=== PATIENT | female | born 1950 | race Caucasian/White ===

== ENCOUNTER → 2017-07-20 08:08 | Outpatient (CLI) | payer MEDICARE, SELFPAY ==
--- NOTE | 2017-07-20 13:51 | NEURO ---
NCS and/or EMG Patient Report Ordering Doctor: Go Davis DATE OF SERVICE: 07/20/17 Keyla Atwood is a 66-year-old female presents to chief complaint of numbness and tingling in both hands. Symptoms are worse on the left side. Electrodiagnostic findings: Median motor nerve demonstrates prolonged distal latency with normal amplitude and borderline reduced conduction velocity bilaterally. Normal left and right ulnar motor response bilaterally. Normal median ulnar F waves. Prolonged median sensory distal latency is noted bilaterally. On needle EMG, all muscles tested in the upper limbs show no evidence of denervation with normal motor unit action potentials Electrodiagnostic Impression: This is an abnormal study 1) Findings demonstrate bilateral median mononeuropathy. This is consistent with a moderate bilateral carpal tunnel syndrome If there are any further questions in regards to this exam, please do not hesitate to contact me
== END ==
PROVIDERS: Family Provider Family Medicine; PCP Family Medicine; Visit Provider Family Medicine
DX: R20.2 Paresthesia of skin (principal)
CPT/HCPCS: 95886; 95912

== ENCOUNTER 2017-09-13 05:54 | Day surgery (SDC) | payer MEDICARE, SELFPAY ==
--- NOTE | 2017-09-09 16:23 | PCM.HP.BLA ---
History and Physical DATE OF SURGERY: 09/13/2017 SCHEDULED PROCEDURE: Left carpal tunnel release, corticosteriod injection right carpal tunnel HISTORY OF PRESENT ILLNESS: This is a 66-year-old female who is been having ongoing bilateral hand pain for several years. Patient states the left is worse than the right. Patient complains of constant pain. It can reach as high as a 10 out of 10. Patient states she has numbness and tingling in all fingers of both hands. The pain does awaken her at night. She has increased pain with activities of daily living including driving gripping grasping objects. She has undergone an EMG nerve conduction study exam which does show bilateral carpal tunnel syndrome. After discussion with Dr. Pascual Albrecht, the patient would like to proceed with a left carpal tunnel release and corticosteroid injection into the right carpal tunnel. Patient currently denies any chest pain, shortness breath, fevers chills, or recent infections. Patient does have a medical history pertinent for hypercholesterolemia, irritable bowel syndrome and previous breast cancer. REVIEW OF SYSTEMS: ROS: Const: Denies anorexia, anxiety, change in appetite, fever and weight change,hard of hearing, and vision problems. Eyes: Wears contact lenses. ENMT: Reports hearing loss. CV: Denies chest pain, heart murmur, irregular heartbeat and peripheral vascular disease. Resp: Reports asthma (ALLERY INDUCED) but denies cough, pneumonia, sleep apnea, SOB, tuberculosis and wheezing GI: Reports constipation, diarrhea, dysphagia, heartburn, nausea and vomiting, but denies bloody stools, and difficulty swallowing. : Genital:. (F Genital Sx) Urinary: denies incontinence. Musculo: Denies leg swelling, trouble walking and weakness and limp. Skin: Denies Raynaud's, history of shingles and tattoo. Neuro: Reports difficulty with balance, numbness/tingling and vertigo but denies ambulatory dysfunction, dizziness and tremor. Psych: Reports insomnia at times, and stress, but denies anxiety, depression and mental illness Festus/Lymph: Reports bleeding/bruising tendency and past transfusion, but denies anemia. Reviewed, no changes. PAST MEDICAL HISTORY: Advance Care Plan: Other Directive, LIVING WILL Effective Date: 07/28/2016 Other Directive, POA Effective Date: 07/28/2016 PMH: Medical Problems: Cancer - breast - lumpectomy Hypercholesterolemia, IBS Accidents: Fracture - rt foot Other - concussion, stitches over l eye, nerve damage rt foot Surgical Hx: Foot - (1998) RT Hysterectomy - (1989) Tonsillectomy - (1962) Tubal Ligation - (1979) Rhinoplasty - 1975,1985 Lumpectomy - (2002) RT TKR - (07/28/2015) Spinal Fusions - X2 RT Knee Arthroscopy - (02/06/2015) Section - X3 RT TKR Revision - (08/25/2016) [email or web address] Anesthesia Complications: Nausea, Vomiting Assistive Devices: Glasses, Contacts - RT EYE Reviewed and updated. SOCIAL HISTORY: SH: Marital: .Occupation: Retired.Work Status: Retired.Hand Dominance: Right-handed. Personal Habits: Cigarette Use: Never.Alcohol: Occasionally.Drug Use: Denies Use.Enjoy Exercising: Exercises 1-3 X/Week. Reviewed and updated. VITALS: Ht: 64.5 Wt: 165lb Wt k.844 BMI: 27.9 BP: 142/86 Pulse: 68 Resp: 16 T: 97.7 T: 36.5C ALLERGIES: Cholesterol Unknown Statins Latex - Topical Reaction Pain Killers Unknown Iodine - Rash MEDICATIONS: Tramadol HCL 50 mg 1-2 by mouth every 6 hours as needed pain, Omeprazole 20 mg 1 cap PO bid, Montelukast Sodium 10 mg 1 by mouth every day, Azelastine HCL (Nasal) 0.1 % two sprays qhs, Fluticasone Propionate 50 mcg/Act uad, Vitamin D3 2000 Unit 1 by mouth every day, Calcium 500 mg 1 tab by mouth three times a day, Vitamin B6 1 tab PO tid, Zinc 1 tab PO tid, Alavert 10 mg 1 daily PRE-OP EXAM: General appearance:NORMAL Other: Eyes: Conjunctivae and lids: NORMAL Pupils: ERR Ears, Nose, Mouth, and Throat: NORMAL Other: Inspection of lips, teeth and gums: NORMAL Other: Neck: Examination of neck: no masses noted. Respiratory: Assessment of respiratory effort: NORMAL Other: Ausculation of lungs: clear to ausculation no wheeses, ronchi or rales. Cardiovascular: Ausculation of heart: regular rate and rhythem, no mummurs, gallops or rubs. Exam of carotid arteries: NORMAL Other: Gastrointestinal: Exam of abdomen: soft, nontender, nondistended bowel sounds present. PHYSICAL EXAMINATION: No appreciable atrophy bilaterally. Patient has full composite fist bilaterally full extension of fingers. She has good range of motion of bilateral wrists. She has decreased thumb strength on the left when compared to the right. Two-point discrimination is 5 mm throughout the right hand and 7 mm in the left thumb, 5 mm and the remainder of the digits on the left. IMAGING STUDIES: EMG nerve conduction study exam was obtained on August 01, 2017 which does show moderate carpal tunnel syndrome bilaterally. IMPRESSION: 1. Bilateral carpal tunnel syndrome 2. Hypercholesterolemia 3. Irritable bowel syndrome 4. Previous history of breast cancer with lumpectomy PLAN: Dr. Albrecht did discuss and review with the patient all treatment options including surgical versus nonsurgical. Patient wishes to proceed with above-stated procedure. Potential risks, benefits, and complications of this procedure were discussed in detail including but not limited to , infection, nerve and blood vessel damage, persistent pain, numbness, tingling, paresthesias, blood clot, pulmonary embolism, and requirement for further surgery. The patient expressed full understanding has no further questions for the doctor. Patient does agree to proceed with the above-stated procedure and has signed the surgery consent form. ___ I have re-examined the patient. There are no clinical changes since date of exam. ___ See progress notes for changes. ___ Dictated on admission Date: Time: Signature:
--- NOTE | 2017-09-09 16:29 | HP.PCM_ITS ---
History and Physical DATE OF SURGERY: 09/13/2017 SCHEDULED PROCEDURE: Left carpal tunnel release, corticosteriod injection right carpal tunnel HISTORY OF PRESENT ILLNESS: This is a 66-year-old female who is been having ongoing bilateral hand pain for several years. Patient states the left is worse than the right. Patient complains of constant pain. It can reach as high as a 10 out of 10. Patient states she has numbness and tingling in all fingers of both hands. The pain does awaken her at night. She has increased pain with activities of daily living including driving gripping grasping objects. She has undergone an EMG nerve conduction study exam which does show bilateral carpal tunnel syndrome. After discussion with Dr. Pascual Albrecht, the patient would like to proceed with a left carpal tunnel release and corticosteroid injection into the right carpal tunnel. Patient currently denies any chest pain, shortness breath, fevers chills, or recent infections. Patient does have a medical history pertinent for hypercholesterolemia, irritable bowel syndrome and previous breast cancer. REVIEW OF SYSTEMS: ROS: Const: Denies anorexia, anxiety, change in appetite, fever and weight change, hard of hearing, and vision problems. Eyes: Wears contact lenses. ENMT: Reports hearing loss. CV: Denies chest pain, heart murmur, irregular heartbeat and peripheral vascular disease. Resp: Reports asthma (ALLERY INDUCED) but denies cough, pneumonia, sleep apnea, SOB, tuberculosis and wheezing GI: Reports constipation, diarrhea, dysphagia, heartburn, nausea and vomiting, but denies bloody stools, and difficulty swallowing. : Genital:. (F Genital Sx) Urinary: denies incontinence. Musculo: Denies leg swelling, trouble walking and weakness and limp. Skin: Denies Raynaud's, history of shingles and tattoo. Neuro: Reports difficulty with balance, numbness/tingling and vertigo but denies ambulatory dysfunction, dizziness and tremor. Psych: Reports insomnia at times, and stress, but denies anxiety, depression and mental illness Festus/Lymph: Reports bleeding/bruising tendency and past transfusion, but denies anemia. Reviewed, no changes. PAST MEDICAL HISTORY: Advance Care Plan: Other Directive, LIVING WILL Effective Date: 07/28/2016 Other Directive, POA Effective Date: 07/28/2016 PMH: Medical Problems: Cancer - breast - lumpectomy Hypercholesterolemia, IBS Accidents: Fracture - rt foot Other - concussion, stitches over l eye, nerve damage rt foot Surgical Hx: Foot - (1998) RT Hysterectomy - (1989) Tonsillectomy - (1962) Tubal Ligation - (1979) Rhinoplasty - 1975,1985 Lumpectomy - (2002) RT TKR - (07/28/2015) Spinal Fusions - X2 RT Knee Arthroscopy - (02/06/2015) Section - X3 RT TKR Revision - (08/25/2016) [email or web address] Anesthesia Complications: Nausea, Vomiting Assistive Devices: Glasses, Contacts - RT EYE Reviewed and updated. SOCIAL HISTORY: SH: Marital: .Occupation: Retired.Work Status: Retired.Hand Dominance: Right- handed. Personal Habits: Cigarette Use: Never.Alcohol: Occasionally.Drug Use: Denies Use.Enjoy Exercising: Exercises 1-3 X/Week. Reviewed and updated. VITALS: Ht: 64.5 Wt: 165lb Wt k.844 BMI: 27.9 BP: 142/86 Pulse: 68 Resp: 16 T: 97.7 T: 36.5C ALLERGIES: Cholesterol Unknown Statins Latex - Topical Reaction Pain Killers Unknown Iodine - Rash MEDICATIONS: Tramadol HCL 50 mg 1-2 by mouth every 6 hours as needed pain, Omeprazole 20 mg 1 cap PO bid, Montelukast Sodium 10 mg 1 by mouth every day, Azelastine HCL ( Nasal) 0.1 % two sprays qhs, Fluticasone Propionate 50 mcg/Act uad, Vitamin D3 2000 Unit 1 by mouth every day, Calcium 500 mg 1 tab by mouth three times a day , Vitamin B6 1 tab PO tid, Zinc 1 tab PO tid, Alavert 10 mg 1 daily PRE-OP EXAM: General appearance:NORMAL Other: Eyes: Conjunctivae and lids: NORMAL Pupils: ERR Ears, Nose, Mouth, and Throat: NORMAL Other: Inspection of lips, teeth and gums: NORMAL Other: Neck: Examination of neck: no masses noted. Respiratory: Assessment of respiratory effort: NORMAL Other: Ausculation of lungs: clear to ausculation no wheeses, ronchi or rales. Cardiovascular: Ausculation of heart: regular rate and rhythem, no mummurs, gallops or rubs. Exam of carotid arteries: NORMAL Other: Gastrointestinal: Exam of abdomen: soft, nontender, nondistended bowel sounds present. PHYSICAL EXAMINATION: No appreciable atrophy bilaterally. Patient has full composite fist bilaterally full extension of fingers. She has good range of motion of bilateral wrists. She has decreased thumb strength on the left when compared to the right. Two-point discrimination is 5 mm throughout the right hand and 7 mm in the left thumb, 5 mm and the remainder of the digits on the left. IMAGING STUDIES: EMG nerve conduction study exam was obtained on August 01, 2017 which does show moderate carpal tunnel syndrome bilaterally. IMPRESSION: 1. Bilateral carpal tunnel syndrome 2. Hypercholesterolemia 3. Irritable bowel syndrome 4. Previous history of breast cancer with lumpectomy PLAN: Dr. Albrecht did discuss and review with the patient all treatment options including surgical versus nonsurgical. Patient wishes to proceed with above- stated procedure. Potential risks, benefits, and complications of this procedure were discussed in detail including but not limited to , infection , nerve and blood vessel damage, persistent pain, numbness, tingling, paresthesias, blood clot, pulmonary embolism, and requirement for further surgery. The patient expressed full understanding has no further questions for the doctor. Patient does agree to proceed with the above-stated procedure and has signed the surgery consent form. ___ I have re-examined the patient. There are no clinical changes since date of exam. ___ See progress notes for changes. ___ Dictated on admission Date: Time: Signature:
[2017-09-13] VITALS (7 sets, daily range): BP systolic 109–135; BP diastolic 55–75; PULSE 70–83; RESP 16–18; TEMP 35.9–36.4; O2SAT 94–100; BMI 26.9
--- NOTE | 2017-09-13 06:49 | PCM.OPRPT ---
Report of Operation Date of Procedure: 09/13/17 Pre-Operative Diagnosis: 1. Left carpal tunnel syndrome. 2. Right carpal tunnel syndrome Post-Operative Diagnosis: 1. Left carpal tunnel syndrome. 2. Right carpal tunnel syndrome Surgery/Procedure Performed:: 1. Left carpal tunnel release. 2. 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 After discussing risks and benefits including but not limited to blood loss, DVTs, PEs, neurovascular damage, infection, hematoma and general risk of anesthesia, the patient demonstrated understanding wish to proceed with left open carpal tunnel release Procedure: On the date of the procedure, the patient's left and right upper extremities were marked in the preoperative area. Patient was taken back to the operating room, where the tourniquet was placed on the right upper extremity. Patient was given light sedation. All bony prominences are identified well-padded. Anesthesia assumed control C-spine and airway and remained in control throughout the remainder the procedure. After patient was appropriately sedated the Right wrist was prepped in a sterile fashion. On the volar aspect of the wrist at the proximal wrist crease a 22-gauge needle was used to base 2 mL of 1% lidocaine and 1 mL of betamethasone performing the corticosteroid injection in the right wrist. At this time our attention was then directed back towards the left wrist where a Everest block was administered by anesthesia. The left upper extremity was prepped in sterile fashion. Surgeon then scrub. Upon reentering the room, the left upper extremity was prepped in a standard orthopedic fashion. A timeout was called and everyone agreed upon the side, the site, the procedure to be performed, patient identity and antibiotics given. The incision was marked out. Incision was taken at the skin subtenons tissue fat down to fascia. Fascia was then lightly tethered until the median nerve was visible. A Carson was placed proximally and distally, and then scissors were placed proximally and distally to release the transverse carpal ligament. During the release the others were never completely closed. The Carson was then placed proximally and distally once more to verify the transverse carpal ligament had been adequately released. The wound was then copiously irrigated out with normal saline. Wound was then closed using 3-0 nylon suture. [] cc of 50-50 mixture of 1% lidocaine and 0.5% Sensorcaine without epinephrine injection was given. Xeroform dressing was placed, sterile dressing was placed, compressive dressing was placed. Tourniquet was let down. Volar splint was placed. Patient was awakened by anesthesia and transferred to the PACU for recovery. Postoperative plan: The patient will follow up in 2 weeks for removal splint removal sutures. At that time if they are doing well they will follow-up as needed. - Complications None - Admit VTE Documentation VTE Present on Admission: No VTE Mechan Device Prophylaxis: SCD's, Thigh High TEE Hose VTE Pharm Prophylaxis ordered?: No Reason prophylaxis not ordered:: Treatment Not Indicated
[2017-09-13] MEDS: Cefazolin 1 GM/50 ML BAG IV (07:07)
[2017-09-13] MEDS: Triamcinolone Acetonide 40 MG/ML Vial (07:16)
[2017-09-13] MEDS: Bupivacaine 0.25% 30 ML Vial (07:23)
== END 2017-09-13 08:34 | disposition home or self-care (01) ==
LOC: SDC 05:55 → AC 05:57
PROVIDERS: Specialist; Family Provider Family Medicine; PCP Family Medicine; Visit Provider Orthopaedic Surgery
PROC: (CPT 64721; principal; 2017-09-13 07:00)
DX: G56.03 Carpal tunnel syndrome, bilateral upper limbs (principal); E78.00 Pure hypercholesterolemia, unspecified; K58.9 Irritable bowel syndrome, unspecified; K21.9 Gastro-esophageal reflux disease without esophagitis; Z85.3 Personal history of malignant neoplasm of breast; Z79.891 Long term (current) use of opiate analgesic; Z79.899 Other long term (current) drug therapy
CPT/HCPCS: 20605; 64721; J7120

== ENCOUNTER → 2017-09-19 11:16 | Outpatient (CLI) | payer MEDICARE, SELFPAY ==
[2017-09-19 13:02] LABS: Cholesterol 265 mg/dL (200); High Density Lipoprotein 75 mg/dL; Thyroid Stim Hormone (TSH) 1.85 uIU/mL (0.358-3.74); Triglycerides 147 mg/dL; Very Low Density Lipoprotein 29 mg/dL (5-40)
== END ==
PROVIDERS: Family Provider Family Medicine; PCP Family Medicine; Visit Provider Family Medicine
DX: E78.5 Hyperlipidemia, unspecified (principal); R63.5 Abnormal weight gain
CPT/HCPCS: 36415; 80061; 84443

== ENCOUNTER → 2018-01-06 09:53 | Outpatient (CLI) | payer MEDICARE, SELFPAY ==
--- NOTE | 2018-01-06 09:54 | BI_ITS ---
MAMMOGRAPHY - BILATERAL SCREENING REASON FOR EXAM: Female, 67 years old. Routine annual screening examination. PERTINENT HISTORY: Personal history of breast cancer. Prior left lumpectomy. Mother with breast cancer. TECHNIQUE: Digital bilateral breast bal (3D mammographic acquisition) in the CC and MLO projections. 2-D mediolateral oblique (MLO) and craniocaudad (CC) views of both breasts were obtained. CAD: Full Field Digital Mammography with Computer Added Detection was performed. COMPARISON: Comparison is made with prior study dated January 05, 2017 and November 04, 2015. FINDINGS: Breast Composition: There are scattered areas of fibroglandular density. There are no dominant masses or suspicious calcifications. Stable appearance of a 4.5 mm x 4.5 mm nodular density in the upper lateral aspect of the left breast. No other significant abnormalities are identified. There has been no significant change since the prior study. BI/SCREENING MAMM (CAD), BILAT IMPRESSION: Stable bilateral screening mammogram. Yearly follow-up mammogram recommended. (A) ASSESSMENT CATEGORY: BIRADS Category 2: Benign. A letter regarding these results will be sent to the patient by the facility within 30 days. Approximately 10% of breast cancers are not detected by mammography. A normal mammogram should not delay biopsy of a clinically suspicious abnormality. [id number] Electronically Signed: Charlie Walker MD at 12:37 EDT Tel [phone], Service support ,
== END ==
PROVIDERS: Family Provider Family Medicine; PCP Family Medicine; Visit Provider Family Medicine
DX: Z12.31 Encounter for screening mammogram for malignant neoplasm of breast (principal)
CPT/HCPCS: 77063; 77067

== ENCOUNTER 2018-03-13 05:48 | Day surgery (SDC) | payer MEDICARE, SELFPAY ==
[2018-03-13] VITALS (7 sets, daily range): BP systolic 113–134; BP diastolic 59–72; PULSE 67–85; RESP 16–18; TEMP 36–36.3; O2SAT 98–100; BMI 26.5
--- NOTE | 2018-03-13 07:01 | HP.PCM_ITS ---
Problem List (1) Personal history of colonic polyps Status: Acute History of Present Illness Date of Admission: 03/13/18 The patient is a 67 year old F presents to the office today for evaluation for colonoscopy. Patient had her last colonoscopy in [facility]. She was noted to have a tubular adenoma in the transverse colon which was subsequently removed. She has been moving her bowels appropriately has had no change in her bowel habits. Past Medical History Medical History: Medical History (Last Reviewed 03/13/18 @ 07:02 by Aldo Wheeler MD) Arthritis M19.90 Asthma J45.909 Breast cancer C50.919 Constipation K59.00 Diarrhea R19.7 GERD (gastroesophageal reflux disease) K21.9 Allergies latex Allergy (Verified 03/08/18 11:48) Rash oxycodone Allergy (Verified 03/08/18 11:48) UTACARIA acetaminophen [From [place]] Adverse Reaction (Verified 03/08/18 11:48) Nausea atorvastatin [From Lipitor] Adverse Reaction (Verified 03/08/18 11:48) MUSCLE CRAMPS hydrocodone [From [place]] Adverse Reaction (Verified 03/08/18 11:48) Nausea pravastatin Adverse Reaction (Verified 03/08/18 11:48) MUSCLE CRAMPS shellfish Allergy (Intermediate, Uncoded 01/12/18 14:22) rash/hives Home Medications: Ambulatory Orders Medication Instructions Recorded Azelastine HCl [Astelin] 2 spray NASAL DAILY 08/16/16 Calcium Carbonate [Calcium] 500 mg PO DAILY 08/16/16 Cholecalciferol (Vitamin D3) 2,000 unit PO DAILY 08/16/16 [Vitamin D3] Loratadine [Claritin] 10 mg PO DAILY 08/16/16 Montelukast Sodium [Singulair] 10 mg PO QHS 08/16/16 Omeprazole [Prilosec] 20 mg PO PRN PRN 08/16/16 Pyridoxine HCl [Vitamin B-6] 50 mg PO TID 09/12/17 Zinc 50 mg PO DAILY 09/12/17 fluticasone 50 mcg/actuation nasal 2 spray INTRANASAL QDAY 01/12/18 spray,suspension Surgical History: Surgical History (Last Reviewed 03/13/18 @ 07:02 by Aldo Wheeler MD) History of Z98.891 History of hysterectomy Z90.710 History of lumpectomy of left breast Z98.890 History of revision of total knee arthroplasty Z96.659 History of rhinoplasty Z98.890 History of spinal fusion Z98.1 History of tonsillectomy Z90.89 History of total knee replacement Z96.659 hhistory left carpal tunnel release history knee scope and meniscal repair Smoking Status: Never smoker - *Family History Maternal Family History: Family History (Last Reviewed 01/17/18 @ 14:36 by Aldo Wheeler MD) Mother Arthritis Bleeding disorder Breast cancer Cancer Brother Arthritis Grandmother Bleeding disorder History Items: No pertinent history Review of Systems Cardiovascular: Denies: Chest Pain, Chest Pressure, Chest Tightness, Palpitations Respiratory: Denies: Cough, Hemoptysis, Shortness of breath at rest, Shortness of breath upon exertion, Wheezing Gastrointestinal: Denies: Abdominal Pain, Constipation, Diarrhea, Hematemesis, Nausea, Melena, Vomiting VTE Information - Inpt Only VTE Present on Admission: No VTE Mechan Device Prophylaxis: None VTE Pharm Prophylaxis ordered?: No Reason prophylaxis not ordered:: Treatment Not Indicated Patient Problems: Active and Suspected Problems (Last Reviewed 01/17/18 @ 14:36 by Aldo Wheeler MD) Personal history of colonic polyps (Acute) - Physical Exam Lungs: Clear to auscultation Cardiovascular: Regular rate, Regular Rhythm, No murmurs Abdomen: Bowel Sounds Present, Soft, Non Tender, Non-Distended Vital Signs Temp Pulse Resp BP Pulse Ox 96.8 F L 67 16 134/72 H 100 03/13/18 06:27 03/13/18 06:27 03/13/18 06:27 03/13/18 06:27 03/13/18 06:27 Oxygen Delivery Method Room Air Weight: 161 lb 13.109 oz Body Mass Index (BMI) 26.5 Assessment/Plan All Active Problems (Last Reviewed 01/17/18 @ 14:36 by Aldo Wheeler MD) Personal history of colonic polyps (Acute) Plan is to perform a colonoscopy on her.
--- NOTE | 2018-03-13 07:28 | OP.ENDO_ITS ---
Patient Name: Keyla Atwood Procedure Date: 03/13/2018 6:49 AM Date of : 1950 Age: 67 Procedure: Colonoscopy Indications: High risk colon cancer surveillance: Personal history of colonic polyps Providers: Aldo Wheeler MD Medicines: See the Anesthesia note for documentation of the administered medications Patient Profile: Last Colonoscopy: 5 years ago. Complications: No immediate complications. Procedure: Pre-Anesthesia Assessment: - Prior to the procedure, a History and Physical was performed, and patient medications and allergies were reviewed. The patient's tolerance of previous anesthesia was also reviewed. The risks and benefits of the procedure and the sedation options and risks were discussed with the patient. All questions were answered, and informed consent was obtained. Prior Anticoagulants: The patient has taken no previous anticoagulant or antiplatelet agents. ASA Grade Assessment: II - A patient with mild systemic disease. After reviewing the risks and benefits, the patient was deemed in satisfactory condition to undergo the procedure. After I obtained informed consent, the scope was passed under direct vision. Throughout the procedure, the patient's blood pressure, pulse, and oxygen saturations were monitored continuously. The adult colonoscope was introduced through the anus and advanced to the cecum, identified by appendiceal orifice and ileocecal valve. The colonoscopy was performed without difficulty. The patient tolerated the procedure well. The quality of the bowel preparation was good. Scope In: 7:07:01 AM Scope Withdrawal Time 0 hours 6 minutes 7 seconds Scope Out: 7:20:50 AM Total Procedure Duration Time 0 hours 13 minutes 49 seconds Findings: The perianal and digital rectal examinations were normal. Multiple small-mouthed diverticula were found in the sigmoid colon. The exam was otherwise without abnormality on direct and retroflexion views. Impression: - Diverticulosis in the sigmoid colon. - The examination was otherwise normal on direct and retroflexion views. - No specimens collected. Recommendation: - Discharge patient to home. - Resume previous diet. - Continue present medications. - Return to primary care physician PRN. - Repeat colonoscopy in 10 years for screening purposes. Procedure Code(s): --- Professional --- G0105, Colorectal cancer screening; colonoscopy on individual at high risk Diagnosis Code(s): --- Professional --- Z86.010, Personal history of colonic polyps K57.30, Diverticulosis of large intestine without perforation or abscess without bleeding CPT copyright 2017 [employer]. All rights reserved. The codes documented in this report are preliminary and upon psychological operations officer review may be revised to meet current compliance requirements. MD Aldo Herr MD 03/13/2018 7:27:51 AM This report has been signed electronically. Number of Addenda: 0 Note Initiated On: 03/13/2018 6:49 AM
== END 2018-03-13 08:18 | disposition home or self-care (01) ==
LOC: EN 05:50 → AC 05:51
PROVIDERS: Family Provider Family Medicine; PCP Family Medicine; Visit Provider Surgery
PROC: 0DJD8ZZ Inspection of Lower Intestinal Tract, Via Natural or Artificial Opening Endoscopic (ICD-10-PCS; CPT 45378; principal; 2018-03-13 06:55)
DX: Z12.11 Encounter for screening for malignant neoplasm of colon (principal); K57.30 Diverticulosis of large intestine without perforation or abscess without bleeding; Z86.010 Personal history of colon polyps; K21.9 Gastro-esophageal reflux disease without esophagitis; J45.909 Unspecified asthma, uncomplicated; Z85.3 Personal history of malignant neoplasm of breast; Z79.899 Other long term (current) drug therapy
CPT/HCPCS: G0121; J7120

== ENCOUNTER → 2018-04-05 10:07 | Outpatient (CLI) | payer MEDICARE, SELFPAY | PROVIDERS: Family Provider Family Medicine; PCP Family Medicine; Visit Provider Family Medicine | DX: R10.13 Epigastric pain (principal); K21.9 Gastro-esophageal reflux disease without esophagitis ==

== ENCOUNTER → 2018-07-03 11:36 | Outpatient (CLI) | payer MEDICARE, SELFPAY ==
[2018-07-03 15:28] LABS: Absolute Neutrophil Count 4.4 X10^3/uL (2.0-7.7); Basophil# 0.03 X10^3/uL; Basophil% 0.4 % (0-1); Eosinophil# 0.15 X10^3/uL; Eosinophils% 2.2 % (0-5); Hematocrit 40.5 % (37-47); Hemoglobin 13.6 g/dl (12.0-15.0); Lymphocyte % 25.9 % (19-41); Mean Corp Hgb Conc 33.6 g/gl (32-36); Mean Corpuscular Hgb 32.5 pg (27.0-32.0); Mean Corpuscular Volume 96.9 fL (81-99); Mean Platelet Vol. 10.9 fl (6.2-12.0); Monocyte# 0.57 X10^3/uL; Monocyte% 8.2 % (0-10); Neutrophil # 4.39 X10^3/uL (2.7-7.7); Platelet Count 266 K/mm3 (150-450); RBC Distribution Width CV 12.1 % (11.6-14.6); RBC Distribution Width SD 41.5 fl (35.1-43.9); Red Blood Count 4.18 M/mm3 (4.2-5.4)
[2018-07-03 15:34] LABS: POSITIVE COUNT NO; POSITIVE DIFFERENTIAL NO; POSITIVE MORPHOLOGY NO
[2018-07-03 15:58] LABS: ALB/GLOB Ratio 1.1 RATIO (0.9-2.4); AST(SGOT) 23 U/L (15-37); Alanine Aminotransfer ALT/SGPT 44 U/L (13-56); Albumin, Serum 3.9 g/dL (3.2-5.0); Alkaline Phosphatase 99 U/L (45-117); Amylase 45 U/L (25-115); Anion Gap 10 (5-15); BUN 13 mg/dL (7-18); Calcium,Total 9.2 mg/dL (8.5-10.1); Chloride 108 mmol/L (98-107); Cholesterol 252 mg/dL (200); Creatinine, Serum 0.72 mg/dL (0.55-1.02); EST Glomerular Filtration Rate 85 mL/min (>60); Est Glom Filt Rate - Afr Amer 103 mL/min (>60); Globulin 3.5 g/dL (2.2-4.2); Glucose 86 mg/dL (74-106); High Density Lipoprotein 57 mg/dL; Lipase 99 U/L (73-393); Potassium 3.9 mmol/L (3.5-5.1); Protein, Total 7.4 g/dL (6.4-8.2); Sodium Level 142 mmol/L (136-145); Triglycerides 166 mg/dL; Very Low Density Lipoprotein 33 mg/dL (5-40)
== END ==
PROVIDERS: Family Provider Family Medicine; PCP Family Medicine; Visit Provider Family Medicine
DX: Z00.01 Encounter for general adult medical examination with abnormal findings (principal); E78.5 Hyperlipidemia, unspecified; R10.9 Unspecified abdominal pain; Q45.3 Other congenital malformations of pancreas and pancreatic duct
CPT/HCPCS: 36415; 80053; 80061; 82150; 83690; 85025

== ENCOUNTER → 2018-07-08 08:23 | Outpatient (CLI) | payer MEDICARE, SELFPAY ==
--- NOTE | 2018-07-08 08:33 | US_ITS ---
HISTORY: PAIN, NAUSEA, VOMITING, DIARRHEA FOR SEVERAL MONTHS TECHNIQUE: Transabdominal ultrasound was performed with real-time and static styles-scale imaging. COMPARISON: None FINDINGS: # of images incl. paperwork: 165 Liver: There is normal echogenicity of the liver. The bile ducts are within normal limits. There is no demonstrated mass lesion. Gallbladder: Normal distended gallbladder. The gallbladder wall measures 2 mm. There is a negative sonographic Barrios's sign. There is no pericholecystic fluid. There are no gallstones. Common Bile Duct: The common bile duct measures 4 mm. Spleen: Normal size of the spleen. The spleen measures 10.3 cm. Pancreas: There is normal echogenicity of the pancreas. There is no demonstrated pancreatic mass or cyst. Right Kidney: Normal size of the right kidney. The right kidney measures 9.8 x 4.9 x 4.3 cm. Normal renal cortex. There is no demonstrated renal mass or cyst. There is no right hydronephrosis. Left Kidney: Normal size of the left kidney. The left kidney measures 9.7 x 5.1 x 5.4 cm. Normal renal cortex. 8 mm rounded hyperechoic nonshadowing lesion in the medial, mid pole aspect of the left kidney, probably within the cortex. There is no left hydronephrosis. Aorta: Normal caliber.. IVC: The IVC is patent. There is no ascites. US/Abdomen Complete IMPRESSION: No acute findings. 8 mm rounded hyperechoic nonshadowing structure in the medial mid pole left kidney. Differential includes angiomyolipoma or a focus of mineralization. Other neoplasm not excluded. If not previously interrogated, consider follow-up renal protocol CT. at 0963 Reported and signed by: Agustin East MD Electronically Signed: Agustin East, at 23:17 EST Tel , Service support ,
--- OUTSIDE RECORDS SUMMARY | 2018-09-11 09:16 | XMS RPT_ITS ---
:1950 Author Organization [place] Support Name Relationship Address Phone ANDRE ATWOOD Unavailable [address] + [place] [address] R Unavailable Unavailable Unavailable MAXX, SAPPHIRE Unavailable Unavailable + [place] [address] ANDRE ATWOOD Unavailable [address] + [place] [address] R Unavailable Unavailable Unavailable MAXX, SAPPHIRE Unavailable Unavailable + KEELY, ANDRE Unavailable [address] + [place] [address] R Unavailable Unavailable Unavailable MAXX, SAPPHIRE Unavailable Unavailable + KEELY ANDRE Unavailable [address] + [place] [address] R Unavailable Unavailable Unavailable MAXX, SAPPHIRE Unavailable Unavailable + KEELY, ANDRE Unavailable [address] + [place] [address] R Unavailable Unavailable Unavailable MAXX, SAPPHIRE Unavailable Unavailable + KEELY ANDRE Unavailable [address] + [place] [address] R Unavailable Unavailable Unavailable KEELY, ANDRE Unavailable [address] + [place] [address] R Unavailable Unavailable Unavailable KEELY, ANDRE Unavailable [address] + [place] [address] R Unavailable Unavailable Unavailable KEELY, ANDRE Unavailable [address] + [place] [address] R Unavailable Unavailable Unavailable KEELY, ANDRE Unavailable / + [place] [address] R Unavailable Unavailable Unavailable Care Team Providers Name Role Phone Go Davis Attending Unavailable Susan, Go Primary Care Unavailable Susan, Go Attending Unavailable Susan, Go Referring Unavailable Susan, Go Primary Care Unavailable Susan, Go Attending Unavailable Susan, Go Referring Unavailable Susan, Go Primary Care Unavailable Kalyan, Christopher Attending Unavailable Kalyan, Christopher Referring Unavailable Susan, Go Primary Care Unavailable Jelani Albrecht Consulting Unavailable Susan, Go Attending Unavailable Susan, Go Primary Care Unavailable Susan, Go Attending Unavailable Susan, Go Referring Unavailable Susan, Go Primary Care Unavailable Liam, Aldo Attending Unavailable Susan, Go Referring Unavailable Susan, Go Primary Care Unavailable Sidell, Aldo Attending Unavailable Liam, Aldo Referring Unavailable Susan, Go Primary Care Unavailable Liam, Aldo Attending Unavailable Susan, Go Attending Unavailable Susan, Go Primary Care Unavailable PROBLEMS PROBLEMS DATE TYPE CONDITION / CODE ATTENDING STATUS SOURCE 07/04/2018 Unknown Z00.01 - Encounter Go Davis Shazia [facility] for [facility] Hospital with abnormal Repository findings / Z00.01(ICD-10) 07/04/2018 Unknown E78.5 - Go Davis Active [facility] Hyperlipidemia, Community unspecified / Hospital E78.5(ICD-10) Repository 07/04/2018 Unknown R10.9 - Unspecified Go Davis Active [facility] abdominal pain / Community R10.9(ICD-10) Hospital Repository 07/04/2018 Unknown 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 / Q45.3(ICD-10) 05/01/2018 Unknown R10.13 - Epigastric Go Davis Active [facility] pain / Community R10.13(ICD-10) Hospital Repository 03/30/2018 Unknown Z86.010 - Personal Aldo Wheeler Active [facility] history of colonic Community polyps / Hospital Z86.010(ICD-10) Repository 03/30/2018 Unknown K57.30 - Aldo Wheeler Active [facility] Diverticulosis of [facility] large intestine Hospital without perforation Repository or abscess without bleeding / K57.30(ICD-10) 09/19/2017 Unknown R63.5 - Abnormal Go Davis Active [facility] weight gain / Community R63.5(ICD-10) Hospital Repository 08/03/2017 Unknown R20.2 - Paresthesia Go Davis Active [facility] of skin / Community R20.2(ICD-10) Hospital Repository PROCEDURES PROCEDURES No Procedure Records FoundRESULTS RESULTS ABDOMEN COMPLETE Observed: 07/08/2018 Status: F Source: [facility] 8:33 AM [facility] REPOSITORY [facility] Imaging Services [address] [place] [address] Abdomen Complete MR#: [id number] Acct: [id number] Name: BEENA ATWOOD Rep #: [id number] : 1950 F 67 From: Agustin East MD PCP: Go Davis DO Status: REG CLI Study: Abdomen Complete Date of Exam: 07/08/18 Exam# [id number] Ordering Dr: Go Davis DO HISTORY: PAIN, NAUSEA, VOMITING, DIARRHEA FOR SEVERAL MONTHS TECHNIQUE: Transabdominal ultrasound was performed with real- time and static styles-scale imaging. COMPARISON: None FINDINGS: # of images incl. paperwork: 165 Liver: There is normal echogenicity of the liver. The bile ducts are within normal limits. There is no demonstrated mass lesion. Gallbladder: Normal distended gallbladder. The gallbladder wall measures 2 mm. There is a negative sonographic Abrrios's sign. There is no pericholecystic fluid. There are no gallstones. Common Bile Duct: The common bile duct measures 4 mm. Spleen: Normal size of the spleen. The spleen measures 10.3 cm. Pancreas: There is normal echogenicity of the pancreas. There is no demonstrated pancreatic mass or cyst. Right Kidney: Normal size of the right kidney. The right kidney measures 9.8 x 4.9 x 4.3 cm. Normal renal cortex. There is no demonstrated renal mass or cyst. There is no right hydronephrosis. Left Kidney: Normal size of the left kidney. The left kidney measures 9.7 x 5.1 x 5.4 cm. Normal renal cortex. 8 mm rounded hyperechoic nonshadowing lesion in the medial, mid pole aspect of the left kidney, probably within the cortex. There is no left hydronephrosis. Aorta: Normal caliber.. IVC: The IVC is patent. There is no ascites. US/Abdomen Complete IMPRESSION: No acute findings. 8 mm rounded hyperechoic nonshadowing structure in the medial mid pole left kidney. Differential includes angiomyolipoma or a focus of mineralization. Other neoplasm not excluded. If not previously interrogated, consider follow-up renal protocol CT. at 2318 Reported and signed by: Agustin East MD Electronically Signed: Agustin East, at 23:17 EST Tel , Service support , CC: Go Davis DO Reversing Mill Roller: Signed CBC W/DIFF, AUTOMATED Collected: 07/03/2018 Status: F Source: [place] 11:38 AM [facility] REPOSITORY TYPE CODE TESTS RESULT OUT OF RANGE REFERENCE UNITS LAB L100.1000 4.4-11.0 K/mm3 Normal WBC 7.0 LAB L100.1200 4.2-5.4 M/mm3 Low RBC 4.18 LAB L100.1300 12.0-15.0 g/dl Normal HGB 13.6 LAB L100.1400 37-47 % Normal HCT 40.5 LAB L100.1500 81-99 fL Normal MCV 96.9 LAB L100.1600 27.0-32.0 pg High MCH 32.5 LAB L100.1700 32-36 g/gl Normal MCHC 33.6 LAB L100.1810 11.6-14.6 % Normal RDW CV 12.1 LAB L100.1820 35.1-43.9 fl Normal RDW SD 41.5 LAB L100.1900 150-450 K/mm3 Normal PLT 266 LAB L100.2000 6.2-12.0 fl Normal MPV 10.9 LAB L100.2100 47-70 % Normal NEUT% 63.0 LAB L100.2200 19-41 % Normal LY% 25.9 LAB L100.2300 0-10 % Normal MONO% 8.2 LAB L100.2400 0-5 % Normal EO% 2.2 LAB L100.2500 0-1 % Normal BASO% 0.4 LAB L100.2550 0.0-0.9 % Normal IM GRAN % 0.300 Result Comment: IG% - Immature Granulocytes (promyelocytes, myelocytes and metamyelocytes) > 1% indicates that a LEFT SHIFT is Present. LAB L100.2620 2.0-7.7 X10 3/uL Normal Absolute Neut 4.4 LAB L100.2720 0.83-4.51 X10 3/ul Normal Absolute Lymph 1.80 Performed By: #### L100.0100 #### [facility] [address] [place], [address] COMPREHENSIVE METABOLIC Collected: 07/03/2018 Status: F Source: [facility] 11:38 AM [facility] REPOSITORY TYPE CODE TESTS RESULT OUT OF RANGE REFERENCE UNITS LAB L501.0100 74-106 mg/dL Normal GLU 86 Result Comment: Please note revised GLUCOSE reference range effective 2017. LAB L501.1000 7-18 mg/dL Normal BUN 13 LAB L501.1100 0.55-1.02 mg/dL Normal CREAT,SERUM 0.72 Result Comment: The validity of the calculated GFR AND GFRAA in patients over 70 years has not been determined. Clinical correlation is essential. LAB L501.1110 >60 mL/min Normal EST GFR 85 Result Comment: Non- GFR Calc LAB L501.1115 >60 mL/min Normal EST GFR - AA 103 Result Comment: GFR Calc LAB L501.1300 10-20 RATIO Normal BUN/CRE 18.0 LAB L501.1500 6.4-8.2 g/dL T Normal PROT 7.4 LAB L501.1800 3.2-5.0 g/dL Normal ALB 3.9 LAB L501.1950 2.2-4.2 g/dL Normal GLOB 3.5 LAB L501.2000 0.9-2.4 RATIO Normal A/G 1.1 LAB L501.2200 8.5-10.1 mg/dL CA Normal 9.2 LAB L501.4100 15-37 U/L Normal AST 23 LAB L501.4305 45-117 U/L Normal ALK P 99 LAB L501.4405 13-56 U/L Normal ALT 44 LAB L501.4600 0.20-1.00 mg/dL T Normal BILI 0.60 LAB L501.5300 136-145 mmol/L NA Normal 142 LAB L501.5600 3.5-5.1 mmol/L K Normal 3.9 LAB L501.5900 98-107 mmol/L High CL 108 LAB L501.6100 21.0-32.0 mmol/L Normal CO2 24.0 LAB L501.6200 5-15 Normal GAP 10 Performed By: #### L500.4050, L500.4100, L501.2400, L501.2450 #### [facility] [address] [place], [address] LIPID PROFILE Collected: 07/03/2018 Status: F Source: [place] 11:38 AM [facility] REPOSITORY TYPE CODE TESTS RESULT OUT OF RANGE REFERENCE UNITS LAB L501.4900 200 mg/dL High CHOL 252 Result Comment: <200 mg/dL Desirable 200-240 mg/dL Borderline >240 mg/dL High Risk LAB L501.5000 mg/dL Normal TRIG 166 Result Comment: The drugs N-Acetylcysteine and Metamizole may falsely depress this assay. Serum Triglycerides Reference Interval Normal <150 mg/dL Borderline high 150 - 199 mg/dL High 200 - 499 mg/dL Very High > or = 500 mg/dL LAB L501.6400 mg/dL Normal HDL 57 Result Comment: The drugs N-Acetylcysteine and Metamizole may falsely depress this assay. Reference Range HDL <40 mg/dL Low HDL Cholesterol HDL >or= 60 mg/dL High HDL Cholesterol LAB L501.6500 0-130 mg/dL High LDL 162 LAB L501.6600 5-40 mg/dL Normal VLDL 33 Performed By: #### L500.4050, L500.4100, L501.2400, L501.2450 #### [facility] [address] [place], [address] AMYLASE Collected: 07/03/2018 Status: F Source: [place] 11:38 AM [facility] REPOSITORY TYPE CODE TESTS RESULT OUT OF RANGE REFERENCE UNITS LAB L501.2400 25-115 U/L Normal ANSATASIA 45 Performed By: #### L500.4050, L500.4100, L501.2400, L501.2450 #### [facility] [address] [place], [address] LIPASE Collected: 07/03/2018 Status: F Source: [place] 11:38 AM [facility] REPOSITORY TYPE CODE TESTS RESULT OUT OF RANGE REFERENCE UNITS LAB L501.2450 73-393 U/L Normal LIPASE 99 Performed By: #### L500.4050, L500.4100, L501.2400, L501.2450 #### [facility] [address] [facility] [place], [address] MISCELLANEOUS LAB Collected: 04/05/2018 Status: F Source: [place] PROCEDURE 10:09 AM [facility] REPOSITORY Order Comment: Comments: H.PYLORI BREATH TEST Test(s) Ordered: [id number] TYPE CODE TESTS RESULT OUT OF RANGE REFERENCE UNITS LAB L801.1541 Normal [facility] LAB TEST Result Comment: TEST RESULT LIMITS H pylori Breath Test Negative Negative TESTING PERFORMED AT [facility]. ORIGINAL REPORT ON FILE IN LAB CONTAINS ADDITIONAL TEST SITE INFORMATION. Performed By: #### L801.1541 #### [facility] [address] [place], [address] HISTORY AND PHYSICAL Observed: 03/13/2018 Status: F Source: [place] EXAM 7:28 AM [facility] REPOSITORY [facility] Medical Records Department [address] [place], [place] [address] [address] History and Physical 03/13/18 0701 MR#: [id number] Acct: [id number] Name: KEELYBEENA DOUGHERTY Rep #: [id number] : 1950 67 From: Aldo Wheeler MD PCP: Susan DO,Go Status: REG [facility] Y Location: [facility] Problem List (1) Personal history of colonic polyps Status: Acute History of Present Illness Date of Admission: 03/13/18 The patient is a 67 year old F presents to the office today for evaluation for colonoscopy. Patient had her last colonoscopy in [facility]. She was noted to have a tubular adenoma in the transverse colon which was subsequently removed. She has been moving her bowels appropriately has had no change in her bowel habits. Past Medical History Medical History: Medical History (Last Reviewed 03/13/18 @ 07:02 by Aldo Wheeler MD) Arthritis M19.90 Asthma J45.909 Breast cancer C50.919 Constipation K59.00 Diarrhea R19.7 GERD (gastroesophageal reflux disease) K21.9 Allergies latex Allergy (Verified 03/08/18 11:48) Rash oxycodone Allergy (Verified 03/08/18 11:48) UTACARIA acetaminophen [From [place]] Adverse Reaction (Verified 03/08/18 11:48) Nausea atorvastatin [From Lipitor] Adverse Reaction (Verified 03/08/18 11:48) MUSCLE CRAMPS hydrocodone [From [place]] Adverse Reaction (Verified 03/08/18 11:48) Nausea pravastatin Adverse Reaction (Verified 03/08/18 11:48) MUSCLE CRAMPS shellfish Allergy (Intermediate, Uncoded 01/12/18 14:22) rash/hives Home Medications: Ambulatory Orders Medication Instructions Recorded Azelastine HCl [Astelin] 2 spray NASAL DAILY 08/16/16 Calcium Carbonate [Calcium] 500 mg PO DAILY 08/16/16 Cholecalciferol (Vitamin D3) 2,000 unit PO DAILY 08/16/16 Surgical History: Surgical History (Last Reviewed 03/13/18 @ 07:02 by Aldo Wheeler MD) History of Z98.891 History of hysterectomy Z90.710 History of lumpectomy of left breast Z98.890 History of revision of total knee arthroplasty Z96.659 History of rhinoplasty Z98.890 History of spinal fusion Z98.1 History of tonsillectomy Z90.89 History of total knee replacement Z96.659 hhistory left carpal tunnel release history knee scope and meniscal repair Smoking Status: Never smoker - *Family History Maternal Family History: Family History (Last Reviewed 01/17/18 @ 14:36 by Aldo Wheeler MD) Mother Arthritis Bleeding disorder Breast cancer Cancer Brother Arthritis Grandmother Bleeding disorder History Items: No pertinent history Review of Systems Cardiovascular: Denies: Chest Pain, Chest Pressure, Chest Tightness, Palpitations Respiratory: Denies: Cough, Hemoptysis, Shortness of breath at rest, Shortness of breath upon exertion, Wheezing Gastrointestinal: Denies: Abdominal Pain, Constipation, Diarrhea, Hematemesis, Nausea, Melena, Vomiting VTE Information - Inpt Only VTE Present on Admission: No VTE Mechan Device Prophylaxis: None VTE Pharm Prophylaxis ordered?: No Reason prophylaxis not ordered:: Treatment Not Indicated Patient Problems: Active and Suspected Problems (Last Reviewed 01/17/18 @ 14:36 by Aldo Wheeler MD) Personal history of colonic polyps (Acute) - Physical Exam Lungs: Clear to auscultation Cardiovascular: Regular rate, Regular Rhythm, No murmurs Abdomen: Bowel Sounds Present, Soft, Non Tender, Non-Distended Vital Signs Temp Pulse Resp BP Pulse Ox 96.8 F L 67 16 134/72 H 100 03/13/18 06:27 03/13/18 06:27 03/13/18 06:27 03/13/18 06:27 03/13/18 06:27 Oxygen Delivery Method Room Air Weight: 161 lb 13.109 oz Body Mass Index (BMI) 26.5 Assessment/Plan All Active Problems (Last Reviewed 01/17/18 @ 14:36 by Aldo Wheeler MD) Personal history of colonic polyps (Acute) Plan is to perform a colonoscopy on her. 03/13/18 0728 <Electronically signed by Aldo Wheeler MD> Date Aldo Wheeler MD Cosigner Signature: Date (if applicable) CC: Aldo Wheeler MD; Go Davis DO Signed OPERATIVE REPORT - Observed: 03/13/2018 Status: F Source: [place] ENDOSCOPY 7:28 AM [facility] REPOSITORY [facility] Medical Records Department [address] [place] [address] Operative Report - Endoscopy MR#: [id number] Acct: [id number] Name: BEENA ATWOOD Rep #: [id number] : 1950 67 From: Aldo Wheeler MD PCP: Go Davis DO Status: REG [facility] Patient Name: Beena Atwood Procedure Date: 03/13/2018 6:49 AM Date of : 1950 Age: 67 Procedure: Colonoscopy Indications: High risk colon cancer surveillance: Personal history of colonic polyps Providers: Aldo Wheeler MD Medicines: See the Anesthesia note for documentation of the administered medications Patient Profile: Last Colonoscopy: 5 years ago. Complications: No immediate complications. Procedure: Pre-Anesthesia Assessment: - Prior to the procedure, a History and Physical was performed, and patient medications and allergies were reviewed. The patient's tolerance of previous anesthesia was also reviewed. The risks and benefits of the procedure and the sedation options and risks were discussed with the patient. All questions were answered, and informed consent was obtained. Prior Anticoagulants: The patient has taken no previous anticoagulant or antiplatelet agents. ASA Grade Assessment: II - A patient with mild systemic disease. After reviewing the risks and benefits, the patient was deemed in satisfactory condition to undergo the procedure. After I obtained informed consent, the scope was passed under direct vision. Throughout the procedure, the patient's blood pressure, pulse, and oxygen saturations were monitored continuously. The adult colonoscope was introduced through the anus and advanced to the cecum, identified by appendiceal orifice and ileocecal valve. The colonoscopy was performed without difficulty. The patient tolerated the procedure well. The quality of the bowel preparation was good. Scope In: 7:07:01 AM Scope Withdrawal Time 0 hours 6 minutes 7 seconds Scope Out: 7:20:50 AM Total Procedure Duration Time 0 hours 13 minutes 49 seconds Findings: The perianal and digital rectal examinations were normal. Multiple small-mouthed diverticula were found in the sigmoid colon. The exam was otherwise without abnormality on direct and retroflexion views. Impression: - Diverticulosis in the sigmoid colon. - The examination was otherwise normal on direct and retroflexion views. - No specimens collected. Recommendation: - Discharge patient to home. - Resume previous diet. - Continue present medications. - Return to primary care physician PRN. - Repeat colonoscopy in 10 years for screening purposes. Procedure Code(s): --- Professional --- G0105, Colorectal cancer screening; colonoscopy on individual at high risk Diagnosis Code(s): --- Professional --- Z86.010, Personal history of colonic polyps K57.30, Diverticulosis of large intestine without perforation or abscess without bleeding CPT copyright 2017 [employer]. All rights reserved. The codes documented in this report are preliminary and upon death surveys coder review may be revised to meet current compliance requirements. MD Aldo Herr MD 03/13/2018 7:27:51 AM This report has been signed electronically. Number of Addenda: 0 Note Initiated On: 03/13/2018 6:49 AM 03/13/18 0728 Date Aldo Wheeler MD Cosigner Signature: Date (if indicated) CC: Aldo Wheeler MD; Go Davis DO Date Dictated: 03/13/18 0649 Date Transcribed: Reversing Mill Roller: JESE Signed SURGERY VISIT REPORT Observed: 01/17/2018 Status: F Source: [place] 2:41 PM [facility] REPOSITORY [facility] [address] [place] [address] [address] [place] [address] OFFICE VISIT Date of Service: 01/12/18 MR#: [id number] Acct: [id number] Name: BEENA ATWOOD Rep #: [id number] : 1950 Provider: Aldo Wheeler MD Age/Sex: 67/F Location: [facility] Status: Signed Intake Vital Signs01/12/18 Height 5 ft 6 in 01/12/18 Weight: 165 lb Intake Visit Reasons: Schedule Cscope Md Allergy Immunology Required: No Is patient in pain?: No Allergies latex Allergy (Verified 08/16/16 15:13) Rash oxycodone Allergy (Verified 08/16/16 15:13) UTACARIA acetaminophen [From [place]] Adverse Reaction (Verified 08/16/16 15:13) Nausea atorvastatin [From Lipitor] Adverse Reaction (Verified 08/16/16 15:13) MUSCLE CRAMPS hydrocodone [From [place]] Adverse Reaction (Verified 08/16/16 15:13) Nausea pravastatin Adverse Reaction (Verified 08/16/16 15:13) MUSCLE CRAMPS shellfish Allergy (Intermediate, Uncoded 01/12/18 14:22) rash/hives Medications Azelastine HCl [Astelin] 2 spray NASAL BID 08/16/16 [History Confirmed 01/12/18] Calcium Carbonate [Calcium] 500 mg PO DAILY 08/16/16 [History Confirmed 01/12/18] Cholecalciferol (Vitamin D3) [Vitamin D3] 2,000 unit PO DAILY 08/16/16 [History Confirmed 01/12/18] Loratadine [Claritin] 10 mg PO DAILY 08/16/16 [History Confirmed 01/12/18] Montelukast Sodium [Singulair] 10 mg PO QHS 08/16/16 [History Confirmed 01/12/18] Omeprazole [Prilosec] 20 mg PO PRN PRN 08/16/16 [History Confirmed 01/12/18] Pyridoxine HCl [Vitamin B-6] 50 mg PO TID 09/12/17 [History Confirmed 01/12/18] Zinc 50 mg PO DAILY 09/12/17 [History Confirmed 01/12/18] fluticasone 50 mcg/actuation nasal spray,suspension 2 spray INTRANASAL QDAY 01/12/18 [History Confirmed 01/12/18] [facility] Medical History Arthritis (Acute) Asthma (Acute) Breast cancer (Acute) Constipation (Acute) Diarrhea (Acute) GERD (gastroesophageal reflux disease) (Acute) Surgical History History of (Acute) History of hysterectomy (Acute) History of lumpectomy of left breast (Acute) History of revision of total knee arthroplasty (Acute) History of rhinoplasty (Acute) History of spinal fusion (Acute) History of tonsillectomy (Acute) History of total knee replacement (Acute) hhistory left carpal tunnel release (Acute) history knee scope and meniscal repair (Acute) Family History Mother Arthritis Bleeding disorder Breast cancer Cancer oral cancer Brother Arthritis Grandmother Bleeding disorder Social History Smoking Status: Never smoker alcohol intake: current alcohol intake frequency: a few times a month substance use type: does not use HPI HPI HPI: BEENA ATWOOD, is a 67 F who presents to the office today for evaluation for colonoscopy. Patient had her last colonoscopy in [facility]. She was noted to have a tubular adenoma in the transverse colon which was subsequently removed. She has been moving her bowels appropriately has had no change in her bowel habits. ROS General General: Yes breast cancer; no weight change, appetite, fatigue, colon cancer or weakness HEENT HEENT: No difficulty swallowing, eye injury, eye surgery, swollen glands or hoarseness Endo Endocrine: No thyroid disease, diabetes mellitus, thyroid cancer, Hair loss, heat intolerance or cold intolerance Skin Skin: Yes rash and changing moles Breast Breast: No left breast lump, right breast lump, nipple discharge, breast pain, abnormal mammogram, abnormal US or breast enlargement Musc Musculoskeletal: Yes back problems, arthritis and rheumatoid arthritis; no gout or joint pain Cardio Cardiovascular: No murmur, pacemaker, heart disease, atrial fibrillation, high blood pressure, heart attack, heart stent, palpitations, shortness of breat with exertion or chest pain Psych Psychiatric: No depression, anxiety or hearing voices Resp Respiratory: No shortness of breath, No sleep apnea, No cough, No COPD, Yes asthma, No emphysema, No wheezing Gastro Gastrointestinal: No abdominal pain, Yes nausea or vomiting, Yes diarrhea, Yes constipation, No blood in stool, Yes acid reflux, Yes hemorrhoids, Yes ulcers, Yes gallbladder problem, No black,tarry stools Festus Hematologic: No blood thinners, No blood disorders, No bleeding, No anemia, No blood clots Neuro Neurologic: No system reviewed and no additional complaints, except as docu, No as per HPI, No abnormal walking, No abnormal hearing, No abnormal movements, No abnormal speech, No behavioral changes, No burning sensations, No confusion, No seizure-like activity, No unsteadiness, No dizziness, No localized weakness, No frequent falls, No headache(s), No lack of coordination, No loss of vision, No memory loss, Yes numbness, No other visual disturbances, No radiating pain, No restless legs, No sensory deficit, No fainting, Yes tingling, No tremor(s), No weakness, No other Exam Const General: well developed, no acute distress, well hydrated Orientation: oriented to person, oriented to place, oriented to time [facility] Head: normocephalic, atraumatic Ears: external ears normal Mouth: moist mucous membranes Eyes Sclera: sclerae normal Pupils: normal by confrontation Neck Neck: no lymphadenopathy noted Neck mass: No Thyroid: symmetrical, thyroid normal Chest Chest palpation AND inspection: normal inspection of the chest Breast Palpation: No nipple discharge Resp Effort AND Inspection: normal respiratory effort Auscultation: clear to auscultation bilaterally Percussion: percussion normal Cardio Rate: regular rate Rhythm: regular rhythm Heart Sounds: no murmurs GI Palpation: soft, no masses, no hepatosplenomegaly, nontender Rectal Exam: other Other: Rectal exam deferred. Extrem General: no clubbing, cyanosis or edema, normal to inspection Assessment AND Plan Problems 1. Personal history of colonic polyps Z86.010 Plan I have discussed the above with the patient. I have offered the patient colonoscopy for evaluation. I have explained the risks/benefits of the procedure and described the procedure. I have discussed the risks with the patient, including but not limited to: infection, bleeding, perforation of the GI tract requiring emergency surgery, inability to complete the procedure, injury to any internal organs, complications of anesthesia, etc. - the patient understands and agrees to proceed. I have answered all the patient's questions to the patient's satisfaction and the patient has no further questions. The patient has been given instructions for the colon cleansing preparation. Coding Level of Care Code Off vis,new,level 3 Diagnoses Personal history of colonic polyps Z86.010 01/17/18 1441 <Electronically signed by Aldo Wheeler MD> Date Aldo Wheeler MD Cosigner Signature: Date (if applicable) CC: Go Davis DO SCREENING MAMM (CAD), Observed: 01/06/2018 Status: F Source: [place] BILAT 9:54 AM [facility] REPOSITORY [facility] Imaging Services [address] [place] [address] SCREENING MAMM (CAD), BILAT MR#: [id number] Acct: [id number] Name: BEENA ATWOOD Rep #: [id number] : 1950 F 67 From: Charlie Walker MD PCP: Go Davis DO Status: REG CLI Study: SCREENING MAMM (CAD), BILAT Date of Exam: 01/06/18 Exam# [id number] Ordering Dr: Go Davis DO MAMMOGRAPHY - BILATERAL SCREENING REASON FOR EXAM: Female, 67 years old. Routine annual screening examination. PERTINENT HISTORY: Personal history of breast cancer. Prior left lumpectomy. Mother with breast cancer. TECHNIQUE: Digital bilateral breast bal (3D mammographic acquisition) in the CC and MLO projections. 2-D mediolateral oblique (MLO) and craniocaudad (CC) views of both breasts were obtained. CAD: Full Field Digital Mammography with Computer Added Detection was performed. COMPARISON: Comparison is made with prior study dated January 05, 2017 and November 04, 2015. FINDINGS: Breast Composition: There are scattered areas of fibroglandular density. There are no dominant masses or suspicious calcifications. Stable appearance of a 4.5 mm x 4.5 mm nodular density in the upper lateral aspect of the left breast. No other significant abnormalities are identified. There has been no significant change since the prior study. BI/SCREENING MAMM (CAD), BILAT IMPRESSION: Stable bilateral screening mammogram. Yearly follow-up mammogram recommended. (A) ASSESSMENT CATEGORY: BIRADS Category 2: Benign. A letter regarding these results will be sent to the patient by the facility within 30 days. Approximately 10% of breast cancers are not detected by mammography. A normal mammogram should not delay biopsy of a clinically suspicious abnormality. [id number] Electronically Signed: Cahrlie Walker MD at 12:37 EDT Tel [phone], Service support , CC: Go Davis DO Reversing Mill Roller: Signed LIPID PROFILE Collected: 09/19/2017 Status: F Source: [place] 11:21 AM [facility] REPOSITORY TYPE CODE TESTS RESULT OUT OF RANGE REFERENCE UNITS LAB L501.4900 200 mg/dL High CHOL 265 Result Comment: <200 mg/dL Desirable 200-240 mg/dL Borderline >240 mg/dL High Risk LAB L501.5000 mg/dL Normal TRIG 147 Result Comment: The drugs N-Acetylcysteine and Metamizole may falsely depress this assay. Serum Triglycerides Reference Interval Normal <150 mg/dL Borderline high 150 - 199 mg/dL High 200 - 499 mg/dL Very High > or = 500 mg/dL LAB L501.6400 mg/dL Normal HDL 75 Result Comment: The drugs N-Acetylcysteine and Metamizole may falsely depress this assay. Reference Range HDL <40 mg/dL Low HDL Cholesterol HDL >or= 60 mg/dL High HDL Cholesterol LAB L501.6500 0-130 mg/dL High LDL 161 LAB L501.6600 5-40 mg/dL Normal VLDL 29 Performed By: #### L500.4100, L501.9520 #### [facility] [address] [place], [place], [address] THYROID STIM HORMONE Collected: 09/19/2017 Status: F Source: [place]LEXIS (TSH) 11:21 AM [facility] REPOSITORY TYPE CODE TESTS RESULT OUT OF RANGE REFERENCE UNITS LAB L501.9520 0.358-3.74 uIU/mL Normal TSH 1.85 Performed By: #### L500.4100, L501.9520 #### [facility] [address] [place], [address] OPERATIVE REPORT Observed: 09/13/2017 Status: F Source: [place] 9:42 AM [facility] REPOSITORY [facility] Medical Records Department [address] [place] [address] Operative Report 09/13/17 0649 MR#: [id number] Acct: [id number] Name: BEENA ATWOOD Rep #: [id number] : 1950 66 From: Jelani Albrecht MD PCP: Go Davis DO Status: [facility] Y Location: [facility] Report of Operation Date of Procedure: 09/13/17 Pre-Operative Diagnosis: 1. Left carpal tunnel syndrome. 2. Right carpal tunnel syndrome Post-Operative Diagnosis: 1. Left carpal tunnel syndrome. 2. Right carpal tunnel syndrome Surgery/Procedure Performed:: 1. Left carpal tunnel release. 2. Right carpal tunnel injection Description of Surgical Findings:: complete release TCL on left harpoon engagement planning operator: None Type of Anesthesia:: BlockLidia Anesthesiologist: Michael Orellana Special Medications: Ancef Specimen's removed: None Estimated Blood Loss (mL): 1 Fluids Replaced: 300 ml crystalloid Description of Procedure: Brief history operative indications: 66-year-old female with bilateral carpal tunnel syndrome left worse than right patient wished to proceed with left open carpal tunnel release and right carpal tunnel injection. After discussing risks and benefits including but not limited to blood loss, DVTs, PEs, neurovascular damage, infection, hematoma and general risk of anesthesia, the patient demonstrated understanding wish to proceed with left open carpal tunnel release Procedure: On the date of the procedure, the patient's left and right upper extremities were marked in the preoperative area. Patient was taken back to the operating room, where the tourniquet was placed on the right upper extremity. Patient was given light sedation. All bony prominences are identified well-padded. Anesthesia assumed control C- spine and airway and remained in control throughout the remainder the procedure. After patient was appropriately sedated the Right wrist was prepped in a sterile fashion. On the volar aspect of the wrist at the proximal wrist crease a 22-gauge needle was used to base 2 mL of 1% lidocaine and 1 mL of betamethasone performing the corticosteroid injection in the right wrist. At this time our attention was then directed back towards the left wrist where a Lidia block was administered by anesthesia. The left upper extremity was prepped in sterile fashion. Surgeon then scrub. Upon reentering the room, the left upper extremity was prepped in a standard orthopedic fashion. A timeout was called and everyone agreed upon the side, the site, the procedure to be performed, patient identity and antibiotics given. The incision was marked out. Incision was taken at the skin subtenons tissue fat down to fascia. Fascia was then lightly tethered until the median nerve was visible. A Quincy was placed proximally and distally, and then scissors were placed proximally and distally to release the transverse carpal ligament. During the release the others were never completely closed. The Quincy was then placed proximally and distally once more to verify the transverse carpal ligament had been adequately released. The wound was then copiously irrigated out with normal saline. Wound was then closed using 3-0 nylon suture. [] cc of 50-50 mixture of 1% lidocaine and 0.5% Sensorcaine without epinephrine injection was given. Xeroform dressing was placed, sterile dressing was placed, compressive dressing was placed. Tourniquet was let down. Volar splint was placed. Patient was awakened by anesthesia and transferred to the PACU for recovery. Postoperative plan: The patient will follow up in 2 weeks for removal splint removal sutures. At that time if they are doing well they will follow-up as needed. - Complications None - Admit VTE Documentation VTE Present on Admission: No VTE Mechan Device Prophylaxis: SCD's, Thigh High TEE Hose VTE Pharm Prophylaxis ordered?: No Reason prophylaxis not ordered:: Treatment Not Indicated 09/13/17 0942 <Electronically signed by Jelani Albrecht MD> Date Jelani Albrecht MD CC: Christopher Biggs DO; Go Davis DO; Jelani Albrecht MD Signed HISTORY AND PHYSICAL Observed: 09/09/2017 Status: F Source: [place] EXAM 4:29 PM [facility] REPOSITORY [facility] Medical Records Department [address] [place] [address] History and Physical 09/09/17 1623 MR#: [id number] Acct: [id number] Name: BEENA ATWOOD Rep #: [id number] : 1950 66 From: Travis Lai PA-C PCP: Go Davis DO Status: PRE SDC Y Location: [facility] History and Physical DATE OF SURGERY: 09/13/2017 SCHEDULED PROCEDURE: Left carpal tunnel release, corticosteriod injection right carpal tunnel HISTORY OF PRESENT ILLNESS: This is a 66-year-old female who is been having ongoing bilateral hand pain for several years. Patient states the left is worse than the right. Patient complains of constant pain. It can reach as high as a 10 out of 10. Patient states she has numbness and tingling in all fingers of both hands. The pain does awaken her at night. She has increased pain with activities of daily living including driving gripping grasping objects. She has undergone an EMG nerve conduction study exam which does show bilateral carpal tunnel syndrome. After discussion with Dr. Pascual Albrecht, the patient would like to proceed with a left carpal tunnel release and corticosteroid injection into the right carpal tunnel. Patient currently denies any chest pain, shortness breath, fevers chills, or recent infections. Patient does have a medical history pertinent for hypercholesterolemia, irritable bowel syndrome and previous breast cancer. REVIEW OF SYSTEMS: ROS: Const: Denies anorexia, anxiety, change in appetite, fever and weight change,hard of hearing, and vision problems. Eyes: Wears contact lenses. ENMT: Reports hearing loss. CV: Denies chest pain, heart murmur, irregular heartbeat and peripheral vascular disease. Resp: Reports asthma (ALLERY INDUCED) but denies cough, pneumonia, sleep apnea, SOB, tuberculosis and wheezing GI: Reports constipation, diarrhea, dysphagia, heartburn, nausea and vomiting, but denies bloody stools, and difficulty swallowing. : Genital:. (F Genital Sx) Urinary: denies incontinence. Musculo: Denies leg swelling, trouble walking and weakness and limp. Skin: Denies Raynaud's, history of shingles and tattoo. Neuro: Reports difficulty with balance, numbness/tingling and vertigo but denies ambulatory dysfunction, dizziness and tremor. Psych: Reports insomnia at times, and stress, but denies anxiety, depression and mental illness Festus/Lymph: Reports bleeding/bruising tendency and past transfusion, but denies anemia. Reviewed, no changes. PAST MEDICAL HISTORY: Advance Care Plan: Other Directive, LIVING WILL Effective Date: 07/28/2016 Other Directive, POA Effective Date: 07/28/2016 PMH: Medical Problems: Cancer - breast - lumpectomy Hypercholesterolemia, IBS Accidents: Fracture - rt foot Other - concussion, stitches over l eye, nerve damage rt foot Surgical Hx: Foot - (1998) RT Hysterectomy - (1989) Tonsillectomy - (1962) Tubal Ligation - (1979) Rhinoplasty - 1975,1985 Lumpectomy - (2002) RT TKR - (07/28/2015) Spinal Fusions - X2 RT Knee Arthroscopy - (02/06/2015) Section - X3 RT TKR Revision - (08/25/2016) SAW@[facility] Anesthesia Complications: Nausea, Vomiting Assistive Devices: Glasses, Contacts - RT EYE Reviewed and updated. SOCIAL HISTORY: SH: Marital: .Occupation: Retired.Work Status: Retired.Hand Dominance: Right-handed. Personal Habits: Cigarette Use: Never.Alcohol: Occasionally.Drug Use: Denies Use.Enjoy Exercising: Exercises 1-3 X/Week. Reviewed and updated. VITALS: Ht: 64.5 Wt: 165lb Wt k.844 BMI: 27.9 BP: 142/86 Pulse: 68 Resp: 16 T: 97.7 T: 36.5C ALLERGIES: Cholesterol Unknown Statins Latex - Topical Reaction Pain Killers Unknown Iodine - Rash MEDICATIONS: Tramadol HCL 50 mg 1-2 by mouth every 6 hours as needed pain, Omeprazole 20 mg 1 cap PO bid, Montelukast Sodium 10 mg 1 by mouth every day, Azelastine HCL (Nasal) 0.1 % two sprays qhs, Fluticasone Propionate 50 mcg/Act uad, Vitamin D3 2000 Unit 1 by mouth every day, Calcium 500 mg 1 tab by mouth three times a day, Vitamin B6 1 tab PO tid, Zinc 1 tab PO tid, Alavert 10 mg 1 daily PRE-OP EXAM: General appearance:NORMAL Other: Eyes: Conjunctivae and lids: NORMAL Pupils: ERR Ears, Nose, Mouth, and Throat: NORMAL Other: Inspection of lips, teeth and gums: NORMAL Other: Neck: Examination of neck: no masses noted. Respiratory: Assessment of respiratory effort: NORMAL Other: Ausculation of lungs: clear to ausculation no wheeses, ronchi or rales. Cardiovascular: Ausculation of heart: regular rate and rhythem, no mummurs, gallops or rubs. Exam of carotid arteries: NORMAL Other: Gastrointestinal: Exam of abdomen: soft, nontender, nondistended bowel sounds present. PHYSICAL EXAMINATION: No appreciable atrophy bilaterally. Patient has full composite fist bilaterally full extension of fingers. She has good range of motion of bilateral wrists. She has decreased thumb strength on the left when compared to the right. Two-point discrimination is 5 mm throughout the right hand and 7 mm in the left thumb, 5 mm and the remainder of the digits on the left. IMAGING STUDIES: EMG nerve conduction study exam was obtained on August 01, 2017 which does show moderate carpal tunnel syndrome bilaterally. IMPRESSION: 1. Bilateral carpal tunnel syndrome 2. Hypercholesterolemia 3. Irritable bowel syndrome 4. Previous history of breast cancer with lumpectomy PLAN: Dr. Albrecht did discuss and review with the patient all treatment options including surgical versus nonsurgical. Patient wishes to proceed with above- stated procedure. Potential risks, benefits, and complications of this procedure were discussed in detail including but not limited to , infection, nerve and blood vessel damage, persistent pain, numbness, tingling, paresthesias, blood clot, pulmonary embolism, and requirement for further surgery. The patient expressed full understanding has no further questions for the doctor. Patient does agree to proceed with the above-stated procedure and has signed the surgery consent form. ___ I have re-examined the patient. There are no clinical changes since date of exam. ___ See progress notes for changes. ___ Dictated on admission Date: Time: Signature: 09/09/17 1629 <Electronically signed by Travis Lai PA-C> Date Travis Lai PA-C Cosigner Signature: Date (if applicable) CC: Go Davis DO; Travis JESUS Signed NCS AND/OR EMG Observed: 07/20/2017 Status: F Source: [place] PATIENT 3:18 PM [facility] REPOSITORY [facility] Pulmonary Services/Neurology [address] [place] [address] MR#: [id number] Acct: [id number] Name: BEENA ATWOOD Rep #: [id number] : 1950 66 From: Dottie Key MD Referring Dr: Go Davis DO Status: REG CLI Ordering Dr: Date: Location: [facility] Sex: F C NCS and/or EMG Patient Report Ordering Doctor: Go Davis DATE OF SERVICE: 07/20/17 Beena Atwood is a 66-year-old female presents to chief complaint of numbness and tingling in both hands. Symptoms are worse on the left side. Electrodiagnostic findings: Median motor nerve demonstrates prolonged distal latency with normal amplitude and borderline reduced conduction velocity bilaterally. Normal left and right ulnar motor response bilaterally. Normal median ulnar F waves. Prolonged median sensory distal latency is noted bilaterally. On needle EMG, all muscles tested in the upper limbs show no evidence of denervation with normal motor unit action potentials Electrodiagnostic Impression: This is an abnormal study 1) Findings demonstrate bilateral median mononeuropathy. This is consistent with a moderate bilateral carpal tunnel syndrome If there are any further questions in regards to this exam, please do not hesitate to contact me 07/20/17 1518 <Electronically signed by Dottie Key MD> Date Dottie Key MD CC: Dottie Key; Go Davis DO Date Dictated: 07/20/171350 Date Transcribed: 07/20/171350 Reversing Mill Roller: EMILE Signed ALLERGIES ALLERGIES DATE TYPE / CODE NAME / CODE REACTION SEVERITY SOURCE 03/08/2018 Drug hydrocodone/F00 Nausea Unknown [place] Allergy/609999657(S 3883051(RXNORM) [facility] 03/08/2018 Drug oxycodone/F0060 UTACARIA Unknown [place] Allergy/899911463(S 74384(RXNORM) [facility] NOMED CT) Hospital Repository 03/08/2018 Drug acetaminophen/F Nausea Unknown [place] Allergy/921083412(S 267687836(RXNOR [facility] Repository 03/08/2018 Drug pravastatin/F00 MUSCLE CRAMPS Unknown [place] Allergy/011921897(S 2395280(RXNORM) [facility] 03/08/2018 Drug atorvastatin/F0 MUSCLE CRAMPS Unknown [place] Allergy/939926342(S 48091227(RXNORM [facility] Repository 03/08/2018 Drug latex/[id number] Rash Unknown Alexis Allergy/613973674(S 1(RXNORM) [facility] NOMED CT) Hospital Repository 01/12/2018 Miscellaneous shellfish Rash/Hives MO Alex[place] Allergy/903782960(S [facility] NOMED CT) Hospital Repository ENCOUNTERS ENCOUNTERS ADMIT/DISCHARGE ACCOUNT ADMITTING ENCOUNTER LOCATION SOURCE NUMBER CLASS 07/08/2018 [id number] Ambulatory Agra Agra 5 [facility] ing:US Repository 07/03/2018 [id number] Ambulatory Alexis Alexis 0 [facility] ing:BFAB Repository 04/05/2018 [id number] Ambulatory Agra Alexis 3 [facility] ing:BFHLAB Repository 03/13/2018/ [id number] Ambulatory Alexis Alexis 8 9 [facility] ing:EN Repository 03/13/2018/ [id number] Ambulatory BMSBuilding:B Agra 8 2 [facility] Repository 01/12/2018/ [id number] Ambulatory BMSBuilding:B Alexis 8 5 [facility] Repository 01/06/2018 [id number] Ambulatory Agra Agra 6 [facility] ing:OPBI Repository 09/19/2017 [id number] Ambulatory Alexis Alexis 0 [facility] ing:BFHLAB Repository 09/13/2017/ [id number] Ambulatory Agra Agra 8 9 [facility] ing:SDCRoom: Repository AC03 07/20/2017 [id number] Ambulatory Agra Agra 6 [facility] ing:PSN Repository PAYERS PAYERS ENCOUNTER GUARANTOR PAYER SUBSCRIBER SOURCE 07/08/2018 BEENA Edwards Primary BEENA [id number] Insurance:AETNA KEELYDOB: [facility] Number: [id number] [facility] CenterBNZN9LEffective Repository [address]Gmn: 330) Date:7118-03-14[phone] () [id number] AGATHA SEGUNDO [address]BE: 07/08/2018 Secondary NOT GIVENUNK Agra Insurance:SELF PAY [facility] Number: Effective Repository Date:2018-07-04 07/03/2018 BEENA Edwards Primary BEENA [id number] Insurance:AETNA KEELYDOB: [facility] Number: [id number] Medical CenterBNZN9LEffective Repository [address]Paf: [phone]) Date:9741-23-17HX [phone] () [id number] [place] [address]TL: 07/03/2018 Secondary NOT GIVENUNK Agra Insurance:SELF PAY [facility] Number: Effective Repository Date:2018-07-03 04/05/2018 ANDRE Whiteside Primary BEENA [id number] Insurance:AETNA HERRMANNDOB[facility] Number: [id number] [id number] Repository [address]Ous: ([phone]) Date:8536-67-32WJ [phone] (HP) 317335MDAGATHA NOBLES [address]SH: 04/05/2018 Secondary NOT GIVENUNK Agra Insurance:SELF PAY [facility] Number: Effective Repository Date:2018-04-05 03/13/2018 ANDRE S Primary BEENA J Agra [id number] Insurance:AETNA HERRMANNDOB: [facility]: [id number], [place] [id number] Repository [address]Mxi: ([phone]) Date:7174-15-33GP [phone] (HP) [id number] AGATHA SEGUNDO [address]DC: 03/13/2018 Secondary NOT GIVENUNK Agra Insurance:SELF PAY [facility] Number: Effective Repository Date:2018-02-15 03/13/2018 ANDRE S Primary BEENA J Alexis [id number] Insurance:AETNA HERRMANNDOB: [facility] Number: [id number], [place] [id number] Repository [address]Hmu: ([phone]) Date:1223-36-78RG [phone] (HP) [id number] [place] [address]GH: 03/13/2018 Secondary NOT GIVENUNK Alexis Insurance:SELF PAY [facility] Number: Effective Repository Date:2018-03-13 01/12/2018 ANDRE S Primary BEENA J Alexis [id number] Insurance:AETNA HERRMANNDOB: [facility] Number: [id number], [place] [id number] Repository [address]Bya: ([phone]) Date:7762-38-90SF [phone] (HP) [id number] [place] [address]RR: 01/12/2018 Secondary NOT GIVENUNK Agra Insurance:SELF PAY [facility] Number: Effective Repository Date:2018-01-12 01/06/2018 ANDRE S Primary BEENA Espinoza [id number] Insurance:AETNA HERRMANNDOB: [facility]: [id number] Medical CenterBNZN9LEffective Repository [address]Daf: ([phone]) Date:6653-55-42IL [phone] (HP) [id number] [place] AGATHA [address]AK: 01/06/2018 Secondary NOT GIVENUNK Agra Insurance:SELF PAY [facility] Number: Effective Repository Date:2017-12-22 09/19/2017 ANDRE S Primary BEENA Espinoza [id number] Insurance:AETNA HERRMANNDOB: [facility] Number: [id number] Medical CenterBNZN9LEffective Repository [address]Aex: ([phone]) Date:7659-92-08PJ [phone] (HP) [id number] NOBLES [address]UZ: 09/19/2017 Secondary NOT GIVENUNK Alexis Insurance:SELF PAY [facility] Number: Effective Repository Date:2017-09-19 09/13/2017 ANDRE S Primary BEENA Espinoza [id number] Insurance:AETNA HERRMANNDOB: [facility] Number: [id number], [place] [id number] Repository [address]Cnc: ([phone]) Date:3904-06-80NZ [phone] (HP) [id number] BLAIREStephenie AGATHA [address]IW: 09/13/2017 Secondary NOT GIVENUNK Alexis Insurance:SELF PAY [facility] Number: Effective Repository Date:2017-09-01 07/20/2017 ANDRE S Primary BEENA Espinoza [id number] Insurance:AETNA HERRMANNDOB: [facility] Number: [id number], [place] [id number] Repository [address]Wch: [phone]) Date:9047-27-39VO [phone] (TI) [id number] AGATHA SEGUNDO [address]SC: 07/20/2017 Secondary NOT GIVENUNK Agra Insurance:SELF PAY [facility] Number: Effective Repository Date:2017-05-18
== END ==
PROVIDERS: Family Provider Family Medicine; PCP Family Medicine; Referring Provider Family Medicine; Visit Provider Family Medicine
DX: R10.9 Unspecified abdominal pain (principal)
CPT/HCPCS: 76700

== ENCOUNTER → 2018-07-31 14:01 | Outpatient (CLI) | payer MEDICARE, SELFPAY ==
--- NOTE | 2018-07-31 14:04 | CT_ITS ---
STUDY: CT ABDOMEN WITH AND WITHOUT CONTRAST REASON FOR EXAM: Female, 67 years old. Abnormal ultrasound left kidney RADIATION DOSAGE (If Supplied By Facility): CTDIvol = ( 21.69 ) mGy, DLP = ( 2734.12 ) mGycm TECHNIQUE: Transaxial images were obtained pre and post I.V. administration of 100 ml of Isovue 300, and oral contrast. Sagittal and coronal images were reconstructed. Individualized dose optimization techniques were used for this CT. COMPARISON: Ultrasound kidneys July 08, 2018 FINDINGS: The visualized lung bases are unremarkable. The visualized portions of the heart are within normal limits. There is hepatomegaly with diffuse hepatic enlargement. Normal gallbladder and extrahepatic biliary system. Normal spleen. Normal pancreas. Normal bilateral adrenal glands. Normal right kidney. In the lower pole of the left kidney image #36 there is a nonenhancing low attenuating density mass almost too small to characterize. Measuring 3.7 mm the density is most suggestive of a small fatty density or myolipoma. Within the lower pole there is a trace focus of distended calyx or small peripelvic cyst that measures 6.8 mm. There is a minimal hiatal hernia. Normal small intestine. There is partially visualized colon which appears moderately distended with stool. The appendix is visualized and appears normal. The aorta is tortuous and minimally calcified. Normal inferior vena cava. Normal retroperitoneum. Normal abdominal wall. There is a spinal fusion from the level of L2 to the sacrum. There is a blunted appearance of the posterior elements. There are disc spacers at L4-L5 L5-S1. CT/Abdomen W/WO IV Contrast IMPRESSION: 3.7 mm hypodense nodule within the left kidney which most likely represents a small focus of fat or potentially benign myolipoma. 6.8 mm small left peripelvic cyst. Lumbar spine fusion. Hepatic steatosis. Electronically Signed: Aneta Godoy MD at 15:36 EST Tel , Service support ,
== END ==
PROVIDERS: Family Provider Family Medicine; PCP Family Medicine; Referring Provider Family Medicine; Visit Provider Family Medicine
DX: D49.512 Neoplasm of unspecified behavior of left kidney (principal)
CPT/HCPCS: 74170; Q9967

== ENCOUNTER → 2019-01-09 | Outpatient (CLI) | payer MEDICARE, SELFPAY ==
--- NOTE | 2019-01-09 10:24 | BI_ITS ---
MAMMOGRAPHY - BILATERAL SCREENING 3-D TOMOSYNTHESIS REASON FOR EXAM: Female, 68 years old. Bilateral Screening 3-D tomosynthesis PERTINENT HISTORY: No significant family history. TECHNIQUE: 2-D mammograms and 3-D Tomosynthesis of the breast (s) were performed. CAD was performed. COMPARISON: 01/06/2018 FINDINGS: The breast composition is almost entirely fat. Scattered benign calcifications are seen. No dense spiculated masses or suspicious microcalcifications are identified. No architectural distortion is identified. There is no skin thickening or retraction. Stable 4.5 x 4.5 mm nodular density in the left breast There has been no significant change since the prior study. BI/SCREEN MAMM (CAD) W/MAURICE BILAT IMPRESSION: No mammographic signs of malignancy. Routine yearly mammograms recommended. ASSESSMENT CATEGORY: BIRADS Category 2: Benign. A letter regarding these results will be sent to the patient by the facility within 30 days. FOLLOW UP RECOMMENDATION: Yearly follow up mammogram recommended. (A) Approximately 10% of breast cancers are not detected by mammography. A normal mammogram should not delay biopsy of a clinically suspicious abnormality. Electronically Signed: Reji Baeza MD at 11:45 EDT , Service support ,
== END | disposition home or self-care (01) ==
LOC: OPBI 10:22
PROVIDERS: Family Provider Family Medicine; PCP Family Medicine; Referring Provider Family Medicine; Visit Provider Family Medicine
DX: Z12.31 Encounter for screening mammogram for malignant neoplasm of breast (principal)
CPT/HCPCS: 77063; 77067

== ENCOUNTER → 2019-06-05 16:34 | Outpatient (CLI) | payer MEDICARE, SELFPAY ==
[2018-03-13 06:27] VITALS: BMI 26.5
== END ==
PROVIDERS: Family Provider Family Medicine; PCP Family Medicine; Referring Provider Otolaryngology; Visit Provider Otolaryngology
DX: H66.40 Suppurative otitis media, unspecified, unspecified ear (principal)
CPT/HCPCS: 87070; 87077; 87186; 87205

== ENCOUNTER → 2019-07-04 11:27 | Outpatient (CLI) | payer MEDICARE, SELFPAY ==
[2018-03-13 06:27] VITALS: BMI 26.5
[2019-07-04 15:44] LABS: Absolute Lymphocyte Count 1.89 X10^3/uL (0.83-4.51); Absolute Neutrophil Count 4.7 X10^3/uL (2.0-7.7); Basophil# 0.05 X10^3/uL; Basophil% 0.7 % (0-1); Eosinophil# 0.09 X10^3/uL; Eosinophils% 1.2 % (0-5); Hematocrit 40.9 % (37-47); Hemoglobin 13.4 g/dL (12.0-15.0); Lymphocyte # 1.89 X10^3/ul (4.0); Lymphocyte % 25.7 % (19-41); Mean Corp Hgb Conc 32.8 g/dL (32-36); Mean Corpuscular Hgb 31.9 pg (27.0-32.0); Mean Corpuscular Volume 97.4 fL (81-99); Mean Platelet Vol. 10.8 fl (6.2-12.0); Monocyte# 0.58 X10^3/uL; Monocyte% 7.9 % (0-10); NRBC Flagged by Analyzer 0 % (0-5); Neutrophil # 4.71 X10^3/uL (2.7-7.7); Neutrophil % 64.1 % (47-70); Platelet Count 259 K/mm3 (150-450); RBC Distribution Width CV 11.9 % (11.6-14.6); RBC Distribution Width SD 42.5 fl (35.1-43.9); White Blood Count 7.4 K/mm3 (4.4-11.0)
[2019-07-04 16:23] LABS: ALB/GLOB Ratio 1.1 RATIO (0.9-2.4); AST(SGOT) 22 U/L (15-37); Alanine Aminotransfer ALT/SGPT 41 U/L (13-56); Alkaline Phosphatase 79 U/L (45-117); Anion Gap 6 (5-15); BUN 12 mg/dL (7-18); BUN/Creat Ratio 15.1 RATIO (10-20); Calcium,Total 9.2 mg/dL (8.5-10.1); Chloride 106 mmol/L (98-107); Cholesterol 263 mg/dL (200); Creatinine, Serum 0.79 mg/dL (0.55-1.02); EST Glomerular Filtration Rate 76 mL/min (>60); Est Glom Filt Rate - Afr Amer 93 mL/min (>60); Globulin 3.6 g/dL (2.2-4.2); Glucose 90 mg/dL (74-106); High Density Lipoprotein 69 mg/dL; Potassium 3.7 mmol/L (3.5-5.1); Protein, Total 7.6 g/dL (6.4-8.2); Sodium Level 139 mmol/L (136-145); Triglycerides 132 mg/dL; Very Low Density Lipoprotein 26 mg/dL (5-40)
== END ==
PROVIDERS: Family Provider Family Medicine; PCP Family Medicine; Visit Provider Family Medicine
DX: K75.81 Nonalcoholic steatohepatitis (NASH) (principal); E78.5 Hyperlipidemia, unspecified; Z51.81 Encounter for therapeutic drug level monitoring
CPT/HCPCS: 36415; 80053; 80061; 85025

== ENCOUNTER → 2019-07-11 11:11 | Outpatient (CLI) | payer MEDICARE, SELFPAY ==
--- NOTE | 2019-07-11 11:17 | BD_ITS ---
STUDY: DUAL ENERGY X-RAY ABSORPTIOMETRY / DXA REASON FOR EXAM: Female, 68 years old. 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 COMPARISON: Comparison is made with prior study dated February 02, 2006. FINDINGS: Left Femur Total: g/cm2 (1.054) / T-score (0.4) / Z-score (1.8) Left Femoral Neck: g/cm2 (0.994) / T-score (-0.3) / Z-score (1.3) Right Femur Total: g/cm2 (0.972) / T-score (-0.3) / Z-score (1.1) Right Femoral Neck: g/cm2 (0.953) / T-score (-0.6) / Z-score (1.0) Left Forearm: g/cm2 (0.768) / T-score (-1.2) / Z-score (0.5) The T-Scores on the most recent prior examination were: Left Femur Total: which represents a worsening of 4.4%. Right Femur Total: which represents no significant change. . BD/Dexa Bone Density Study IMPRESSION: The patient is considered osteopenic as outlined below according to World Arie Organization (WHO) criteria with a low fracture risk. There has been worsening of bone density since the previous examination. Reference Information: The T-score is the number of standard deviations above or below the standard which is normal for young adults at their peak bone mineral density. The World Health Organization (WHO) interprets the T-scores as follows: Above -1 Normal bone density Between -1 and -2.5 Osteopenia Equal to / or below -2.5 Osteoporosis As a practical clinical guideline, osteopenia may be graded as follows: Mild -1 through -1.5 Moderate -1.6 through -2.0 Severe -2.1 through -2.4 The Z-score is the number of standard deviations above or below age-matched controls. A Z-score of less than -1.5 would be considered abnormal. References: 1. NIH Osteoporosis and Related Bone Diseases http://www.osteo.org 2. International Society for Clinical Densitometry http://www.iscd.org 3. National Osteoporosis Foundation http://www.nof.org Electronically Signed: Charlie Walker, at 9:56 EST , Service support ,
== END ==
PROVIDERS: PCP Family Medicine; Referring Provider Family Medicine; Visit Provider Family Medicine
DX: M81.0 Age-related osteoporosis without current pathological fracture (principal)
CPT/HCPCS: 77080

== ENCOUNTER → 2020-01-11 15:00 | Outpatient (CLI) | payer MEDICARE, SELFPAY ==
--- NOTE | 2020-01-11 15:02 | BI_ITS ---
MAMMOGRAPHY - BILATERAL SCREENING 3-D TOMOSYNTHESIS REASON FOR EXAM: Female, 69 years old. BILAT SCREENING - PERSONAL HX @ AGE 52 WITH LT LUMPECTOMY WITH NO F/U TX - BILAT MOLES MARKED - FAM HX OF MOTHER @ AGE 76 and amp;amp; MAT COUSIN @ AGE 50''S PERTINENT HISTORY: No significant family history. TECHNIQUE: 2-D mammograms and 3-D Tomosynthesis of the breast (s) were performed. CAD was performed. COMPARISON: 01/09/2019 FINDINGS: The breast composition is composed of scattered fibroglandular density. Scattered benign calcifications are seen. No dense spiculated masses or suspicious microcalcifications are identified. No architectural distortion is identified. There is no skin thickening or retraction. Stable 4.5 mm nodular density in the left breast. Stable 4 mm nodular density in the right breast. There has been no significant change since the prior study. BI/SCREEN MAMM (CAD) W/MAURICE BILAT IMPRESSION: No mammographic signs of malignancy. Routine yearly mammograms recommended. ASSESSMENT CATEGORY: BIRADS Category 2: Benign. A letter regarding these results will be sent to the patient by the facility within 30 days. FOLLOW UP RECOMMENDATION: Yearly follow up mammogram recommended. (A) Approximately 10% of breast cancers are not detected by mammography. A normal mammogram should not delay biopsy of a clinically suspicious abnormality. Electronically Signed: Reji Baeza MD at 21:09 EDT , Service support ,
== END ==
PROVIDERS: PCP Family Medicine; Referring Provider Family Medicine; Visit Provider Family Medicine
DX: Z12.31 Encounter for screening mammogram for malignant neoplasm of breast (principal)
CPT/HCPCS: 77063; 77067

== ENCOUNTER → 2020-02-11 09:43 | Outpatient (CLI) | payer MEDICARE, SELFPAY ==
[2018-03-13 06:27] VITALS: BMI 26.5
[2020-02-11 10:08] LABS: Erythrocyte Sedimentation Rate 11 mm/hr (0-30)
[2020-02-11 10:10] LABS: Absolute Lymphocyte Count 1.47 X10^3/uL (0.83-4.51); Absolute Neutrophil Count 5.5 X10^3/uL (2.0-7.7); Basophil# 0.04 X10^3/uL; Basophil% 0.5 % (0-1); Eosinophil# 0.09 X10^3/uL; Eosinophils% 1.2 % (0-5); Hematocrit 40.3 % (37-47); Hemoglobin 13.5 g/dL (12.0-15.0); Lymphocyte # 1.47 X10^3/ul (4.0); Lymphocyte % 18.8 % (19-41); Mean Corp Hgb Conc 33.5 g/dL (32-36); Mean Corpuscular Hgb 33.3 pg (27.0-32.0); Mean Corpuscular Volume 99.3 fL (81-99); Mean Platelet Vol. 10.5 fl (6.2-12.0); Monocyte# 0.72 X10^3/uL; Monocyte% 9.2 % (0-10); NRBC Flagged by Analyzer 0 % (0-5); Neutrophil # 5.46 X10^3/uL (2.7-7.7); Neutrophil % 69.9 % (47-70); Platelet Count 245 K/mm3 (150-450); RBC Distribution Width CV 11.9 % (11.6-14.6); RBC Distribution Width SD 42.9 fl (35.1-43.9); Red Blood Count 4.06 M/mm3 (4.2-5.4); White Blood Count 7.8 K/mm3 (4.4-11.0)
[2020-02-11 10:43] LABS: CRP 3.31 mg/L (0.0-3.0)
== END ==
PROVIDERS: PCP Family Medicine; Referring Provider Specialist; Visit Provider Specialist
DX: Z96.651 Presence of right artificial knee joint (principal)
CPT/HCPCS: 36415; 85025; 85652; 86140

== ENCOUNTER → 2020-03-17 09:06 | Outpatient (CLI) | payer MEDICARE, SELFPAY | PROVIDERS: PCP Family Medicine; Visit Provider Physician Assistant Surgical | DX: Z01.812 Encounter for preprocedural laboratory examination (principal) | CPT/HCPCS: 87081 ==

== ENCOUNTER 2020-04-02 09:53 | Inpatient (IN) | payer MEDICARE, SELFPAY ==
[2018-03-13 06:27] VITALS: BMI 26.5
--- NOTE | 2020-03-18 14:57 | HP.PCM_ITS ---
History and Physical History and Physical [facility] Patient Name: Keyla Atwood : 1950 From: EROS HERNANDEZ PA-C DATE OF SURGERY: 04/02/2020 SCHEDULED PROCEDURE: revision right total knee arthroplasty HISTORY OF PRESENT ILLNESS: Preoperative history and physical exam was performed on March 17, 2020. This is a 69-year-old female who has continued to have ongoing pain in her right knee. Patient initially underwent a previous right total knee arthroplasty in 2016 at an outside institution. She had persistent patellofemoral pain and c lunking with periodic swelling and difficulty with stairs. She had laxity on exam at that time. Patient underwent a revision with polyethylene exchange and patella revision. This procedure was done on August 25, 2016.. She continues to have progressive pain and swelling. Bone scan was consistent with loosening of the total knee. Patient currently denies any chest pain, shortness of breath, fevers chills, or recent infections. Patient has a medical history pertinent for previous breast cancer lumpectomy, hypercholesterolemia, irritable bowel syndrome. Patient has had a previous right knee arthroscopy in 2015 as well. After failing conservative measures and discussing treatment options with Dr. Jelani Albrecht, the patient does wish to proceed with a revision right total knee arthroplasty. We are obtaining surgical clearance from the primary care physician. Patient also reports having allergies to pain medications which make her very sick. She states she is able to tolerate them for a few days and then she has significant nausea and vomiting. She is also having the similar symptoms a Tylenol and nonsteroidal anti-inflammatories. REVIEW OF SYSTEMS: ROS: Const: Denies anorexia, anxiety, change in appetite, fever and weight change,hard of hearing, and vision problems. Eyes: Wears contact lenses. ENMT: Reports hearing loss. CV: Denies chest pain, heart murmur, irregular heartbeat and peripheral vascular disease. Resp: Reports asthma (ALLERY INDUCED) but denies cough, pneumonia, sleep apnea, SOB, tuberculosis and wheezing GI: Reports constipation, diarrhea, dysphagia, heartburn, nausea and vomiting, but denies bloody stools, and difficulty swallowing. : Urinary: denies incontinence. Musculo: Denies leg swelling, trouble walking and weakness and limp. Skin: Denies Raynaud's, history of shingles and tattoo. Neuro: Reports difficulty with balance, numbness/tingling and vertigo but denies ambulatory dysfunction, dizziness and tremor. Psych: Reports insomnia at times, and stress, but denies anxiety, depression and mental illness Festus/Lymph: Reports bleeding/bruising tendency and past transfusion, but denies anemia. Reviewed, no changes. PAST MEDICAL HISTORY: Advance Care Plan: Other Directive, LIVING WILL Effective Date: 07/28/2016 Other Directive, POA Effective Date: 07/28/2016 PMH: Medical Problems: Cancer - breast - lumpectomy Hypercholesterolemia, IBS Accidents: Fracture - rt foot Other - concussion, stitches over l eye, nerve damage rt foot Surgical Hx: Foot - (1998) RT LT CTR - (09/13/2017) [facility] @ [facility] Hysterectomy - (1989) Tonsillectomy - (1962) Tubal Ligation - (1979) Rhinoplasty - 1975,1985 Lumpectomy - (2002) RT TKR - (07/28/2015) Spinal Fusions - X2 RT Knee Arthroscopy - (02/06/2015) Section - X3 RT TKR Revision - (08/25/2016) [email or web address] Anesthesia Complications: None Assistive Devices: Glasses, Contacts - RT EYE Reviewed and updated. SOCIAL HISTORY: SH: Marital: .Occupation: Retired.Work Status: Retired.Hand Dominance: Right-handed. Personal Habits: Cigarette Use: Never.Alcohol: Occasionally.Drug Use: Denies Use.Enjoy Exercising: Exercises 1-3 X/Week. Reviewed, no changes. VITALS: Ht: 64 Wt: 164lb Wt k.390 BMI: 28.1 BP: 124/70 Pulse: 76 Resp: 16 T: 97.1 T: 36.2C ALLERGIES: Cholesterol Unknown Statins Latex - Topical Reaction Pain Killers Unknown Iodine - Rash Codeine MEDICATIONS: Fluticasone Propionate 50 mcg/Act uad, Vitamin D3 2000 Unit 1 by mouth every day, Alavert 10 mg 1 daily, Creon 4466-1852 Unit 1 capsule by mouth 3 times A day with meals, Proair HFA 108 (90 Base) mcg/Act prn PRE-OP EXAM: General appearance:NORMAL Other: Eyes: Conjunctivae and lids: NORMAL Pupils: ERR Ears, Nose, Mouth, and Throat: NORMAL Other: Inspection of lips, teeth and gums: NORMAL Other: Neck: Examination of neck: no masses noted. Respiratory: Assessment of respiratory effort: NORMAL Other: Auscultation of lungs: clear to auscultation no wheezes, rhonchi or rales. Cardiovascular: Auscultation of heart: regular rate and rhythm, no murmurs, gallops or rubs. Exam of carotid arteries: NORMAL Other: Gastrointestinal: Exam of abdomen: soft, nontender, nondistended bowel sounds present. PHYSICAL EXAMINATION: Previous incision on the right knee as well healed with no erythema or signs of infection. She has mild tenderness to palpation over the pes anserine bursa. On exam stable to varus and valgus stress tests, stable anterior/posterior drawer. Sensation intact to light touch. IMAGING STUDIES: Bone scan of the right knee was consistent with loosening of the right total k nee arthroplasty. Previous x-ray of the right knee also has concerns for position of the femoral component which appears to be a greater valgus consistent with subsidence of the lateral side. In addition on the lateral view there appears to be increased flexion of the implant. IMPRESSION: 1. Painful right total knee arthroplasty 2. Hypercholesterolemia 3. Irritable bowel syndrome 4. History of breast cancer lumpectomy PLAN: Dr. Jelani Albrecht did discuss and review with the patient all treatment options including surgical versus nonsurgical options. Patient does wish to proceed with the above-stated procedure. Potential risks, benefits, and complications of the procedure were discussed in detail including but not limited to , infection, nerve and blood vessel damage, persistent pain, numbness, tingling, paresthesias, blood clot, pulmonary embolism, and requirement for possible further surgery. The patient expressed full understanding and has no further questions for the doctor. Patient does agree to proceed with the above-stated procedure and has signed the surgery consent form. We discussed the current risks associated with COVID 19. This does include the risk of exposure while in the hospital. Patient was reassured local hospitals have low infection rates and are taking all necessary precautions to avoid exposure to patients. In addition, we discussed strategies that can be used to help limit exposure including those that limit the patient's time in the hospital. Also using strategies to limit the patient's need for continued inpatient services after being discharged from the hospital. Patient was notified that we will need to comply with any screening or testing the hospital wishes to perform or that surgery may be delayed for any positive results. This dictation was created using voice recognition software. Phonetic and/or grammatical errors may exist. ___ I have re-examined the patient. There are no clinical changes since date of exam. ___ See progress notes for changes. ___ Dictated on admission Date: Time: Signature:
--- NOTE | 2020-03-26 08:17 | EKG12_ITS ---
Test Reason : PREOP Blood Pressure : / mmHG Vent. Rate : 069 BPM Atrial Rate : 069 BPM P-R Int : 156 ms QRS Dur : 092 ms QT Int : 412 ms P-R-T Axes : 043 011 045 degrees QTc Int : 441 ms Normal sinus rhythm Normal ECG Confirmed by TELLY STOUT, ANDREA ([id number]), book or script editor MAYELIN MILLER ([id number]) on 03/27/2020 10:08:25 AM Referred By: ELIZABETH Confirmed By:ANDREA VARNER MD
[2020-03-26 09:45] LABS: Magnesium 2.1 mg/dL (1.6-2.6)
[2020-03-26 09:55] LABS: Anion Gap 4 (5-15); BUN 24 mg/dL (7-18); BUN/Creat Ratio 29.5 RATIO (10-20); Calcium,Total 9.4 mg/dL (8.5-10.1); Chloride 105 mmol/L (98-107); Creatinine, Serum 0.81 mg/dL (0.55-1.02); EST Glomerular Filtration Rate 74 mL/min (>60); Est Glom Filt Rate - Afr Amer 90 mL/min (>60); Glucose 86 mg/dL (74-106); Potassium 3.4 mmol/L (3.5-5.1); Sodium Level 138 mmol/L (136-145)
[2020-04-02] VITALS (8 sets, daily range): BP systolic 105–126; BP diastolic 57–73; PULSE 62–96; RESP 16–18; TEMP 36–37.1; O2SAT 94–100; BMI 27.1
[2020-04-02] MEDS: Scopolamine 1mg/72hr Patch 1 PATCH TRANSDERM. (11:03)
[2020-04-02] MEDS: Celecoxib 200 MG Capsule 400 MG PO (11:04)
[2020-04-02] MEDS: Gabapentin 600 MG Tablet PO (11:13)
[2020-04-02] MEDS: Lactated Ringers 1,000 ML 999 ML IV ×2 (11:16→15:20)
[2020-04-02 11:20] LABS: Bedside Glucose 104 mg/dL (70-110)
[2020-04-02] MEDS: Acetaminophen 500 MG Tablet 1000 MG PO (11:33)
[2020-04-02] MEDS: dexAMETHasone 10 MG/ML Vial IV (11:55)
[2020-04-02] MEDS: Cefazolin 2 GM in 0.9% Normal Saline 100 ML IV (11:55)
[2020-04-02] MEDS: Lactated Ringers 1,000 ML 75 ML IV (12:00)
[2020-04-02] MEDS: Lactated Ringers 1,000 ML 125 ML IV ×3 (12:00→21:13)
--- NOTE | 2020-04-02 14:15 | RAD_ITS ---
STUDY: X-RAY - RIGHT KNEE REASON FOR EXAM: Female, 69 years old. POST OP TECHNIQUE: AP and lateral view(s) of the knee. COMPARISON: Comparison is made with prior study dated 08/25/2016. FINDINGS: Normal visualized distal femur. Normal visualized proximal tibia and fibula. Normal proximal tibiofibular articulation. The patient is status post revision of the total knee replacement with the longstem femoral component. There is good alignment. Postoperative soft tissue changes. RAD/Knee 1 or 2 Views IMPRESSION: Status post revision of the total knee replacement. There is good alignment. Postoperative soft tissue changes. Electronically Signed: Charlie Walker, at 15:34 EDT , Service support ,
--- NOTE | 2020-04-02 14:17 | OP.PCM_ITS ---
Report of Operation Date of Procedure: 04/02/20 Pre-Operative Diagnosis: Painful right total knee replacement, aseptic loosening Post-Operative Diagnosis: Painful right total knee replacement, aseptic loosening Surgery/Procedure Performed:: Left revision total knee replacement entire tibia and femur. Description of Surgical Findings:: Stable knee with good patella tracking director of veterans affairs: Nickolas Lai Type of Anesthesia:: Spinal Anesthesiologist: Satish Fermin Special Medications: 2 g Ancef, 1 g TXA at incision, 1 g TXA closure, 10 mg Decadron, joint cocktail (5 mg Duramorph, 30 mL of 0.5% Ropivicaine, 1000 units of epinephrine, 30 mg of Toradol) Specimen's removed: 3 separate specimens were sent to microbiology Estimated Blood Loss (mL): 75 Fluids Replaced: 1200 mL crystalloid Description of Procedure: Implants used: Femur: Size 4 PS [place] distal femur with 5 mm augments medially and laterally distally and medially and laterally posteriorly. 15 x 100 mm stem Tibia: [place] universal tibial baseplate size 3 with 15 x 50 mm stem. Size A cone Poly: 19 mm TS Brief history operative indications: 69-year-old F with total knee replacement previously. Patient demonstrated progressive pain with studies consistent with aseptic loosening. After ruling out infection we agreed to proceed with revision total knee replacement which had risks which include but not limited to blood loss, DVTs, PEs, nervous damage, infection, the risk of anesthesia. Patient demonstrate understanding was able to sign informed consent. Medical clearance was obtained. Procedure: On the date of procedure patient's R lower extremity was marked in the preoperative area. The patient was then taken back to the operating room where the patient was placed on the table in the supine position. All bony prominences were identified a well-padded. Anesthesia assumed control of the C-spine and airway and remained controlled throughout the remainder of the procedure. A tourniquet was placed on the R upper thigh and the leg was prepped in a sterile fashion. The surgeon then scrubbed at this time. Upon reentering the room R lower extremity was draped in a standard orthopedic fashion. A timeout was then called and everyone agreed upon the side, the site, the procedure to be performed, patient's identity and antibiotics given. An Esmarch bandage was used to exsanguinate the extremity and the tourniquet was placed up to 250 mmHg with the knee in flexion. A midline skin incision was made using the previous incision and extending it proximally and distally to identify normal tissue planes. Medial and lateral flaps were developed appropriate releases. The standard medial parapatellar arthrotomy was made and the patella was subluxed laterally. At this time an aggressive synovectomy was performed re-creating the medial gutter first, then the suprapatellar pouch than the lateral gutter. Once this was completed the knee was flexed up an osteotome was used to remove the tibial polyethylene. The remainder of the synovium was debrided. The standard deep MCL release was done and the patella scar pad was resected and lateral releases were performed. Next our attention was directed to the femur. Where flexible osteotomes and TPS saw were used to break up the implant cement interface. This was done both medially and laterally. After this a bone tamp was used to remove the femur component from the end of the bone. This was done with minimal bone loss. At this time attention was now directed towards the proximal tibia. Possible osteotome and TPS saw were then used to break up the proximal tibia implant interface and stacked osteotomes were used to remove the tibial implant. This was done with minimal bone loss. Our attention was then turned to the tibia where the intramedullary canal was reamed to 18 and a size A tibial cone was reamed. We then made a cleanup cut on the tibia, A drop bravo was then used to verify the cut. A size 3 tibial base plate was selected. the knee was flexed and the tibial component was pinned into place and the boss reamer was used to ream the proximal medullary canal. The trial implant was impacted in its prepared position. Our attention was then turned back to the femur or the femur intramedullary canal was reamed to 18 mm using the previous implants a size 4 TCG cutting guide with a 18 mm stem was put into place. The medial epicondyle was used to set the joint line. With this TCG cutting guide we used a 19 mm polyethylene trial in order to help balance the gaps. Once the gaps were appropriately balanced the guide was firmly pinned into place. Distal cuts were made with 5 mm augments medially and 5 mm augment laterally. Posterior cuts were made with 5 mm augments medially and 5 mm augment laterally. Using the guide the box cut was made using a reciprocating saw. The appropriate trials were then placed on the femur and tibia. A trial polyethylene was trialed to ensure proper balancing and stability of the knee. Patella tracking, was then verified and corrected appropriately as needed. Our attention was then directed to the patella. Patella remained intact and appropriate. Based on x-rays it was firmly fixed. Patellar tracking was again checked and deemed appropriate. Final components were verified and opened, 6 liters of normal saline were irrigated throughout the joint under low-pressure lavage. Then the cement was mixed in a vacuum. [place] Simplex cement with tobramycin was used. The wound was copiously irrigated with normal saline. When the cement was ready cement plugs were placed in the tibial cone was placed the components were cemented into place starting with the tibia, femur. The trial poly component was placed and the knee was placed in full extension. All excess cement was removed in the process. Once the cement had cured the tr acking, alignment and balance were verified and a size 19 mm TS polyethylene component was placed. Once the final components were placed and a 3-minute Betadine lavage followed by a chlorhexidine lavage was used and the wound was copiously irrigated with normal saline solution and the remainder of the periarticular injection was given. The wound was closed in a layer stubbs fashion using #1 vicryl interrupted sutures for the arthrotomy, 2-0 interrupted Vicryl for the subcuticular layer and mariia for final skin closure. A sterile compressive dressing was then placed. The patient was then awakened from anesthesia, [facility] and transferred to the PACU for recovery. Post op plan DVT ppx: ASA 81mg BID, thigh high compression stockings Follow up: in office in 2 weeks for wound check PT: to start POD #0 at hospital, outpatient PT should be arranged. Patient be placed on doxycycline for 1 week as we follow her cultures postoperatively. My physician obstetric assistant was a vital part of this case. He was important in appropriate retraction during the case, and protection of soft tissues during bony cuts. His intimate knowledge of the case and my steps aided in safe and expedient completion of the procedure as well as appropriate position of the leg during the case. He was also vital in assisting with closure under my direct supervision. - Complications No intraoperative complications - Admit VTE Documentation VTE Present on Admission: No VTE Mechan Device Prophylaxis: SCD's, Thigh High TEE Hose VTE Pharm Prophylaxis ordered?: Yes
[2020-04-02] MEDS: Ensure Surgery 237 ML LIQUID PO (17:47)
[2020-04-02] MEDS: Aspirin 81 MG TAB.CHEW PO (17:47)
[2020-04-02] MEDS: Cefazolin 1 GM/50 ML BAG IV (19:47)
[2020-04-02] MEDS: Senna/Docusate Sodium 1 Tablet 2 TABLET PO (21:10)
[2020-04-02] MEDS: Montelukast 10 MG Tablet PO (21:10)
[2020-04-02] MEDS: Doxycycline 100 MG CAPSULE PO (21:10)
[2020-04-02] MEDS: Fluticasone 0.05% 1 SPRAY NASAL.SRY 2 SPRAY NASAL (23:28)
[2020-04-03 02:10] VITALS: BP 109/59; PULSE 65; RESP 18; TEMP 36.5; O2SAT 99
[2020-04-03] MEDS: Cefazolin 1 GM/50 ML BAG IV (04:29)
[2020-04-03] MEDS: Ketorolac 15 MG/ML Vial IV ×2 (04:33→12:45)
[2020-04-03 06:07] LABS: Hematocrit 36.7 % (37-47); Mean Corp Hgb Conc 32.7 g/dL (32-36); Mean Corpuscular Hgb 32.3 pg (27.0-32.0); Mean Corpuscular Volume 98.9 fL (81-99); Mean Platelet Vol. 11.1 fl (6.2-12.0); Platelet Count 223 K/mm3 (150-450); RBC Distribution Width CV 11.8 % (11.6-14.6); RBC Distribution Width SD 42.6 fl (35.1-43.9); Red Blood Count 3.71 M/mm3 (4.2-5.4); White Blood Count 17.6 K/mm3 (4.4-11.0)
[2020-04-03 06:33] LABS: Anion Gap 7 (5-15); BUN 16 mg/dL (7-18); BUN/Creat Ratio 20.8 RATIO (10-20); Calcium,Total 8.6 mg/dL (8.5-10.1); Chloride 107 mmol/L (98-107); Creatinine, Serum 0.77 mg/dL (0.55-1.02); EST Glomerular Filtration Rate 79 mL/min (>60); Est Glom Filt Rate - Afr Amer 95 mL/min (>60); Estimated Creatinine Clearance 47.78 ml/min; Glucose 119 mg/dL (74-106); Potassium 4.1 mmol/L (3.5-5.1); Sodium Level 139 mmol/L (136-145)
[2020-04-03 07:50] VITALS: BP 117/82; PULSE 68; RESP 16; TEMP 36.7; O2SAT 98
[2020-04-03] MEDS: Aspirin 81 MG TAB.CHEW PO (08:00)
[2020-04-03] MEDS: Loratadine 10 MG Tablet 5 MG PO (08:00)
[2020-04-03] MEDS: Doxycycline 100 MG CAPSULE PO (08:01)
[2020-04-03] MEDS: Famotidine 20 MG Tablet PO (08:01)
[2020-04-03] MEDS: Senna/Docusate Sodium 1 Tablet 2 TABLET PO (08:02)
[2020-04-03] MEDS: Ensure Surgery 237 ML LIQUID PO ×2 (08:03→12:44)
--- NOTE | 2020-04-03 09:43 | PCM.PN.ORT ---
Subjective: The patient was sitting in bed upon examination. Patient denies any chest pain, shortness of breath, dizziness, lightheadedness, nausea or vomiting, or calf pain. Pain is controlled on medications. No adverse overnight events. Overall patient is doing very well. She has been through physical therapy and tolerated this well. Her pain is been controlled. Plan will be for discharge home today. Objective: Vital signs stable and afebrile. Patient is able to plantarflex and dorsiflex actively. Sensation is intact to light touch to saphenous, sural, superficial and deep peroneal, and tibial distribution. Dressing is clean dry and intact. Negative Homans bilaterally, negative signs and symptoms of DVT. - Physical Exam Vitals/I&O's: Vital Signs Temp Pulse Resp BP Pulse Ox 97.7 F L 65 18 109/59 L 99 04/03/20 02:10 04/03/20 02:10 04/03/20 02:10 04/03/20 02:10 04/03/20 02:10 Oxygen Flow Rate (L/min) 6 Oxygen Delivery Method Room Air Weight: 73.8 kg Body Mass Index (BMI) 27.1 Intake and Output for Last 24 Hours 04/01/20 04/02/20 04/03/20 23:59 23:59 23:59 Intake Total 5422.00 / 5422.00 762.0 / 762.0 Balance 5422.00 / 5422.00 762.0 / 762.0 General: Alert, Oriented x3, Cooperative, No apparent distress Microbiology Past 72 Hours 04/02/20 14:30 Tissue - Knee Anaerobic Culture - Preliminary No growth in 48 hours. 04/02/20 14:30 Tissue - Knee Anaerobic Culture - Preliminary No growth in 48 hours. 04/02/20 14:30 Tissue - Knee Anaerobic Culture - Preliminary No growth in 48 hours. Laboratory Results 04/02/20 10:58: POC Glucose 104 04/03/20 05:10: WBC 17.6 H, RBC 3.71 L, Hgb 12.0, Hct 36.7 L, MCV 98.9, MCH 32.3 H, MCHC 32.7, RDW Std Deviation 42.6, RDW Coeff of [place] 11.8, Plt Count 223, MPV 11.1 04/03/20 05:10: Sodium 139, Potassium 4.1, Chloride 107, Carbon Dioxide 25.0, Anion Gap 7, BUN 16, Creatinine 0.77, Estim Creat Clear Calc 47.78, Est GFR (MDRD) Af Amer 95, Est GFR (MDRD) Non-Af 79, BUN/Creatinine Ratio 20.8 H, Glucose 119 H, Calcium 8.6 Current Medications Aspirin (Aspirin 81 Mg Tab.Chew) 81 mg PO BIDCM [facility] Last Admin: 04/03/20 08:00 Dose: 81 mg Documented by: Cholecalciferol (Cholecalciferol (Vit D3) 1,000 Unit (25mcg)) 2,000 unit PO DAILY [facility] Last Admin: 04/03/20 08:01 Dose: 2,000 unit Documented by: Doxycycline Monohydrate (Doxycycline 100 Mg Capsule) 100 mg PO BID [facility] Last Admin: 04/03/20 08:01 Dose: 100 mg Documented by: Enteral Nutritional Formula (Ensure Surgery 237 Ml Liquid) 237 ml PO TIDCM [facility] Last Admin: 04/03/20 08:03 Dose: 237 ml Documented by: Famotidine (Famotidine 20 Mg Tablet) 20 mg PO DAILY [facility] Last Admin: 04/03/20 08:01 Dose: 20 mg Documented by: Fluticasone Propionate (Fluticasone 0.05% 1 [place] Nasal.Sry) 2 spray NASAL DAILY [facility] Last Admin: 04/03/20 08:06 Dose: Not Given Documented by: Insulin Human Lispro (Insulin Lispro 100 Unit/Ml Insuln.Pen) 1 - 6 unit SC Q4H PRN PRN; Protocol PRN Reason: BG>/= 180, SEE PROTOCOL Ketorolac Tromethamine (Ketorolac 15 Mg/Ml Vial) 15 mg IV Q6H PRN PRN PRN Reason: Pain Score 1-5 Last Admin: 04/03/20 04:33 Dose: 15 mg Documented by: Loratadine (Loratadine 10 Mg Tablet) 5 mg PO DAILY [facility] Last Admin: 04/03/20 08:00 Dose: 5 mg Documented by: Meloxicam (Meloxicam 7.5 Mg Tablet) 7.5 mg PO BID [facility] Montelukast Sodium (Montelukast 10 Mg Tablet) 10 mg PO QHS [facility] Last Admin: 04/02/20 21:10 Dose: 10 mg Documented by: Morphine Sulfate (Morphine 2 Mg/Ml Syringe) 2 - 4 mg IV Q2H PRN PRN PRN Reason: Pain Score 6-10 Morphine Sulfate (Morphine 4 Mg/Ml Syringe) 2 - 4 mg IV Q2H PRN PRN PRN Reason: Pain Score 6-10 Ondansetron HCl (Ondansetron 4 Mg/2 Ml Vial) 4 mg IV Q8H PRN PRN PRN Reason: NAUSEA Pantoprazole Sodium (Pantoprazole Sodium 20 Mg Tablet) 20 mg PO DAILY PRN PRN Reason: INDIGESTION Promethazine HCl (Promethazine 25 Mg/Ml Syringe) 12.5 mg IM Q6H PRN PRN; Protocol PRN Reason: NAUSEA/VOMITING Pseudoephedrine HCl (Pseudoephedrine 60 Mg Tablet) 60 mg PO 4X/DAY [facility] Last Admin: 04/03/20 08:03 Dose: 60 mg Documented by: Senna/Docusate Sodium (Senna/Docusate Sodium 1 Tablet) 2 tablet PO BID [facility] Last Admin: 04/03/20 08:02 Dose: 2 tablet Documented by: Sodium Chloride (0.9% Saline Lock 10 Ml Syringe) 10 - 40 ml IV UD PRN PRN Reason: SALINE FLUSH Tramadol HCl (Tramadol 50 Mg Tablet) 50 - 100 mg PO Q6H PRN PRN PRN Reason: Pain Score 4-10 Medical Necessity - Tobacco Use Smoking Status: Never smoker Tobacco Use: Non-smoker Assessment/Plan All Active Problems (Last Reviewed 03/13/18 @ 07:[address] Aldo Wheeler MD) Personal history of colonic polyps (Acute) 1. S/P right revision total knee arthroplasty POD #1 2. Continue Pain Medications: Tylenol and tramadol 3. DVT Prophylaxis: Take 81 mg aspirin twice daily for 4 weeks postoperatively for DVT prophylaxis 4. PT/OT: Weightbearing as tolerated 5. H & H: 12.0/36.7, asymptomatic. Secondary to acute blood loss from surgery 6. Encouraged Incentive Spirometry 7. Reactive leukocytosis: Currently 17.6, afebrile. Patient did receive Decadron intraoperatively 8. Disposition: Orthopedically stable, plan will be for discharge home today as long as patient continues to tolerate therapy and pain is well controlled. Prescriptions will be E scribed to [facility] pharmacy. Patient will follow-up per postop instructions. Patient does have outpatient physical therapy established. I have reviewed the [place] Automated Rx Reporting System (OARRS) report for this patient for refill pattern and other prescriber involvement as part of the appropriate surveillance for the provision of acute and chronic controlled medications. The report was requested and reviewed on the date of this entry and was considered in the prescribing process.
--- NOTE | 2020-04-03 09:49 | DCINST_ITS ---
Discharge Diet: No Restrictions Discharge Activity: May Not Drive May shower in (days): 1 - Dressing must be intact to skin. Turned dressing away from water Ice area for (Minutes): 20 - every hour while awake. Weight Bearing Status: Weight bearing as tolerated Elevate: Operative Extremity Additional Activity Instructions:: Wear elastic stockings for 2 weeks after your surgery. Call your doctor if your incision/area has: Continuous Slow Oozing, Sudden Increased Bleeding, Increased Pain/ Swelling, Increased Redness, Foul Smelling Discharge Call your doctor if you observe: Fever of 101 or Higher, Coldness, Increased Pain, Numbness or Tingling, Change in Color, Calf discomfort, Uncontrolled pain Remove Dressing in (days):: 4 - Okay to remove dressing on April 07, 2020 Additional Instructions: Follow orthopedic postop instructions Allergies/Adverse Reactions: Allergies latex Allergy (Verified 04/02/20 10:53) Rash oxycodone Allergy (Verified 04/02/20 10:53) [place]ARIA acetaminophen [From [place]] Adverse Reaction (Verified 04/02/20 10:53) Nausea atorvastatin [From Lipitor] Adverse Reaction (Verified 04/02/20 10:53) MUSCLE CRAMPS hydrocodone [From [place]] Adverse Reaction (Verified 04/02/20 10:53) Nausea pravastatin Adverse Reaction (Verified 04/02/20 10:53) MUSCLE CRAMPS shellfish Allergy (Intermediate, Uncoded 04/02/20 10:53) rash/hives Medications to take at Discharge Cholecalciferol (Vitamin D3) [Vitamin D3] 2,000 unit PO DAILY 08/16/16 Montelukast Sodium [Singulair] 10 mg PO QHS 08/16/16 Omeprazole [Prilosec] 20 mg PO PRN PRN 08/16/16 fluticasone propionate 50 mcg/actuation nasal spray,suspension 2 spray INTRANASAL QDAY 01/12/18 Lipase/Protease/Amylase [[place] Dr 6,000 Units Capsule] 1 ea PO TID 03/17/20 Loratadine/Pseudoephedrine [[place]vert D-12 Allergy-Sinus Tab] 1 ea PO DAILY 03/17/20 Aspirin [Aspirin, Baby] 81 mg PO BIDCM #60 tab 04/03/20 Doxycycline 100 mg PO BID #14 cap 04/03/20 Meloxicam [Mobic] 7.5 mg PO BID #60 tab 04/03/20 Senna/Docusate Sodium [Senokot-S] 2 tab PO BID #10 tab 04/03/20 traMADol [Ultram] 50 - 100 mg PO Q6H PRN PRN 6 Days #48 tablet 04/03/20 The following prescriptions were given: Aspirin [Aspirin, Baby] 81 mg PO BIDCM #60 tab Transmission Status: Pending to [facility] Doxycycline 100 mg PO BID #14 cap Transmission Status: Pending to [facility] Meloxicam [Mobic] 7.5 mg PO BID #60 tab Transmission Status: Pending to [facility] Senna/Docusate Sodium [Senokot-S] 2 tab PO BID #10 tab Transmission Status: Pending to [facility] traMADol [Ultram] 50 - 100 mg PO Q6H PRN PRN 6 Days #48 tablet PRN Reason: Pain Score 4-10 Transmission Status: Sent to [facility] Primary Care Physician: Go Davis DO [Primary Care Provider] - Test Results: Test results from this visit will be discussed in further detail at your follow- up appointment, if applicable. Please Follow Up With: [facility] When: 04/07/20 @ 9:30 am with Tello Please Follow Up With: Nickolas Lai PA-C When: 04/16/20 @ 9:15 am
--- NOTE | 2020-04-03 10:20 | CASEMGMT ---
WARREN RUBALCAVA Face to Face with patient for initial transition planning/care coordination assessment. WARREN RUBALCAVA introduced self and role at [facility]. Patient lying in bed, alert and oriented. Patient willing to participate in assessment and is able to answer all questions appropriately. Care providers, pharmacy, and demographics verified. Patient wishes to discharge home and is scheduled for outpatient therapy at [facility]. Patient states he has no further needs or concerns at this time. CM to follow for discharge planning needs that may arise. PCP: Susan Specialists: jung Albrecht Preferred Pharmacy: [facility] retail rx Insurance: [employer] [facility] Prescription Benefit: yes Living Will/HPOA: yes, Ector At[place] LNOK: Living Arrangements: Patient lives with in a 1 story home with 4 steps and railing to enter the home. Patient states she was independent at home prior to surgery. Transportation: DME/HHC: Patient states she has cane and crutches at home, patient will need walker at discharge. List of DME companies provided to patient and prefers [employer]. WARREN RUBALCAVA received script for FWW and referral sent to [employer]. WARREN RUBALCAVA arranged for walker to be delivered to patient's room prior to discharge. Patient is scheduled for outpatient therapy at [facility] starting Tuesday. Disposition Plan: Patient to discharge home with outpatient therapy, family support, and follow-up plans in place. Marah WILCOX, RN, CM
[2020-04-03] MEDS: 0.9% Saline Lock 10 ML Syringe IV (12:47)
[2020-04-03 13:20] VITALS: BP 126/63; PULSE 81; RESP 16; TEMP 36.7; O2SAT 99
== END 2020-04-03 14:08 | disposition home or self-care (01) | DRG 468 ==
LOC: ACINP 09:56 → MS3 16:10
PROVIDERS: Anesthesiology; Admitting Provider Specialist; PCP Family Medicine; Referring Provider Specialist; Visit Provider Specialist
PROC: 0SPC0JZ Removal of Synthetic Substitute from Right Knee Joint, Open Approach (ICD-10-PCS; principal; 2020-04-02 11:35)
DX: T84.84XA Pain due to internal orthopedic prosthetic devices, implants and grafts, initial encounter (principal); Y83.1 Surgical operation with implant of artificial internal device as the cause of abnormal reaction of the patient, or of later complication, without mention of misadventure at the time of the procedure; Z96.651 Presence of right artificial knee joint; T84.033A Mechanical loosening of internal left knee prosthetic joint, initial encounter; K58.9 Irritable bowel syndrome, unspecified; E78.00 Pure hypercholesterolemia, unspecified
CPT/HCPCS: 36415; 73560; 80048; 82962; 83735; 85027; 87015; 87070; 87075; 87102; 87116; 87176; 87205; 87206; 87635; 93005; 97110; 97162; 97166; 97530; 97535; 99251; C1776; C9803; J7120; A4216; G0463; J2405; U0003

== ENCOUNTER → 2020-05-07 10:18 | Outpatient (CLI) | payer MEDICARE, SELFPAY ==
[2020-04-02 16:06] VITALS: BMI 27.1
[2020-05-07 11:52] LABS: Absolute Lymphocyte Count 1.15 X10^3/uL (0.83-4.51); Absolute Neutrophil Count 6.4 X10^3/uL (2.0-7.7); Basophil# 0.05 X10^3/uL; Basophil% 0.6 % (0-1); Eosinophil# 0.15 X10^3/uL; Eosinophils% 1.8 % (0-5); Hematocrit 38.1 % (37-47); Hemoglobin 12.3 g/dL (12.0-15.0); Lymphocyte # 1.15 X10^3/ul (4.0); Lymphocyte % 13.5 % (19-41); Mean Corp Hgb Conc 32.3 g/dL (32-36); Mean Corpuscular Hgb 31.5 pg (27.0-32.0); Mean Corpuscular Volume 97.4 fL (81-99); Mean Platelet Vol. 10.5 fl (6.2-12.0); Monocyte# 0.79 X10^3/uL; Monocyte% 9.3 % (0-10); NRBC Flagged by Analyzer 0 % (0-5); Neutrophil # 6.36 X10^3/uL (2.7-7.7); Neutrophil % 74.4 % (47-70); Platelet Count 305 K/mm3 (150-450); RBC Distribution Width CV 11.8 % (11.6-14.6); Red Blood Count 3.91 M/mm3 (4.2-5.4); White Blood Count 8.5 K/mm3 (4.4-11.0)
[2020-05-07 12:10] LABS: CRP 7.92 mg/L (0.0-3.0); Erythrocyte Sedimentation Rate 30 mm/hr (0-30)
== END ==
PROVIDERS: PCP Family Medicine; Referring Provider Physician Assistant Surgical; Visit Provider Physician Assistant Surgical
DX: M25.461 Effusion, right knee (principal); Z96.651 Presence of right artificial knee joint
CPT/HCPCS: 36415; 85025; 85652; 86140

== ENCOUNTER → 2020-05-19 12:07 | Outpatient (CLI) | payer MEDICARE, SELFPAY ==
[2020-04-02 16:06] VITALS: BMI 27.1
[2020-05-19 12:29] LABS: RBC /Synovial Fluid 0.025 10^6/uL (0); Synovial Fld Mononuclear WBC % 32.6 %; Synovial Fld Polynuclear WBC # 0.813 10^3/uL; Synovial Fld Polynuclear WBC % 67.4 %
[2020-05-19 12:31] LABS: AUTO B FLUID DILUENT BKGD CT WBC <0.1 RBC <0.01 (W<.1,R<.01); Appearance /Synovial Fluid Sl Cl (CLEAR); Source / Synovial Fluid RIGHT KNEE
[2020-05-19 12:32] LABS: Color / Synovial Fluid Pink (Pale Yellow)
[2020-05-19 13:23] LABS: Body Fluid QC Type(s) BF1Q; Lymph 7 %; Monocyte /Synovial Fluid 17 %; Neutrophil 76 % (0-25)
[2020-05-20 12:57] LABS: Pathologist Comment Reviewed
== END ==
PROVIDERS: PCP Family Medicine; Referring Provider Specialist; Visit Provider Specialist
DX: Z96.651 Presence of right artificial knee joint (principal)
CPT/HCPCS: 87015; 87070; 87075; 87101; 87116; 87205; 87206; 89050; 89051

== ENCOUNTER → 2020-07-08 10:14 | Outpatient (CLI) | payer MEDICARE, SELFPAY ==
[2020-04-02 16:06] VITALS: BMI 27.1
[2020-07-08 12:54] LABS: Absolute Lymphocyte Count 1.38 X10^3/uL (0.83-4.51); Absolute Neutrophil Count 6.3 X10^3/uL (2.0-7.7); Basophil# 0.06 X10^3/uL; Basophil% 0.7 % (0-1); Eosinophil# 0.16 X10^3/uL; Eosinophils% 1.9 % (0-5); Hemoglobin 11.7 g/dL (12.0-15.0); Lymphocyte # 1.38 X10^3/ul (4.0); Lymphocyte % 16.1 % (19-41); Mean Corp Hgb Conc 32.5 g/dL (32-36); Mean Corpuscular Hgb 31.5 pg (27.0-32.0); Mean Corpuscular Volume 96.8 fL (81-99); Mean Platelet Vol. 10.3 fl (6.2-12.0); Monocyte# 0.61 X10^3/uL; Monocyte% 7.1 % (0-10); NRBC Flagged by Analyzer 0 % (0-5); Neutrophil # 6.33 X10^3/uL (2.7-7.7); Neutrophil % 73.6 % (47-70); Platelet Count 323 K/mm3 (150-450); RBC Distribution Width CV 12.6 % (11.6-14.6); RBC Distribution Width SD 44.4 fl (35.1-43.9); Red Blood Count 3.72 M/mm3 (4.2-5.4); White Blood Count 8.6 K/mm3 (4.4-11.0)
[2020-07-08 13:08] LABS: ALB/GLOB Ratio 1.1 RATIO (0.9-2.4); AST(SGOT) 15 U/L (15-37); Alanine Aminotransfer ALT/SGPT 25 U/L (13-56); Albumin, Serum 3.6 g/dL (3.2-5.0); Alkaline Phosphatase 94 U/L (45-117); Anion Gap 4 (5-15); BUN 18 mg/dL (7-18); BUN/Creat Ratio 22.2 RATIO (10-20); Calcium,Total 9.1 mg/dL (8.5-10.1); Chloride 107 mmol/L (98-107); Cholesterol 243 mg/dL (200); Creatinine, Serum 0.81 mg/dL (0.55-1.02); EST Glomerular Filtration Rate 74 mL/min (>60); Est Glom Filt Rate - Afr Amer 90 mL/min (>60); Globulin 3.4 g/dL (2.2-4.2); Glucose 89 mg/dL (74-106); High Density Lipoprotein 58 mg/dL; Potassium 4.2 mmol/L (3.5-5.1); Sodium Level 139 mmol/L (136-145); Triglycerides 185 mg/dL; Very Low Density Lipoprotein 37 mg/dL (5-40); Vitamin D,25 Hydroxy 66.4 ng/mL
== END ==
PROVIDERS: PCP Family Medicine; Visit Provider Family Medicine
DX: E78.5 Hyperlipidemia, unspecified (principal); M85.80 Other specified disorders of bone density and structure, unspecified site; E55.9 Vitamin D deficiency, unspecified; Z51.81 Encounter for therapeutic drug level monitoring
CPT/HCPCS: 36415; 80053; 80061; 82306; 85025

== ENCOUNTER → 2021-01-15 12:42 | Outpatient (CLI) | payer MEDICARE, SELFPAY ==
[2020-04-02 16:06] VITALS: BMI 27.1
--- NOTE | 2021-01-15 12:45 | BI_ITS ---
MAMMOGRAPHY - BILATERAL SCREENING REASON FOR EXAM: Female, 70 years old. Routine annual screening examination. PERTINENT HISTORY: Personal history of breast cancer. Prior left lumpectomy. Mother with breast cancer. TECHNIQUE: Digital bilateral breast maurice (3D mammographic acquisition) in the CC and MLO projections. 2-D mediolateral oblique (MLO) and craniocaudad (CC) views of both breasts were obtained. CAD: Full Field Digital Mammography with Computer Added Detection was performed. COMPARISON: Comparison is made with prior study dated 01/11/2020 and 01/09/2019. FINDINGS: Breast Composition: There are scattered areas of fibroglandular density. There are no dominant masses or suspicious calcifications. Stable 4 mm well-defined nodule in the axillary region of the left breast suggestive of a small lymph node. Stable bilateral axillary lymph nodes. No other significant abnormalities are identified. There has been no significant change since the prior study. BI/SCRN MAMM (CAD)W/MAURICE BILAT IMPRESSION: Stable bilateral screening mammogram. Yearly follow-up mammogram recommended. (A) ASSESSMENT CATEGORY: BIRADS Category 2: Benign. A letter regarding these results will be sent to the patient by the facility within 30 days. Approximately 10% of breast cancers are not detected by mammography. A normal mammogram should not delay biopsy of a clinically suspicious abnormality. [id number] Electronically Signed: Charlie Walker MD at 13:46 EDT , Service support ,
== END ==
PROVIDERS: PCP Family Medicine; Referring Provider Family Medicine; Visit Provider Family Medicine
DX: Z12.31 Encounter for screening mammogram for malignant neoplasm of breast (principal)
CPT/HCPCS: 77063; 77067

== ENCOUNTER → 2021-04-06 09:59 | Outpatient (CLI) | payer MEDICARE, SELFPAY ==
--- NOTE | 2021-04-06 10:17 | EKG12_ITS ---
Test Reason : PRE OP Blood Pressure : / mmHG Vent. Rate : 061 BPM Atrial Rate : 061 BPM P-R Int : 160 ms QRS Dur : 090 ms QT Int : 422 ms P-R-T Axes : 068 053 069 degrees QTc Int : 424 ms Normal sinus rhythm Normal ECG Confirmed by TELLY STOUT, ANDREA ([id number]), commissioning editor MAYELIN MILLER ([id number]) on 04/07/2021 9:26:39 AM Referred By: Nathan Lopez Confirmed By:ANDREA VARNER MD
--- NOTE | 2021-04-06 10:30 | RAD_ITS ---
EXAM: XR CHEST, 2 VIEWS : 1950 CLINICAL INDICATION: PRE OP -- . TECHNIQUE: Frontal and lateral views of the chest. This report was created using [employer] report generation technology. COMPARISON: None. FINDINGS: LUNGS AND PLEURAL SPACES: Unremarkable. No consolidation or edema. No pneumothorax. No effusion. HEART: Unremarkable. Cardiac silhouette not enlarged. MEDIASTINUM: Central airways and mediastinal contour are unremarkable. BONES/JOINTS: Unremarkable. SOFT TISSUES: Unremarkable. RAD/Chest PA and Lateral IMPRESSION: No radiographic evidence of acute cardiopulmonary disease. at 0256 Reported and signed by: Elia Jama MD Electronically Signed: Elia Jama MD at 2:55 EDT Tel , Service support ,
[2021-04-06 11:58] LABS: Absolute Lymphocyte Count 1.37 X10^3/uL (0.83-4.51); Absolute Neutrophil Count 4.5 X10^3/uL (2.0-7.7); Basophil# 0.08 X10^3/uL; Basophil% 1.2 % (0-1); Eosinophil# 0.14 X10^3/uL; Eosinophils% 2.1 % (0-5); Hematocrit 41.7 % (37-47); Hemoglobin 13.7 g/dL (12.0-15.0); Lymphocyte # 1.37 X10^3/ul (0.83-4.51); Lymphocyte % 20.7 % (19-41); Mean Corp Hgb Conc 32.9 g/dL (32-36); Mean Corpuscular Hgb 32.4 pg (27.0-32.0); Mean Corpuscular Volume 98.6 fL (81-99); Mean Platelet Vol. 10.9 fl (6.2-12.0); Monocyte# 0.56 X10^3/uL; Monocyte% 8.5 % (0-10); NRBC Flagged by Analyzer 0 % (0-5); Neutrophil # 4.45 X10^3/uL (2.7-7.7); Neutrophil % 67.2 % (47-70); Platelet Count 252 K/mm3 (150-450); Prothrombin Time (Protime)PT. 12.5 SECONDS (11.7-14.9); RBC Distribution Width CV 12.2 % (11.6-14.6); RBC Distribution Width SD 44.1 fl (35.1-43.9); Red Blood Count 4.23 M/mm3 (4.2-5.4); White Blood Count 6.6 K/mm3 (4.4-11.0)
[2021-04-06 12:16] LABS: Anion Gap 6 (5-15); BUN 17 mg/dL (7-18); BUN/Creat Ratio 24.1 RATIO (10-20); Calcium,Total 9.2 mg/dL (8.5-10.1); Chloride 106 mmol/L (98-107); EST Glomerular Filtration Rate 87 mL/min (>60); Est Glom Filt Rate - Afr Amer 105 mL/min (>60); Glucose 85 mg/dL (74-106); Potassium 3.8 mmol/L (3.5-5.1); Sodium Level 139 mmol/L (136-145)
== END ==
PROVIDERS: PCP Family Medicine; Referring Provider Orthopaedic Surgery; Visit Provider Orthopaedic Surgery
DX: Z01.810 Encounter for preprocedural cardiovascular examination (principal); Z51.89 Encounter for other specified aftercare
CPT/HCPCS: 36415; 71046; 80048; 85025; 85610; 85730; 93005

== ENCOUNTER → 2022-02-02 | Outpatient (CLI) | payer MEDICARE, SELFPAY ==
--- NOTE | 2022-02-02 12:35 | BI_ITS ---
MAMMOGRAPHY - BILATERAL SCREENING 3-D TOMOSYNTHESIS REASON FOR EXAM: Female, 71 years old. SCREENING PERTINENT HISTORY: No significant family history. TECHNIQUE: 2-D mammograms and 3-D Tomosynthesis of the breast (s) were performed. CAD was performed. COMPARISON: 01/15/2021 FINDINGS: The breast composition is composed of scattered fibroglandular density. Scattered benign calcifications are seen. No dense spiculated masses or suspicious microcalcifications are identified. No architectural distortion is identified. There is no skin thickening or retraction. There has been no significant change since the prior study. BI/SCRN MAMM (CAD)W/MAURICE BILAT IMPRESSION: No mammographic signs of malignancy. Routine yearly mammograms recommended. ASSESSMENT CATEGORY: BIRADS Category 1: Negative. A letter regarding these results will be sent to the patient by the facility within 30 days. FOLLOW UP RECOMMENDATION: Yearly follow up mammogram recommended. (A) Approximately 10% of breast cancers are not detected by mammography. A normal mammogram should not delay biopsy of a clinically suspicious abnormality. Electronically Signed: Sim Lambert MD at 17:22 EDT ,
== END | disposition home or self-care (01) ==
LOC: OPBI 12:33
PROVIDERS: PCP Family Medicine; Visit Provider Family Medicine
DX: Z12.31 Encounter for screening mammogram for malignant neoplasm of breast (principal)
CPT/HCPCS: 77063; 77067

== ENCOUNTER → 2022-02-09 | Outpatient (CLI) | payer MEDICARE, SELFPAY ==
[2022-02-09 18:16] LABS: Absolute Lymphocyte Count 2.13 X10^3/uL (0.83-4.51); Absolute Neutrophil Count 4.8 X10^3/uL (2.0-7.7); Basophil# 0.06 X10^3/uL; Basophil% 0.8 % (0-1); Eosinophil# 0.15 X10^3/uL; Eosinophils% 1.9 % (0-5); Hematocrit 40.1 % (37-47); Hemoglobin 13.3 g/dL (12.0-15.0); Lymphocyte # 2.13 X10^3/ul (0.83-4.51); Mean Corp Hgb Conc 33.2 g/dL (32-36); Mean Corpuscular Hgb 32.3 pg (27.0-32.0); Mean Corpuscular Volume 97.3 fL (81-99); Mean Platelet Vol. 10.9 fl (6.2-12.0); Monocyte# 0.68 X10^3/uL; Monocyte% 8.6 % (0-10); NRBC Flagged by Analyzer 0 % (0-5); Neutrophil # 4.82 X10^3/uL (2.7-7.7); Neutrophil % 61.2 % (47-70); Platelet Count 268 K/mm3 (150-450); Red Blood Count 4.12 M/mm3 (4.2-5.4); White Blood Count 7.9 K/mm3 (4.4-11.0)
[2022-02-09 18:35] LABS: AST(SGOT) 20 U/L (15-37); Alanine Aminotransfer ALT/SGPT 29 U/L (13-56); Albumin, Serum 3.9 g/dL (3.2-5.0); Alkaline Phosphatase 101 U/L (45-117); Anion Gap 8 (5-15); BUN 10 mg/dL (7-18); BUN/Creat Ratio 11.9 RATIO (10-20); Calcium,Total 8.8 mg/dL (8.5-10.1); Chloride 106 mmol/L (98-107); Creatinine, Serum 0.84 mg/dL (0.55-1.02); EST Glomerular Filtration Rate 71 mL/min (>60); Est Glom Filt Rate - Afr Amer 86 mL/min (>60); Globulin 3.8 g/dL (2.2-4.2); Glucose 88 mg/dL (74-106); Potassium 3.6 mmol/L (3.5-5.1); Protein, Total 7.7 g/dL (6.4-8.2); Sodium Level 140 mmol/L (136-145); T4 Free Direct 1.06 ng/dL (0.76-1.46); Thyroid Stim Hormone (TSH) 1.57 uIU/mL (0.358-3.74)
== END | disposition home or self-care (01) ==
LOC: MTLAB 15:59
PROVIDERS: PCP Family Medicine; Referring Provider Family Medicine; Visit Provider Family Medicine
DX: R61 Generalized hyperhidrosis (principal)
CPT/HCPCS: 36415; 80053; 84439; 84443; 85025

== ENCOUNTER → 2022-05-07 | Outpatient (CLI) | payer MEDICARE, SELFPAY ==
[2022-05-07 10:26] LABS: Absolute Lymphocyte Count 1.84 X10^3/uL (0.83-4.51); Absolute Neutrophil Count 4.9 X10^3/uL (2.0-7.7); Basophil# 0.06 X10^3/uL; Basophil% 0.8 % (0-1); Eosinophil# 0.16 X10^3/uL; Eosinophils% 2.1 % (0-5); Hematocrit 41.5 % (37-47); Hemoglobin 14.1 g/dL (12.0-15.0); Lymphocyte # 1.84 X10^3/ul (0.83-4.51); Mean Corpuscular Hgb 32.3 pg (27.0-32.0); Mean Corpuscular Volume 95.2 fL (81-99); Mean Platelet Vol. 10.6 fl (6.2-12.0); Monocyte# 0.69 X10^3/uL; NRBC Flagged by Analyzer 0 % (0-5); Neutrophil # 4.88 X10^3/uL (2.7-7.7); Neutrophil % 63.6 % (47-70); Platelet Count 261 K/mm3 (150-450); RBC Distribution Width SD 42.3 fl (35.1-43.9); Red Blood Count 4.36 M/mm3 (4.2-5.4); White Blood Count 7.7 K/mm3 (4.4-11.0)
[2022-05-07 10:27] LABS: Erythrocyte Sedimentation Rate 7 mm/hr (0-30)
[2022-05-07 10:51] LABS: Hemoglobin A1c 5.9 % (3.8-5.6)
[2022-05-07 11:21] LABS: ALB/GLOB Ratio 1.1 RATIO (0.9-2.4); AST(SGOT) 16 U/L (15-37); Alanine Aminotransfer ALT/SGPT 28 U/L (13-56); Albumin, Serum 3.9 g/dL (3.2-5.0); Alkaline Phosphatase 98 U/L (45-117); Anion Gap 5 (5-15); BUN 14 mg/dL (7-18); BUN/Creat Ratio 16.9 RATIO (10-20); CRP < 2.90 mg/L (0.0-3.0); Calcium,Total 9.4 mg/dL (8.5-10.1); Chloride 108 mmol/L (98-107); Creatinine, Serum 0.83 mg/dL (0.55-1.02); EST Glomerular Filtration Rate 72 mL/min (>60); Est Glom Filt Rate - Afr Amer 87 mL/min (>60); Globulin 3.7 g/dL (2.2-4.2); Glucose 106 mg/dL (74-106); LDH 206 U/L (84-246); Potassium 4.2 mmol/L (3.5-5.1); Protein, Total 7.6 g/dL (6.4-8.2); Sodium Level 140 mmol/L (136-145); T4 Free Direct 1.02 ng/dL (0.76-1.46); Thyroid Stim Hormone (TSH) 2.05 uIU/mL (0.358-3.74)
[2022-05-10 15:08] LABS: Endomysial Antibody IgA Negative (Negative)
[2022-05-10 16:57] LABS: Immunoglobulin A 166 mg/dL (64-422); t-Transglutaminase IgA <2 U/mL (0-3)
[2022-05-13 01:07] LABS: Alternaria alternata <0.10 kU/L (Class 0); Aspergillus fumigatus <0.10 kU/L (Class 0); Bahia Grass <0.10 kU/L (Class 0); Beef <0.10 kU/L (Class 0); Bermuda Grass <0.10 kU/L (Class 0); Bluegrass, Kentucky <0.10 kU/L (Class 0); Cat Hair/Dander, Standard <0.10 kU/L (Class 0); Cedar, Mountain <0.10 kU/L (Class 0); Cladosporium herbarum <0.10 kU/L (Class 0); Cockroach, American <0.10 kU/L (Class 0); Corn <0.10 kU/L (Class 0); D farinae Mite <0.10 kU/L (Class 0); D pteronyssinus <0.10 kU/L (Class 0); Dog Epithelia <0.10 kU/L (Class 0); Egg, Whole 0.28 kU/L (Class 0/I); Elm, American White <0.10 kU/L (Class 0); Hazelnut Tree <0.10 kU/L (Class 0); Hickory, White <0.10 kU/L (Class 0); Johnson Grass <0.10 kU/L (Class 0); Maple/Box Elder <0.10 kU/L (Class 0); Milk (Cow) 0.32 kU/L (Class I); Mucor racemosus <0.10 kU/L (Class 0); Mugwort <0.10 kU/L (Class 0); Mulberry, White <0.10 kU/L (Class 0); Nettle <0.10 kU/L (Class 0); Oak, White <0.10 kU/L (Class 0); Peanut <0.10 kU/L (Class 0); Penicillium chrysogen <0.10 kU/L (Class 0); Pigweed, Rough <0.10 kU/L (Class 0); Plantain, English <0.10 kU/L (Class 0); Pork <0.10 kU/L (Class 0); Ragweed, Short/Common 0.12 kU/L (Class 0/I); Sheep Sorrel(Dock) <0.10 kU/L (Class 0); Soybean <0.10 kU/L (Class 0); Stemphylium herbarum <0.10 kU/L (Class 0); Sweet Gum <0.10 kU/L (Class 0); Sycamore, American <0.10 kU/L (Class 0); Wheat <0.10 kU/L (Class 0)
[2022-05-13 07:39] LABS: Anti-Mitochondrial AB <20.0 Units (0.0-20.0); Chocolate <0.10 kU/L (Class 0)
[2022-05-14 00:06] LABS: Angiotensin Convert Enzyme 52 U/L (14-82); Cytoplasmic Ab (C-ANCA) <1:20 titer (Neg:<1:20); HEPATITIS B SURFACE AG Negative (Negative); Hep C Antibodies <0.1 s/co ratio (0.0-0.9); Hepatitis A IgM Antibody Negative (Negative); Hepatitis B Core AB IgM Negative (Negative); Immunoglobulin A 164 mg/dL (64-422); Immunoglobulin E 104 IU/mL (6-495); Immunoglobulin G 999 mg/dL (586-1602)
[2022-05-14 06:07] LABS: Alternaria tenuis <0.10 kU/L (Class 0); Ash, White <0.10 kU/L (Class 0); Aspergillus fumigatus <0.10 kU/L (Class 0); Bermuda Grass <0.10 kU/L (Class 0); Birch <0.10 kU/L (Class 0); Black Walnut <0.10 kU/L (Class 0); Cat Hair / Dander,Stand <0.10 kU/L (Class 0); Cedar, Mountain <0.10 kU/L (Class 0); Cladosporium herbarum <0.10 kU/L (Class 0); Cockroach, American 0.13 kU/L (Class 0/I); Cottonwood <0.10 kU/L (Class 0); D farinae Mite <0.10 kU/L (Class 0); D pteronyssinus <0.10 kU/L (Class 0); Dog Epithelia <0.10 kU/L (Class 0); Elm, American White <0.10 kU/L (Class 0); Immunoglobulin E 95 IU/mL (6-495); Maple/Box Elder <0.10 kU/L (Class 0); Mulberry, White <0.10 kU/L (Class 0); Oak, White <0.10 kU/L (Class 0); Pecan <0.10 kU/L (Class 0); Penicillium Notatum <0.10 kU/L (Class 0); Pigweed, Rough <0.10 kU/L (Class 0); Ragweed, Short/Common 0.14 kU/L (Class 0/I); Russian Thistle <0.10 kU/L (Class 0); Sheep Sorrel <0.10 kU/L (Class 0); Sycamore, American <0.10 kU/L (Class 0); Timothy Grass <0.10 kU/L (Class 0)
[2022-05-14 08:53] LABS: Anti-Smooth Muscle ABS 7 Units (0-19); Immunoglobulin M 60 mg/dL (26-217); Mouse Urine <0.10 kU/L (Class 0); Perinuclear Ab (P-ANCA) <1:20 titer (Neg:<1:20)
== END | disposition home or self-care (01) ==
PROVIDERS: PCP Family Medicine; Referring Provider Internal Medicine Gastroenterology; Visit Provider Internal Medicine Gastroenterology
DX: K75.81 Nonalcoholic steatohepatitis (NASH) (principal); E11.9 Type 2 diabetes mellitus without complications; K58.9 Irritable bowel syndrome, unspecified; Z86.010 Personal history of colon polyps
CPT/HCPCS: 36415; 80053; 80074; 82164; 82784; 82785; 83036; 83516; 83615; 84439; 84443; 84481; 85025; 85652; 86003; 86005; 86140; 86255; 86256

== ENCOUNTER → 2022-05-21 | Outpatient (CLI) | payer MEDICARE, SELFPAY ==
--- NOTE | 2022-05-21 08:13 | US_ITS ---
STUDY: ABDOMINAL ULTRASOUND - ELASTOGRAPHY REASON FOR VISIT: Female, 71 years old. REARDON TECHNIQUE: Liver stiffness measurements were obtained on a [employer] RS 85 ultrasound machine using a CA 1-7 probe following the SRU guidelines. 3 measurements were obtained using a 2-D-SWE method. The IQR/M was 22 % suggesting a quality data set. TECHNICAL QUALITY: Adequate. COMPARISON: Comparison is made with prior study done earlier in the day. FINDINGS: Liver: Fatty infiltration of the liver. Median liver stiffness measured 5 kPa. US/Elastography Parenchyma/Organ IMPRESSION: Liver stiffness measures 5 kPa compatible with F0-F1 (Normal to mild liver fibrosis) Metavir score. Electronically Signed: Charlie Walker MD at 15:19 EST ,
--- NOTE | 2022-05-21 08:33 | US_ITS ---
STUDY: ABDOMINAL ULTRASOUND - RIGHT UPPER QUADRANT REASON FOR VISIT: Female, 71 years old REARDON TECHNIQUE: Ultrasound evaluation of the right upper quadrant was performed with real-time and static styles-scale imaging. TECHNICAL QUALITY: Adequate. COMPARISON: Comparison is made with prior study dated 07/08/2018. FINDINGS: Liver: The liver measures 14.1 cm. There is increased echogenicity consistent with fatty infiltration. The bile ducts are within normal limits. There is hepatic color flow. The direction of portal flow is hepatopetal. There is no demonstrated mass lesion. Gallbladder: Normal distended gallbladder. The gallbladder wall measures 2.5 mm. There is a negative sonographic Barrios''s sign. There is no pericholecystic fluid. There are no gallstones. Common Bile Duct (C.B.D.): The common bile duct measures 4.0 mm. Pancreas: Normal size of the head, body and tail of the pancreas. There is normal echogenicity of the pancreas. There is no demonstrated pancreatic mass or cyst. Right Kidney: Normal size of the right kidney. The right kidney measures 9.8 cm x 4.3 cm x 4.4 cm. Normal renal cortex. The right cortex measures 1.3 cm. There is no demonstrated renal mass or cyst. There is no right hydronephrosis. US/Abdomen Limited IMPRESSION: Fatty infiltration of the liver. Electronically Signed: Charlie Walker MD at 15:19 EST ,
== END | disposition home or self-care (01) ==
PROVIDERS: PCP Family Medicine; Visit Provider Internal Medicine Gastroenterology
DX: K75.81 Nonalcoholic steatohepatitis (NASH) (principal); K58.9 Irritable bowel syndrome, unspecified
CPT/HCPCS: 76705; 76981

== ENCOUNTER → 2022-05-26 | Outpatient (CLI) | payer MEDICARE, SELFPAY ==
--- NOTE | 2022-05-26 11:37 | NM_ITS ---
CLINICAL: 71-year-old female with history of clinical gastroparesis. SEMI-SOLID PHASE 99m Tc SULFUR COLLOID GASTRIC EMPTYING STUDY COMPARISON: None available FINDINGS: The patient was administered 1.1 mCi of 99m Tc sulfur colloid mixed with oatmeal and consumed per os. Image acquisitions in the anterior-posterior projections were obtained for 60 minutes. There is prompt visualization of the stomach. There is no gastroesophageal reflux identified. The T ? emptying was calculated to be 36.25 minutes, (Normal: 12-56 minutes). NM/Gastric Emptying Study IMPRESSION: 1. NORMAL 99m Tc sulfur colloid semi-solid phase (oatmeal) gastric emptying imaging examination. A. There is normal and preserved semi-solid phase gastric emptying compared to normal controls. (Brittanie et al, J Nucl Med Tech 38: 186, 2010). Electronically Signed: Sim Varela, at 23:13 EST ,
== END | disposition home or self-care (01) ==
PROVIDERS: PCP Family Medicine; Referring Provider Internal Medicine Gastroenterology; Visit Provider Internal Medicine Gastroenterology
DX: K31.84 Gastroparesis (principal); K75.81 Nonalcoholic steatohepatitis (NASH); K58.9 Irritable bowel syndrome, unspecified
CPT/HCPCS: 78264; A9541

== ENCOUNTER → 2022-09-09 | Outpatient (CLI) | payer MEDICARE, SELFPAY ==
--- NOTE | 2022-09-09 12:17 | MRI_ITS ---
EXAM: MR ABDOMEN WITHOUT INTRAVENOUS CONTRAST, MRCP PROTOCOL CLINICAL INDICATION: pancreatic divisum eval c/o choking, gas, vomitting TECHNIQUE: Multiplanar and multisequence MR images of the abdomen without intravenous contrast obtained with MRCP sequence. Three-dimensional post-processing reconstructions were performed. This report was created using [employer] report generation technology. COMPARISON: None. FINDINGS: LIMITATIONS: Limited by motion artifact. LOWER THORAX: Unremarkable. No pleural effusion. LIVER: Unremarkable. Normal morphology. GALLBLADDER AND BILE DUCTS: Unremarkable. No gallstones. No gallbladder distention or wall edema. No intra- or extrahepatic biliary ductal dilation. No choledochal filling defect. PANCREAS: Pancreatic divisum. No focal cystic mass. No pancreatic duct dilation. SPLEEN: Unremarkable. Non-enlarged. ADRENALS: Unremarkable. No nodules. KIDNEYS AND URETERS: Unremarkable. Normal renal size and position. No hydronephrosis. INTRAPERITONEAL SPACE: Unremarkable. No ascites or other fluid collection. BONES/JOINTS: Fusion hardware of the lumbar spine. VASCULATURE: Unremarkable. Abdominal aorta is non-dilated. LYMPH NODES: No enlarged lymph nodes. MRI/MRCP Abdomen without Contrast IMPRESSION: Pancreatic divisum. No ductal dilation/obstruction. Electronically Signed: Kalin Interiano (Brooks), at 14:17 EDT ,
== END | disposition home or self-care (01) ==
LOC: MRI 12:17
PROVIDERS: PCP Family Medicine; Referring Provider Internal Medicine Gastroenterology; Visit Provider Internal Medicine Gastroenterology
DX: Q45.3 Other congenital malformations of pancreas and pancreatic duct (principal)
CPT/HCPCS: 74181

== ENCOUNTER → 2023-02-03 | Outpatient (CLI) | payer OTHER, SELFPAY ==
--- NOTE | 2023-02-03 12:31 | BI_ITS ---
MAMMOGRAPHY - BILATERAL SCREENING REASON FOR EXAM: Female, 72 years old. Routine annual screening examination. PERTINENT HISTORY: Personal history of breast cancer. Prior left lumpectomy. Sister with breast cancer. Mother with breast cancer. TECHNIQUE: Digital bilateral breast maurice (3D mammographic acquisition) in the CC and MLO projections. 2-D mediolateral oblique (MLO) and craniocaudad (CC) views of both breasts were obtained. CAD: Full Field Digital Mammography with Computer Added Detection was performed. COMPARISON: Comparison is made with prior study February 02, 2022 and January 15, 2021. FINDINGS: Breast Composition: There are scattered areas of fibroglandular density. There are no dominant masses or suspicious calcifications. The patient is status post left lumpectomy with postoperative scarring in the upper lateral aspect of the left breast. Stable 4 mm well-defined nodule in the axillary region of the left breast suggests a small lymph node. No other significant abnormalities are identified. There has been no significant change since the prior study. BI/SCRN MAMM (CAD)W/MAURICE BILAT IMPRESSION: Stable bilateral screening mammogram. Yearly follow-up mammogram recommended. (A) ASSESSMENT CATEGORY: BIRADS Category 2: Benign. A letter regarding these results will be sent to the patient by the facility within 30 days. Approximately 10% of breast cancers are not detected by mammography. A normal mammogram should not delay biopsy of a clinically suspicious abnormality. [id number] Electronically Signed: Charlie Walker MD at 8:13 EDT ,
== END | disposition home or self-care (01) ==
LOC: OPBI 12:29
PROVIDERS: PCP Family Medicine; Referring Provider Family Medicine; Visit Provider Family Medicine
DX: Z12.31 Encounter for screening mammogram for malignant neoplasm of breast (principal)
CPT/HCPCS: 77063; 77067

== ENCOUNTER → 2023-08-05 | Outpatient (CLI) | payer OTHER, SELFPAY ==
--- OUTSIDE RECORDS SUMMARY | 2023-08-05 11:30 | XMS RPT_ITS | CCD ---
Author Name Unknown Address [address] [place] [address] Organization [facility] Care Team Providers Care Shared Services Representative Name Role Phone DR TIM DAVIS DO Primary Care Physician Unavailable Primary Care Provider UnavailTim Vega Primary Care Provider [phone] ADÁN MOTT Attending Unavailable JAELYN HAMILTON Referring Unavailable TIM DAVIS Primary Care Unavailable ADÁN MOTT Attending Unavailable SALIMA ALBRECHT Referring Unavailable TIM DAVIS Primary Care Unavailable TIM DAVIS Primary Care Unavailable Allergies Allergy Classification Reported Allergen(s) Allergy Type Date of Onset Reaction(s) Facility (2 sources) Adhesive Tape Allergy to substance [facility] Work Phone: (4 sources) busPIRone; Translations: [buspirone] Drug Allergy 3 hallucinations, hives, vomiting, [facility] Work Phone: (4 sources) Hmg-Coa Reductase Inhibitors (Statins); Translations: [statins] Drug allergy 3 [facility] Work Phone: (4 sources) Iodine; Translations: [iodine topical] Drug Allergy 3 [facility] Work Phone: (4 sources) Latex Allergy to substance 0 Other, [facility] Work Phone: (2 sources) NSAIDs; Translations: [NSAIDs] Drug allergy Nausea, [facility] Work Phone: (2 sources) narcotic analgesic 1; Translations: [narcotic analgesics] Drug allergy [facility] Work Phone: Medications Current Medications Medication Drug Class(es) Dates Sig (Normalized) Sig (Original) Albuterol (2 sources) beta2-Adrenergic Agonist Start: 04-23-2021 take 1 puff(s) by inhalation every four hours as needed for wheezing ProAir HFA MDI (90 mcg/inh) inhalation aerosol 1 puff(s), Inhalation, q4h, PRN as needed for wheezing, # 8.5 gram(s), 0 Refill(s) Start Date: 04/23/21 Status: Ordered Creon 6000 units oral delayed release capsule (2 sources) Start: 06-04-2020 take 1 capsule by mouth three times daily Creon 6000 units oral delayed release capsule 1 cap(s), Oral, TID, # 90 cap(s), 0 Refill(s) Start Date: 06/04/20 Status: Ordered fluticasone (1 source) Corticosteroid Start: 06-06-2020 take 1 dose by inhalation twice daily fluticasone propionate Dose : 50 mcg =, Inhalation, BID, 0 Refill(s) Start Date: 06/06/20 Status: Ordered fluticasone proprionate NASAL 50 mcg/ spray (1 source) Start: 05-01-2021 take 1 dose nasal route twice daily fluticasone proprionate NASAL 50 mcg/ spray Dose = 1 spray(s), Nostril, each, BID, 0 Refill(s) Start Date: 05/01/21 Status: Ordered loratadine 10 mg oral tablet (2 sources) Start: 06-06-2020 take 1 dose by mouth once daily Alavert Dose : 10 mg =, Oral, qDay, 0 Refill(s) Start Date: 06/06/20 Status: Ordered montelukast 10 mg oral tablet (2 sources) Leukotriene Receptor Antagonist Start: 06-04-2020 take 1 dose by mouth once daily Singulair Dose : 10 mg =, Oral, qDay, 0 Refill(s) Start Date: 06/04/20 Status: Ordered omeprazole 40 mg delayed release oral capsule (2 sources) Proton Pump Inhibitor Start: 06-04-2020 omeprazole 40 mg oral delayed release capsule Dose : 40 mg = 1 cap(s), Oral, qDay, # 30 cap(s), 0 Refill(s) Start Date: 06/04/20 Status: Ordered traMADol hydrochloride 50 mg oral tablet (1 source) Opioid Agonist Start: 04-30-2021 End: 05-07-2021 traMADol 50 mg oral tablet Dose : 50 mg = 1 tab(s), Oral, q6hr, PRN for pain, X 7 day(s), # 28 tab(s), 0 Refill(s), 05/07/21 7:24:00 EST, Pharmacy: [facility]/pharmacy #[id number], Spondylosis of lumbar spine, 165, cm, 04/30/21 6:41:00 EST, Height, 73.5, kg, 04/30/21 6:41:00 EST, Dosing Weight Start Date: 04/30/21 Stop Date: 05/07/21 Status: Ordered Vitamin D3 (2 sources) Start: 06-04-2020 Vitamin D3 Dose : 2,000 unit(s) = 1 tab(s), Oral, Daily, 0 Refill(s) Start Date: 06/04/20 Status: Ordered Problems Problem Classification Problem Date Documented Da te Episodic/Chronic Asthma (1 source) Asthma; Translations: [Unspecified asthma, uncomplicated] Onset: 1 Chronic Digestive congenital anomalies (1 source) Congenital malformation of pancreas; Translations: [Other congenital malformations of pancreas and pancreatic duct] Onset: 1 Chronic Esophageal disorders (1 source) Gastroesophageal reflux disease without esophagitis; Translations: [Gastro-esophageal reflux disease without esophagitis] Onset: 1 Chronic Osteoarthritis (3 sources) Arthritis of right foot; Translations: [Primary osteoarthritis, right ankle and foot] Onset: 3 01-21-2023 Chronic Other connective tissue disease (2 sources) Pain in right foot; Translations: [Pain in right foot] 12-30-2022 Episodic Other connective tissue disease (1 source) Plantar fasciitis; Translations: [Plantar fascial fibromatosis] 01-21-2023 Episodic Other connective tissue disease (2 sources) Plantar fascial fibromatosis; Translations: [Plantar fascial fibromatosis] Onset: 3 Episodic Other connective tissue disease (2 sources) Pain in right foot; Translations: [Pain in right foot] Onset: 3 Episodic Other gastrointestinal disorders (1 source) Irritable bowel syndrome; Translations: [Irritable bowel syndrome without diarrhea] Onset: 1 Chronic Spondylosis; intervertebral disc disorders; other back problems (1 source) Post-laminectomy syndrome; Translations: [Postlaminectomy syndrome, not elsewhere classified] Onset: 1 Chronic Results Test Name Value Interpretation Reference Range Facil ity Vital Signs Date Time Vital Sign Value Performing Clinician Claudette lithoward 01-21-2023 14:40-0400 Body height 165.1 cm Adán Mott MD Work Phone: [facility] 01-21-2023 14:40-0400 Body mass index (BMI) [Ratio] 27.29 kg/m2 Adán Mott MD Work Phone: [facility] 01-21-2023 14:40-0400 Body weight 74.39 kg Adán Mott MD Work Phone: [facility] 01-21-2023 14:40-0400 Diastolic blood pressure 80 mm[Hg] Adán Mott MD Work Phone: [facility] 01-21-2023 14:40-0400 Heart rate 70 /min Adán Mott MD Work Phone: [facility] 01-21-2023 14:40-0400 Systolic blood pressure 134 mm[Hg] Adán Mott MD Work Phone: [facility] 05-01-2021 11:42-0500 Body temperature 97.88 [degF] ADÁN MASTERS DO [facility] 05-01-2021 11:42-0500 Diastolic blood pressure 66 mm[Hg] ADÁN MASTERS DO [facility] 05-01-2021 11:42-0500 Heart rate 74 /min ADÁN MASTERS DO [facility] 05-01-2021 11:42-0500 Reason For Taking VItal Signs ADÁN MASTERS DO [facility] 05-01-2021 11:42-0500 Respiratory rate 18 /min ADÁN MASTERS DO [facility] 05-01-2021 11:42-0500 Systolic blood pressure 109 mm[Hg] ADÁN MASTERS DO [facility] 05-01-2021 07:29-0500 Body temperature 97.16 [degF] ADÁN MASTERS DO [facility] 05-01-2021 07:29-0500 Diastolic blood pressure 60 mm[Hg] ADÁN MASTERS DO [facility] 05-01-2021 07:29-0500 Heart rate 67 /min ADÁN MASTERS DO [facility] 05-01-2021 07:29-0500 Reason For Taking VItal Signs ADÁN MASTERS DO [facility] 05-01-2021 07:29-0500 Respiratory rate 18 /min ADÁN MASTERS DO [facility] 05-01-2021 07:29-0500 Systolic blood pressure 111 mm[Hg] ADÁN MASTERS DO [facility] 05-01-2021 04:41-0500 Body temperature 97.7 [degF] ADÁN MASTERS DO [facility] 05-01-2021 04:41-0500 Diastolic blood pressure 60 mm[Hg] ADÁN MASTERS DO [facility] 05-01-2021 04:41-0500 Heart rate 76 /min ADÁN MASTERS DO [facility] 05-01-2021 04:41-0500 Respiratory rate 18 /min ADÁN MASTERS DO [facility] 05-01-2021 04:41-0500 Systolic blood pressure 94 mm[Hg] ADÁN MASTERS DO [facility] 04-30-2021 19:55-0500 Reason For Taking VItal Signs ADÁN MASTERS DO [facility] 04-30-2021 11:39-0500 Body height 165 cm ADÁN MASTERS DO [facility] 04-30-2021 11:39-0500 Body weight 73.5 kg ADÁN MASTERS DO [facility] 04-30-2021 11:39-0500 Body weight 27 kg/m2 ADÁN MASTERS DO [facility] 04-30-2021 11:37-0500 Diastolic Blood Pressure NBP 65 1 ADÁN MASTERS DO [facility] 04-30-2021 11:37-0500 Systolic Blood Pressure NBP 107 1 ADÁN MASTERS DO [facility] 04-30-2021 11:15-0500 Diastolic Blood Pressure NBP 60 1 ADÁN MASTERS DO [facility] 04-30-2021 11:15-0500 Systolic Blood Pressure NBP 108 1 ADÁN MASTERS DO [facility] 04-30-2021 11:00-0500 Diastolic Blood Pressure NBP 62 1 ADÁN MASTERS DO [facility] 04-30-2021 11:00-0500 Systolic Blood Pressure NBP 104 1 ADÁN MASTERS DO [facility] 04-30-2021 09:55-0500 Body temperature 96.98 [degF] ADÁN MASTERS DO [facility] 04-30-2021 09:35-0500 Body temperature 96.21 [degF] ADÁN MASTERS DO [facility] 04-30-2021 09:30-0500 Body temperature 96.19 [degF] ADÁN MASTERS DO [facility] 04-30-2021 09:25-0500 Body temperature 96.13 [degF] ADÁN MASTERS DO [facility] 04-30-2021 06:36-0500 Body height 165 cm ADÁN MASTERS DO [facility] 04-30-2021 06:36-0500 Body temperature 98.06 [degF] ADÁN MASTERS DO [facility] 04-30-2021 06:36-0500 Body weight 73.5 kg ADÁN MASTERS DO [facility] 04-30-2021 06:36-0500 Heart rate 68 /min ADÁN MASTERS DO [facility] 04-23-2021 09:13-0400 Body height 165.1 cm ADÁN MASTERS DO [facility] 04-23-2021 09:13-0400 Body weight 73.5 kg ADÁN MASTERS DO [facility] 04-23-2021 09:13-0400 diastolic 72 mm[Hg] ADÁN MASTERS DO [facility] 04-23-2021 09:13-0400 Heart rate 69 /min ADÁN MASTERS DO [facility] 04-23-2021 09:13-0400 systolic 116 mm[Hg] ADÁN MASTERS DO [facility] Encounters Encounter Date Encounter Type Care Provider Facility Start: 01-21-2023 End: 01-22-2023 ambulatory ADÁN MOTT [facility] Start: 01-21-2023 End: 01-21-2023 Office outpatient new 45 minutes Adán Mtot MD Work Phone: [facility] Procedures Date Procedure Procedure Detail Performing Clinician Start: 02-02-2022 Mammography Adán aguilar MD Work Phone: Start: 06-06-2020 Manipulation ADÁN LWOE DO Plan of Treatment Date Care Activity Detail Author Start: 02-18-2023 Influenza vaccination Influenza Vaccine (#1) [facility] Start: 02-02-2023 Screening for malignant neoplasm of breast Mammogram [facility] Start: 01-21-2023 End: 01-21-2023 Patient encounter procedure 01/21/2023 2:30 PM EDT Office Visit [facility] [address] [place] [phone] Adán Mott MD [address] [facility] [address] [place] [id number] [facility] Start: 01-21-2023 End: 01-21-2023 Documentation procedure 01/21/2023 2:00 PM EDT Documentation [facility] [address] [place] [phone] [facility] Start: 01-21-2023 End: 12-31-2023 XR Foot - right 3 Views [facility] Work Phone: Immunizations Immunization Date Immunization Notes Care Provider Fa cility 09-10-2020 COVID-19, mRNA, LNP- S, PF, 100 mcg/ 0.5 mL dose; Translations: [Moderna COVID-19 Vaccine] ADÁN MASTERS DO [facility] 08-13-2020 COVID-19, mRNA, LNP- S, PF, 100 mcg/ 0.5 mL dose; Translations: [Moderna COVID-19 Vaccine] ADÁN MASTERS DO [facility] Payers Date Payer Category Payer Medicare [employer] MEDICARE ADVANTAGE [id number] 2022-Present [address] [place] [address] Medicare HMO [id number] 2022 Medicare [id number] Social History Date Type Detail Facility Start: 06-04-2020 End: 01-21-2023 Never smoked tobacco (finding) [facility] Sex Assigned At Female [facility] Tobacco smoking stat [facility] Tobacco smoking consumption unknown [facility] Start: 1950 Sex Assigned At Not on file [facility] Start: 01-21-2023 Gender identity Not on file [facility] Start: 01-21-2023 Tobacco use and exposure Smokeless tobacco non-user [facility] Start: 01-21-2023 History of Social function [facility] Start: 01-11-2023 End: 01-21-2023 Exposure to SARS-CoV-2 (event) Not sure [facility] History of Present illness Narrative 01-21-2023 Adán Mott MD - 01/21/2023 2:30 PM EDT Note Date & Type Note Facility 01-21-2023 History of Presen t illness Narrative Images from the original note were not included. [facility] [address] [place] [phone] Dept: [phone] Dept Keyla Atwood 1950 [id number] 01/21/2023 HISTORY OF PRESENT ILLNESS: Keyla is a 72 y.o. female here today for evaluation of her right foot Keyla states the problem has been present for about 3 months Keyla states the problem started gradually with no injuries occurring. She started having pain in her heel, but over the past few weeks it has moved to her dorsal foot. She does report a history of fracture in the foot when she was younger. Has pain across the forefoot, shooting pains at night, pain throughout the arch at time Keyla has tried or has been treated with the following: custom molded foot orthoses that are 20 years old. Is in physical therapy for other issues Review of Systems Surgical Risk Factors: Allergies to Metals or Latex: Latex Have you been treated for a blood clot: NO Have you had a history of bleeding disorder: NO Have you had a history of Anesthetic problems: NO Do you have tendency to bruise easily: NO Do you experience prolonged or excessive bleeding from cuts or after surgery: NO General/Constitutional: General: no Cancer: hx breast cancer Acute/Chronic Infections: NO HEENT/Neck: Problems with theThroat: NO Problems with the Eyes: NO Problems with the Ears: NO Problems with the Nose and Sinuses: NO Endocrine: Problems with Diabetes: NO Problems with Thyroid Disorder: NO Thorax: Problems with the Heart: NO Problems with the Lung: no Cardiovascular: Problems with Circulation: NO Problems with High Blood pressure: NO Gastrointestinal: Problems with Ulcers: NO Problems with the Liver: no Problems with Bowel Habits: NO Genitourinary: Problems with the Genitals: NO Urinary problems: NO Kidney disease or stones: NO Skin: Any general problems: NO Neurologic: Dizziness, blurred vision, headaches, problems with balance : NO Seizures or Stroke: NO Psychiatric: Emotional or Psychological disorders: NO Depression or Anxiety: no PAST MEDICAL HISTORY: No past medical history on file. Allergies Allergen Reactions Buspirone Hydrocodone Nausea And Vomiting Statins Iodine Rash Latex Other and Rash Wound Dressing Adhesive Rash PHYSICAL EXAM: BP 134/80 Pulse 70 Ht 5' 5 (1.651 m) Wt 164 lb (74.4 kg) BMI 27.29 kg/m This is an age appropriate appearing female who is alert and oriented x 3. The patient appears well nourished. Psychiatric: The patient is able to verbalize normally and seems to have a good understanding of her situation. right lower extremity examination Lymphatic System: No areas of swelling are seen Vascular: Dorsalis pedis pulse: 2+ Posterior tibial pulse: 2+ Capillary refill is less than 3 seconds Skin/nails: Normal appearance, warm and dry Hair growth present on foot and toes Neurologic: Sensation intact to light touch throughout the foot and the ankle Muscle: Muscle strength testing: Anterior tibialis: 5/5 Posterior tibialis: 5/5 Peroneus brevis: 5/5 Peroneus longus: 5/5 Gastrocsoleus: 5/5 Tender over 2nd TMT joint, heel Gait and Station: Keyla is able to ambulate with a normal gait Keyla is able to stand unassisted and maintains balance RADIOGRAPHIC INTERPRETATION: 3 weight bearing views of the Right foot were obtained and the following is my interpretation of the findings present of the X-rays: 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 No acute fractures or dislocations noted. Longitudinal arch height is maintained. REVIEW OF RELATED PREVIOUS DOCUMENTATION: No documents related to the current problem(s) were reviewed or no documents were available for review. LABORATORY RESULT INTERPRETATION: No labs were reviewed/No labs available for review DIAGNOSIS: Diagnosis Plan 1. Plantar fasciitis Amb[facility] 2. Arthritis of foot, right Ambulatory referral to [facility] MEDICAL DECISION MAKING: I had a discussion with Keyla to make sure she has a good understanding of the diagnoses/issues that I think are present today and understands the plan moving forward. 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 Keyla was given a prescription for a custom molded foot orthosis for longitudinal arch support today. I explained that once she gets the orthosis she needs to increase daily wear one hour per day until she is using it time recorder. I explained that there can be risks associated with the use of a foot orthosis. I explained that a foot orthosis can lead to other problems both in the foot and in the lower extremity that are at times unanticipated. If the orthosis is uncomfortable or makes her problem worse, or if she develops another problem as a result of the orthosis then she needs to have it adjusted by the hadoop admin. If Keyla has any other questions pertaining to orthosis they were told to call me. I explained to Keyla that a medicated compound cream may relieve some of her symptoms. I explained that like any prescription medication side effects can occur with the cream. Most of these are mild and self limited but in a small percent of individuals more severe reactions are possible. I explained that if she has any reactions to the compound medication she needs to wash the compound off and call the office immediately. A prescription for the medicated compound cream was sent to [facility] and a scanned copy of the prescription is in the media section of her chart. She is already in physical therapy for other issues but we discussed they can work with her on her feet as well. I explained if the cream and the orthotics do not provide enough relief, she should contact the office and we will get her set up with one of the sports medicine physicians to get ultrasound guided injections of the 2nd TMT joint and the plantar fascia. Follow up if symptoms worsen or fail to improve, for Call if you would like to be set up for the injections. Electronically signed by Adán Mott MD [facility] Department of Orthopedic surgery 01/21/2023 5:26 PM Voice recognition was used for portions of this note and although it was reviewed prior to signing some incorrect words or phrases could be present. documented in this encounter [facility] Instructions 01-21-2023 Patient Instructions Note Date & Type Note Facility 01-21-2023 Instructions EDIN Sebastian - 01/21/2023 2:30 PM EDT The medicated compound cream is specially made in-house by [facility] in [place], so while this pharmacy may not be your regular pharmacy, this is the location that it is made at. Their contact information is below if there are any questions regarding the cream. [facility] [address] [place] [phone] Phone: Fax: [email or web address] documented in this encounter [facility] Discharge instructions 05-01-2021 Note Date & Type Note Facility 05-01-2021 Hospital Discharg e instructions Patient Education 05/01/2021 11:33:07 Laminectomy, Care After Laminectomy, Care After This sheet gives you information about how to care for yourself after your procedure. Your health care provider may also give you more specific instructions. If you have problems or questions, contact your health care provider. What can I expect after the procedure? After the procedure, it is common to have: Some pain around your incision area. Muscle tightening (spasms) across the back. Follow these instructions at home: Incision care Follow instructions from your health care provider about how to take care of your incision area. Make sure you: ?Wash your hands with soap and water before and after you apply medicine to the area or change your bandage (dressing). If soap and water are not available, use hand sales planner. ?Change your dressing as told by your health care provider. ?Leave stitches (sutures), skin glue, or adhesive strips in place. These skin closures may need to stay in place for 2 weeks or longer. If adhesive strip edges start to loosen and curl up, you may trim the loose edges. Do not remove adhesive strips completely unless your health care provider tells you to do that. Check your incision area every day for signs of infection. Check for: ?More redness, swelling, or pain. ?More fluid or blood. ?Warmth. ?Pus or a bad smell. Medicines Take vmvb-pbl-[id number] and prescription medicines only as told by your health care provider. If you were prescribed an antibiotic medicine, use it as told by your health care provider. Do not stop using the antibiotic even if you start to feel better. Bathing Do not take baths, swim, or use a hot tub for 2 weeks, or until your incision has healed completely. If your health care provider approves, you may take showers after your dressing has been removed. Activity Return to your normal activities as told by your health care provider. Ask your health care provider what activities are safe for you. Avoid bending or twisting at your waist. Always bend at your knees. Do not sit for more than 20 30 minutes at a time. Lie down or walk between periods of sitting. Do not lift anything that is heavier than 10 lb (4.5 kg) or the limit that your health care provider tells you, until he or she says that it is safe. Do not drive for 2 weeks after your procedure or for as long as your health care provider tells you. Do not drive or use heavy machinery while taking prescription pain medicine. General instructions To prevent or treat constipation while you are taking prescription pain medicine, your health care provider may recommend that you: ?Drink enough fluid to keep your urine clear or pale yellow. ?Take uaxr-cin-feffjaa or prescription medicines. ?Eat foods that are high in fiber, such as fresh fruits and vegetables, whole grains, and beans. ?Limit foods that are high in fat and processed sugars, such as fried and sweet foods. Do breathing exercises as told. Keep all follow-up visits as told by your health care provider. This is important. Contact a health care provider if: You have more redness, swelling, or pain around your incision area. Your incision feels warm to the touch. You are not able to return to activities or do exercises as told by your health care provider. Get help right away if: You have: ?More fluid or blood coming from your incision area. ?Pus or a bad smell coming from your incision area. ?Chills or a fever. ?Episodes of dizziness or fainting while standing. You develop a rash. You develop shortness of breath or you have difficulty breathing. You cannot control when you urinate or have a bowel movement. You become weak. You are not able to use your legs. Summary After the procedure, it is common to have some pain around your incision area. You may also have muscle tightening (spasms) across the back. Follow instructions from your health care provider about how to care for your incision. Do not lift anything that is heavier than 10 lb (4.5 kg) or the limit that your health care provider tells you, until he or she says that it is safe. Contact your health care provider if you have more redness, swelling, or pain around your incision area or if your incision feels warm to the touch. These can be signs of infection. This information is not intended to replace advice given to you by your health care provider. Make sure you discuss any questions you have with your health care provider. Document Released: 12/24/2005 Document Revised: 05/19/2018 Document Reviewed: 11/21/2016 [employer] Patient Education 2020 [employer]. Follow Up Care 04/17/2021 15:03:04 With:Homes Meds - Patient had home medication brought in. Please send home with patient. Address:Unknown When: Unknown With:ADÁN MASTERS DO, Orthopedic Address: [address] [place] [address], [address] [facility] [place] [address]- [phone] When:05/20/2021 09:45:00 Comments:Follow-up as scheduled [facility] Evaluation + Plan note Note Date & Type Note Facility Evaluation + Plan note Future Appointments [facility] Evaluation note Note Date & Type Note Facility documented in this encounter [facility] Evaluation note Note Date & Type Note Facility documented in this encounter [facility] Evaluation note Note Date & Type Note Facility documented in this encounter [facility] course Narrative Note Date & Type Note Facility Hospital course Narrative No data available for this section [facility] Hospital Discharge instructions Note Date & Type Note Facility Hospital Discharge instructions No data available for this section [facility] Reason for referral (narrative) Consultation (Routine) - Pending Review Note Date & Type Note Facility Referral ID Status Reason Start Date Expiration Date Visits Requested Visits Authorized [id number] Pending Review Specialty Services Required 01/21/2023 01/21/2024 1 1 [facility] Summary Purpose Family History No Family History Records FoundNo Family History Records Found Advance Directives No Advanced Directives Records FoundNo Advanced Directives Records Found Additional Source Comments INFORMATION SOURCE (unrecogn ized section and content) DATE CREATED AUTHOR AUTHOR'S ORGANIZ ATION 01/25/2023 [facility] Reason for Visit (unrecogniz ed section and content) Specialty Diagnoses / Procedures Referred By Contac t Referred To Contact Orthopedic Surgery Diagnoses right foot pain Procedures [place] OFFICE/OUTPATIENT NEW MODERATE MDM 45-59 MINUTES Salima Albrecht MD [address] [place] [address] Adán Mott MD [address] [facility] [address] [place] [address] Referral ID Status Reason Start Date Expiration Date V isits Requested Visits Authorized [id number] Pending Review 12/30/2022 12/30/2023 1 1 Care Teams (unrecognized sec tion and content) Shared Services Representative Relationship Specialty Start Date End Date Tim Davis [address] [place] [address] PCP - General Family Medicine 01/20/23 FOR RECORDS PERTAINING TO PATIENTS WHO ARE OR HAVE BEEN ENROLLED IN A CHEMICAL DEPENDENCY/SUBSTANCEABUSE PROGRAM, SOME INFORMATION MAY BE OMITTED. This clinical summary was aggregated from multiple sources. Caution should be exercised in using it in the provision of clinical care. This summary normalizes information from multiple sources, and as a consequence, information in this document may materially change the coding, format and clinical context of patient data. In addition, data may be omitted in some cases. CLINICAL DECISIONS SHOULD BE BASED ON THE PRIMARY CLINICAL RECORDS. [email or web address] provides no warranty or guarantee of the accuracy or completeness of information in this document.
[2023-08-05 15:52] LABS: Absolute Lymphocyte Count 1.95 X10^3/uL (0.83-4.51); Absolute Neutrophil Count 5.6 X10^3/uL (2.0-7.7); Basophil# 0.07 X10^3/uL; Basophil% 0.8 % (0-1); Eosinophil# 0.14 X10^3/uL; Eosinophils% 1.6 % (0-5); Hematocrit 39.2 % (37-47); Hemoglobin 12.5 g/dL (12.0-15.0); Lymphocyte # 1.95 X10^3/ul (0.83-4.51); Lymphocyte % 22.9 % (19-41); Mean Corp Hgb Conc 31.9 g/dL (32-36); Mean Corpuscular Hgb 31.1 pg (27.0-32.0); Mean Corpuscular Volume 97.5 fL (81-99); Mean Platelet Vol. 11.5 fl (6.2-12.0); Monocyte# 0.77 X10^3/uL; NRBC Flagged by Analyzer 0 % (0-5); Neutrophil # 5.55 X10^3/uL (2.7-7.7); Neutrophil % 65.2 % (47-70); Platelet Count 248 K/mm3 (150-450); RBC Distribution Width SD 46.5 fl (35.1-43.9); Red Blood Count 4.02 M/mm3 (4.2-5.4); White Blood Count 8.5 K/mm3 (4.4-11.0)
[2023-08-05 16:40] LABS: ALB/GLOB Ratio 1.1 RATIO (0.9-2.4); AST(SGOT) 17 U/L (15-37); Alanine Aminotransfer ALT/SGPT 31 U/L (13-56); Albumin, Serum 3.8 g/dL (3.2-5.0); Alkaline Phosphatase 85 U/L (45-117); Anion Gap 4 (5-15); BUN 18 mg/dL (7-18); BUN/Creat Ratio 20.3 RATIO (10-20); Calcium,Total 9.2 mg/dL (8.5-10.1); Chloride 109 mmol/L (98-107); Cholesterol 236 mg/dL (200); Creatinine, Serum 0.89 mg/dL (0.55-1.02); EST Glomerular Filtration Rate 66 mL/min (>60); Est Glom Filt Rate - Afr Amer 80 mL/min (>60); Globulin 3.4 g/dL (2.2-4.2); Glucose 86 mg/dL (74-106); High Density Lipoprotein 69 mg/dL; Potassium 4.1 mmol/L (3.5-5.1); Protein, Total 7.2 g/dL (6.4-8.2); Sodium Level 141 mmol/L (136-145); Triglycerides 82 mg/dL; Very Low Density Lipoprotein 16 mg/dL (5-40)
== END | disposition home or self-care (01) ==
LOC: BFHLAB 11:12
PROVIDERS: PCP Family Medicine; Visit Provider Family Medicine
DX: I10 Essential (primary) hypertension (principal); E78.5 Hyperlipidemia, unspecified; R73.01 Impaired fasting glucose
CPT/HCPCS: 36415; 80053; 80061; 83036; 85025

== ENCOUNTER 2023-12-16 07:17 | Day surgery (SDC) | payer MEDICARE, SELFPAY ==
[2023-12-16 07:32] VITALS: BP 159/94; PULSE 78; RESP 16; TEMP 35.9; O2SAT 100
[2023-12-16] MEDS: Lidocaine Jelly 2% 20 ML Syringe (URO-JET) 1 APPLIC (07:35)
== END 2023-12-16 07:53 | disposition home or self-care (01) ==
PROVIDERS: PCP Family Medicine; Referring Provider Family Medicine; Visit Provider Internal Medicine Gastroenterology
PROC: F00ZJWZ Instrumental Swallowing and Oral Function Assessment using Swallowing Equipment (ICD-10-PCS; CPT 43235; principal; 2023-12-16 07:25)
DX: Z53.8 Procedure and treatment not carried out for other reasons (principal)
CPT/HCPCS: 91010

== ENCOUNTER → 2024-01-20 | Outpatient (CLI) | payer MEDICARE, SELFPAY ==
--- NOTE | 2024-01-20 13:55 | ST.MBS ---
Modified Barium Swallow Patient Information Study Date: 01/20/24 Study Time: 13:00 Direct Billable Minutes: 100 Total Minutes procedure & reportin Diagnosis: Dysphagia R13.10 Referring Physician: José Miguel Nguyen Reason for Referral: Objectively assess swallow function, assess risk for aspiration, and determine recommendations for least restrictive diet textures and compensatory strategies to improve safety of swallow. Medical History: PMH: exocrine pancreatic insufficiency, GERD, dysphagia, pancreas divisum, bloating, arthritis, asthma, breast cancer, constipation, diarrhea, HLD, HTN, osteopenia. Patient is following with psychiatric clinical nurse specialist, Dr. Nguyen, for management of exocrine pancreatic insufficiency, GERD, dysphagia, pancreas divisum, and bloating. She is on an anti-reflux diet, is managing reflux with medication, and has a small hiatal hernia. Per patient, esophageal manometry was attempted, but the patient was unable to tolerate passing the manometer through her nose. She was referred for MBSS to further assess complaints for intermittent esophageal dysphagia. Per patient report, she is having bouts of random coughing. She feels like something is caught in her throat most of the time, but this sensation is worse in the morning. She seldom feels her throat is clear. At random times, she feels like something is going down the wrong way in her throat. Food and drink will go down well during the initial swallow, but then she will start coughing and feel like something is trying to go down the wrong way. Current Diet Ordered: Regular textures / Thin liquids Dentition: WNL and Natural Teeth Mental Status: WNL Respiratory Status: Oxygenating on Room Air Penetration-Aspiration Scale Penetration-Aspiration Scale: OBJECTIVE ASSESSMENT OF SWALLOW FUNCTION (QUANTITATIVE ? PER TRIAL): PENETRATION / ASPIRATION SCALE (DUEÑAS): 1 = does not enter airway 2 = enters airway/above vocal folds/ejected 3 = enters airway/above vocal folds/not ejected 4 = enters airway/contacts vocal folds/ejected 5 = enters airway/contacts vocal folds/not ejected 6 = enters airway/below vocal folds/ejected 7 = enters airway/below vocal folds/not ejected despite effort 8 = enters airway/below vocal folds/no effort VIDEOFLOROSCOPIC SCALE SCORE (DUEÑAS): Grade I = aspiration of material that has penetrated into the laryngeal vestibule, intact cough reflex Grade II = aspiration < 10 % of the bolus, intact cough reflex Grade III = aspiration of < 10 % of the bolus, reduced cough reflex or aspiration of > 10 % of the bolus, intact cough reflex Grade IV = aspiration of > 10 % of the bolus, reduced cough reflex Penetration-Aspiration Scale Score Thin Liquid via teaspoon: Result: 1= does not enter airway Thin Liquid via teaspoon Trial 2: Result: 1= does not enter airway Thin Liquid via small single sip: cup: Result: 1= does not enter airway Thin Liquid via sequential sips: cup: Result: 1= does not enter airway Comment: Esophageal screen - Retention in the lower esophagus with retrograde flow to the mid esophagus. [place] Thick Liquid via large single sip: cup: Result: 1= does not enter airway Pudding via teaspoon: Result: 1= does not enter airway Comment: Esophageal screen - Retention throughout the esophagus. Thin Liquid via single sip: straw: Result: 1= does not enter airway Comment: Esophageal screen - Somewhat effective in clearing pudding residue. When taking a second liquid wash during the esophageal screen, patient had retention with retrograde flow of thin barium in the lower esophagus. 1/2 Cookie: Result: 1= does not enter airway Comment: Esophageal screen - Retention throughout the esophagus. Liquid wash was effective in clearing barium cookie. Oral Phase Labial Seal: No Labial Escape Tongue Control During Bolus Hold: Cohesive bolus between tongue to palatal seal Bolus Preparation/Mastication: Timely and efficient chewing and mashing Bolus Transport/Lingual Motion: Brisk tongue motion Oral Residue: Trace residue lining oral structures Pharyngeal Phase Initiation of Pharyngeal Swallow: Bolus head in valleculae Soft Palate Elevation: Trace column of contrast/air between soft palate and pharyngeal wall Laryngeal Elevation: Comp. Superior move thyroid cart w/comp. apprx arytenoid cart-epig pet Anterior Hyoid Excursion: Partial anterior movement Epiglottic Movement: Complete inversion Laryngeal Vestibule Closure at Height of Swallow: Complete; no air/contrast in laryngeal vestibule Pharyngeal Stripping Wave: Present - diminished Pharyngoesophageal Segment Opening: Complete distension and complete duration; no obstruction of flow Tongue Base Retraction: Narrow column of contrast between tongue base & post. pharyngeal wall Pharyngeal Residue: Collection of residue within or on pharyngeal structures Esophageal Phase Esophageal Clearance: Esophageal retention w/ retrograde flow below pharyngoesophageal seg. Diagnosis/Impression Diagnosis: Esophageal dysphagia R13.14 Impression: The oral and pharyngeal phases of the swallow were grossly WNL. Pt had timely and complete mastication, good oral containment, and good oral clearance of all trials. Swallow onset was timely. Patient had mildly decreased tongue base retraction and pharyngeal contraction with pudding with mild oral residue, but the patient fully cleared mild residue with independent initiation of a second swallow. She demonstrated good airway closure with no laryngeal penetration or aspiration during the evaluation. The esophageal phase is primarily marked by... -Esophageal retention of cookie and pudding throughout the esophagus. Liquid wash effectively cleared cookie and somewhat cleared pudding. Patient does have some retention of liquids in the lower esophagus with retrograde flow. The patient is at risk for reflux aspiration. Recommendations Diet: Regular Textures and Thin Liquids Comment: STOP eating/drinking if increased s/s of reflux, sensation of retention, or regurgitation and resume at a later time. Compensatory Strategies: Small Bites, Small Sips, Slow Rate, Alternate bites/solids and sips/liquids (1:1 Ratio), Sitting upright and Remain sitting upright for 30 minutes after PO intake (60 min) Recommend Repeat Modified Barium Swallow: No Need for Skilled Speech Therapy Services: No Recommended Referrals: GI Consult (Continue to follow with Dr. Nguyen re: esophageal dysphagia) Education Completed: 1. Described result of evaluation. Status Active ST Patient: Active Contact Information [facility] Speech Therapy:: Yomaira Villeda M.A. [facility]-STRATEGY PLANNING CONSULTANT? Speech-Language Pathologist?? [facility] [address] [place] [address]? [email or web address]?? [phone]
== END | disposition home or self-care (01) ==
LOC: RAD 12:45
PROVIDERS: PCP Family Medicine; Referring Provider Internal Medicine Gastroenterology; Visit Provider Internal Medicine Gastroenterology
DX: R13.10 Dysphagia, unspecified (principal)
CPT/HCPCS: 74230; 92611

== ENCOUNTER → 2024-02-08 | Outpatient (CLI) | payer MEDICARE, SELFPAY ==
--- NOTE | 2024-02-08 08:36 | BI_ITS ---
MAMMOGRAPHY - BILATERAL SCREENING REASON FOR EXAM: Female, 73 years old. Routine annual screening examination. PERTINENT HISTORY: Personal history of breast cancer. Prior left lumpectomy and radiation. Sister with breast cancer. Mother with breast cancer. TECHNIQUE: Digital bilateral breast maurice (3D mammographic acquisition) in the CC and MLO projections. 2-D mediolateral oblique (MLO) and craniocaudad (CC) views of both breasts were obtained. CAD: Full Field Digital Mammography with Computer Added Detection was performed. COMPARISON: Comparison is made with prior study dated February 03, 2023 and February 02, 2022. FINDINGS: Breast Composition: There are scattered areas of fibroglandular density. The patient is status post lumpectomy in the left upper outer quadrant. Stable 6.7 mm nodule in the retroareolar region of the right breast suggestive of a small lymph node. No other significant abnormalities are identified. There has been no significant change since the prior study. BI/SCRN MAMM (CAD)W/MAURICE BILAT IMPRESSION: Stable bilateral screening mammogram. Yearly follow-up mammogram recommended. (A) ASSESSMENT CATEGORY: BIRADS Category 2: Benign. A letter regarding these results will be sent to the patient by the facility within 30 days. Approximately 10% of breast cancers are not detected by mammography. A normal mammogram should not delay biopsy of a clinically suspicious abnormality. [id number] Electronically Signed: Charlie Walker MD at 10:54 EDT ,
== END | disposition home or self-care (01) ==
LOC: OPBI 08:35
PROVIDERS: PCP Family Medicine; Referring Provider Family Medicine; Visit Provider Family Medicine
DX: Z12.31 Encounter for screening mammogram for malignant neoplasm of breast (principal)
CPT/HCPCS: 77063; 77067

== ENCOUNTER 2024-08-09 07:31 | Day surgery (SDC) | payer MEDICARE, SELFPAY ==
[2024-08-09] VITALS (9 sets, daily range): BP systolic 106–146; BP diastolic 57–87; PULSE 60–88; RESP 16–18; TEMP 36.3–36.8; O2SAT 91–100; BMI 25.3
--- NOTE | 2024-08-09 08:22 | PCM.PRE.AN2 ---
ASA Classification* ASA Classification ASA Classification: 2 Assessment & Plan Anesthesia* Anesthesia Assessment Anesthesia Assessment: Discussed sedation and/or anesthesia options, risks, benefits, and alternatives with patient/parents/legal guardian/POA. Questions invited. The patient/parents/legal guardian/POA seems to understand and agrees to proceed with anesthesia plan. Reviewed the physical assessment, medical history, allergy history and patient home medications list prior to surgery/procedure/anesthetic and documented any changes. Performed airway and anesthesia risk assessments. Anesthesia Type Anesthesia Type: MAC History Source History Obtained from:: Patient and Chart Anesthesia Focused Assessment* Temperature: 98.3 F Pulse Rate: 88 Blood Pressure: 146/87 Respiratory Rate: 16 Pulse Ox: 100 Oxygen Delivery Method: Room Air Airway Assessment Mouth opens: >3 cm Mallampati Score: II Teeth Condition: Intact (bridges) Neck Range of motion (ROM): Full ROM Focused Labs Anesthesia Preop lab: CBC WBC 8.5 K/mm3 (4.4-11.0) 08/05/23 11:13 08/05/23 RBC 4.02 M/mm3 (4.2-5.4) L 08/05/23 11:13 08/05/23 Hgb 12.5 g/dL (12.0-15.0) 08/05/23 11:13 08/05/23 Hct 39.2 % (37-47) 08/05/23 11:13 08/05/23 Plt Count 248 K/mm3 (150-450) 08/05/23 11:13 08/05/23 CHEMISTRY Potassium 4.1 mmol/L (3.5-5.1) 08/05/23 11:13 08/05/23 Sodium 141 mmol/L (136-145) 08/05/23 11:13 08/05/23 Magnesium 2.1 mg/dL (1.6-2.6) 03/26/20 08:38 03/26/20 BUN 18 mg/dL (7-18) 08/05/23 11:13 08/05/23 Creatinine 0.89 mg/dL (0.55-1.02) 08/05/23 11:13 08/05/23 Glucose 86 mg/dL (74-106) 08/05/23 11:13 08/05/23 POC Glucose 104 mg/dL (70-110) 04/02/20 10:58 04/02/20 TSH 2.05 uIU/mL (0.358-3.74) 05/07/22 09:16 05/07/22 COAG PT 12.5 SECONDS (11.7-14.9) 04/06/21 10:06 04/06/21 Pre-Assessment Diagnosis/Proposed Procedure Planned Operative Procedure(s): EGD/CSCOPE Anesthesia History Anesthesia History - 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 When Was Last Pacemaker Check QUESTION #4 FULL TEXT: You/Your Family Experience fever (hyperthermia) with Anesthesia Last Oral Intake Last Oral intake: Last Oral Intake NPO since 04:45 08/09/24 07:48 Meds taken in AM with sips of Yes 08/09/24 07:48 water? Meds patient instructed to PRILOSEC DOS 08/09/24 07:48 take am of surgery PONV PONV - aoc airspace control officer: PONV - aoc airspace control officer Female Yes 08/07/24 11:10 HX of Motion Sickness Yes 08/07/24 11:10 HX of N/V After Surgery No 08/07/24 11:10 Non-Smoker Yes 08/07/24 11:10 Duration of Surgery greater No 08/07/24 11:10 than 60 minutes Number of Risk Factors 3 08/07/24 11:10 PONV Score Moderate Risk 08/07/24 11:10 Height & Weight Height & Weight: Anesthesia: Height & Weight Height 5 ft 5 in 08/09/24 07:48 Weight: 69 kg 08/09/24 07:48 Body Mass Index (BMI) 25.3 08/09/24 07:48 Respiratory Assessment Respiratory Assessment - aoc airspace control officer: Respiratory Tract Infection Hx - aoc airspace control officer Hx Respiratory Tract Infection No 08/07/24 11:10 STOP Sleep Apnea STOP Sleep Apnea - aoc airspace control officer: STOP Sleep Apnea - aoc airspace control officer Hx Hypertension No 08/07/24 11:10 Hx Sleep Apnea No 08/07/24 11:10 CPAP BIPAP Do you snore loudly (louder No 08/07/24 11:10 than talking or can be heard Do you often feel tired/ No 08/07/24 11:10 fatigued/ sleepy during daytime? Has anyone observed you stop No 08/07/24 11:10 breathing during sleep? STOP Results Negative 08/07/24 11:10 QUESTION #5 FULL TEXT : Do you snore loudly (louder than talking or can be heard through closed doors)? Tobacco Use History Tobacco Use History - aoc airspace control officer: Tobacco Use History - aoc airspace control officer Tobacco Use Smoking Status Never smoker 08/07/24 11:10 Hx Tobacco Use No 08/07/24 11:10 Years Smoking Packs Smoked per Day Smoking Cessation Date was within the last 15 years Hx Smoking Cessation Date Hx Smoking Cessation Counseling Hematologic Medial History Hematologic Hx - aoc airspace control officer: Hematologic Medical Hx - senior program manager Hx of Blood Transfusion Yes 08/07/24 11:10 Hx of Transfusion in last 3 No 08/07/24 11:10 Months Date of Last Transfusion (if within last 3 months) Ever experience any problems No 08/07/24 11:10 with transfusion(s)? Specify any problems Hx of Preganancy in last 3 No 08/07/24 11:10 Months Nurse Filling Out Transfusion DSCHRIBER 08/07/24 11:10 & Questions: Date: 08/07/24 08/07/24 11:10 Time: 11:11 08/07/24 11:10 Patient unable to answer at this time (ie. confused, unrespo /Reproduction History /Reproductive History - aoc airspace control officer: /Reproductive Hx- aoc airspace control officer Hx Now No 08/07/24 11:10 Gestational Age (in weeks): EDC: Hx Hx Para Hx Section SAB No 08/07/24 11:10 PFSH Medical History Cancer Low iron Injury of head and neck Back pain Dietary restriction Difficulty swallowing History of hiatal hernia History of IBS Gastric reflux Leg cramps History of pain when walking Osteopenia Hyperlipidemia Pancreatic divisum Pancreatic insufficiency Arthritis Breast cancer Diarrhea Constipation Home Medications ?Medication ?Instructions ?Recorded ?Last Taken ?Type cholecalciferol (vitamin D3) 50 2,000 unit PO DAILY SUPPLEMENT 08/16/16 Unknown History mcg (2,000 unit) capsule montelukast 10 mg tablet 10 mg PO QHS ALLERGIES 08/16/16 Unknown History fluticasone propionate 50 2 spray intranasal QDAY ALLERGIES 01/12/18 Unknown History mcg/actuation nasal spray,suspension loratadine 5 mg-pseudoephedrine ER 1 ea PO DAILY ALLERGIES 03/17/20 Unknown History 120 mg tablet,extended release,12hr celecoxib 200 mg capsule 200 mg PO DAILY 02/19/22 Unknown History omeprazole 20 mg capsule,delayed 40 mg PO BID Indigestion 11/29/23 Unknown History release sennosides 8.6 mg-docusate sodium 1 tab-cap PO QDAY 11/29/23 Unknown History 50 mg tablet oolcba-phnwkoxs-evlvpyu 2 cap PO .tidac 90 days #1,200 caps 03/11/24 Unknown Rx 36,000-114,000-180,000 unit capsule,delay rel ([place]) Allergy/AdvReac Type Severity Reaction Status Date / Time shellfish derived Allergy Intermediate Hives Verified 08/07/24 11:08 latex Allergy Rash Verified 08/07/24 11:08 oxycodone Allergy UTACARIA Verified 08/07/24 11:08 milk (cow milk) AdvReac Severe Diarrhea Verified 08/07/24 11:19 egg (egg whites) AdvReac Intermediate Diarrhea Verified 08/07/24 11:19 acetaminophen (From [place]) AdvReac Nausea Verified 08/07/24 11:08 atorvastatin (From Lipitor) AdvReac MUSCLE Verified 08/07/24 11:08 CRAMPS hydrocodone (From [place]) AdvReac Nausea Verified 08/07/24 11:08 pravastatin AdvReac MUSCLE Verified 08/07/24 11:08 CRAMPS Family History Mother Arthritis Bleeding disorder Breast cancer Cancer oral cancer Brother Arthritis Grandmother Bleeding disorder Surgical History (Updated 08/07/24 @ 11:17 by Amber Neri) Hx of spinal surgery hhistory left carpal tunnel release History of revision of total knee arthroplasty History of total knee replacement history knee scope and meniscal repair History of lumpectomy of left breast History of spinal fusion History of hysterectomy History of History of rhinoplasty History of tonsillectomy Social History Smoking Status: Never smoker alcohol intake: current alcohol intake frequency: a few times a month substance use type: does not use Review of Systems (Anesthesia) ROS Narrative System reviewed and no additional complaints, except as documented.
--- NOTE | 2024-08-09 08:45 | IMM_PTH ---
PATIENT: BEENA RIGGS LOC: EN U#:[id number] AGE/SX: 73/F ROOM: RE08/09/[address]: Dr. José Miguel Nguyen DO : 1950 BED: DIS: 08/09/2024 SPEC #: [id number] RECD: 08/09/24 13:14 STATUS: CALE REArpit #: [id number] ELMER: 08/09/24 08:[address]: José Miguel Nguyen DEPT: IMMUNOHISTOCHEMISTRY RECD BY: Lucio Ross ENTERED: 08/09/24 13:15 SP TYPE: IMMUNO OTHR DR: Dr. Go Davis DO Tissues: B - Gastric mucous membrane Procedures: H Pylori (initial) PHYSICIAN & INSTITUTION [place] [id number] SPECIMEN INFORMATION: Tissue Source: B- Gastric body biopsy Clinical Info: Exocrine pancreatic insufficiency, GERD, pancreas divisum, dysphagia, bloating Specimen Number: [id number] CPT code: 38371 METHODOLOGY: Deparaffinized sections of prefer/formalin-fixed tissue or PAP/DQ stained slides are incubated with monoclonal/polyclonal antibodies/oligonucleotide probes. Localization is made via biotin free immunoperoxidase method. Appropriate controls are performed and reacted as expected. Results on target cell population are indicated in the following table: RESULTS: ANTIBODY / CLONE RESULT Block B H Pylori (polyclonal) negative These tests were developed and their performance characteristics determined by [facility]. They may not have been cleared or approved by the U.S. Food and Drug Administration. The FDA has determined that such clearance or approval is not necessary. The above immunohistochemical/dualISH markers are ordered and reviewed by the Pathologist. INTERPRETATION: B. Gastric body, biopsy: Negative for Helicobacter pylori organisms. 08/10/2024
--- NOTE | 2024-08-09 08:45 | COLBX_PTH ---
PATIENT: BEENA RIGGS LOC: EN U#:[id number] AGE/SX: 73/F ROOM: RE08/09/[address]: Dr. José Miguel Nguyen DO : 1950 BED: DIS: 08/09/2024 SPEC #: [id number] RECD: 08/09/24 11:56 STATUS: CALE REArpit #: [id number] ELMER: 08/09/24 08:[address]: José Miguel Nguyen DEPT: SURGICAL PATHOLOGY RECD BY: Martin Dooley ENTERED: 08/09/24 11:57 SP TYPE: COLON BX OTHR DR: Dr. Go Davis DO Tissues: A - Duodenum, NOS B - Gastric mucous membrane C - Esophagus, NOS Procedures: Special Stain Group I Surgery Specimen Level IV Alcian Blue/PAS (control) HEADER OPERATION: Colonoscopy, EGD with biopsy PRE-OP DIAGNOSIS: Exocrine pancreatic insufficiency, GERD, pancreas divisum, dysphagia, bloating TISSUE SUBMITTED: A- Duodenum biopsy, B- Gastric body biopsy, C- Random esophagus biopsy MICROSCOPIC DIAGNOSIS A. Duodenum, biopsy: Fragments of duodenal mucosa, no pathologic diagnosis. B. Gastric body, biopsy: Mild gastritis. See microscopic description and comment. C. Esophagus, random biopsy: Fragments of benign squamous epithelium. A few minute fragments of gastric mucosa with chronic inflammation. Intestinal metaplasia (goblet cell metaplasia) not identified. See comment. 08/10/2024 COMMENT B. The results of immunohistochemistry for Helicobacter pylori will be reported separately ([id number]). C. Alcian blue/PAS stain with matched control is used in the evaluation of the specimen. MICROSCOPIC DESCRIPTION Slides are reviewed. B. The specimen shows fragments of gastric mucosa with chronic inflammatory cell infiltrates in the lamina propria consisting of lymphocytes and plasma cells, consistent with mild chronic gastritis. GROSS DESCRIPTION A. Received in fixative is one container labeled with the patient's name and designated Duodenum biopsy. The specimen consists of two irregular fragments of light magallanes soft tissue that in aggregate measure 1 x 0.3 x 0.1 cm. The specimen is totally submitted in one cassette. B. Received in fixative is one container labeled with the patient's name and designated Gastric body biopsy. The specimen consists of two irregular fragments of light magallanes soft tissue that in aggregate measure 1.2 x 0.4 x 0.1 cm. The specimen is totally submitted in one cassette. C. Received in fixative is one container labeled with the patient's name and designated Random esophagus biopsy. The specimen consists of two irregular fragments of light magallanes soft tissue that in aggregate measure 0.6 x 0.5 x 0.1 cm. The specimen is totally submitted in one cassette. 08/09/2024 TC:3 CPT:11582f9,44284
--- NOTE | 2024-08-09 08:52 | HP.PCM_ITS ---
HPI - General General Date of Admission: 08/09/24 Date of Service: 08/09/24 Chief Complaint: dysphagia HPI Narrative BEENA RIGGS, is a 73 F who presents for the endoscopic evaluation of dysphagia Previous workup:? CT abd for abnormal kidney US 07.31.18?noting hepatomegaly; minimal hiatal hernia; moderately distended colon with stool. Left kidney mass likely fatty density or myolipoma.? ? *BGI established 05.07.22 with referral from PCP. Belching, flatulence, emesis associated with poor diet choices, BM are regular but the stools vary between normal and watery. She has made dietary changes to limit fluids to water or tea and reduction of sugar. Avoids dairy and cheese, reduces spicy foods. Feels she has chemical allergies: when she uses medications or antibiotics she will have difficulty with emesis.? Pancreatic divisum with inefficiency managed with Creon lower dose, one capsule with meals.? REARDON not previously managed.? GERD is managed with omeprazole QD.? IBS Buspar previously attempted by Dr. Che and suffered significant adverse effects.?Biochemical workup?CMP, CRP, LDH, CBC, ESR, AMA, ASM, hepatitis, ANGELA, ANCA, celiac, GAME, T3, T4, TSH without pertinent abnormality.? A1c H5.9? RAST Cow?s milk, egg equivocal/low. Allergen ragweed, cockroach equivocal/low?US RUQ and elastography 05.21.22?with hepatic measurement 14.1cm with fatty infiltration and stiffness of 5 kPa, F0/1.?Gastric emptying study 05.26.22?timed at 36.25 minutes (12-56).? Contact 06.10.22 to review results and symptoms.?Increase creon to three capsules with each meal. If effective will send higher dose of creon for symptom management.? OV 09.06.22 feels with increase of Creon she is doing better in regard to her symptoms. She has questions about what kind of a diet to help manage EPI and reflux. Feels she has been having dysphagia not requiring emergent intervention; occurs at random intervals and with various foods.?MRCP 09.09.22?noting pancreatic divisum without mass or ductal dilation.? Contact 01.20.23 doing well with use of doxycycline with reduction of belching and flatulence.?Continue Doxycycline? Contact 03.03.23 continue to be doing better following use of doxycycline.? Additional course of doxycycline versus simethicone.? ? OV 06.17.23- Pt says she was doing very well until around Thanksgiving time. Says she must have eaten something she shouldn't have and has been struggling since. Has episodes of pain under her ribs followed by bloating and abdominal pain. Says sx occur mostly at nighttime. Does not have the heartburn or bad taste in mouth anymore since taking OTC Simethicone. BM are normal unless she is having abdominal pain and then will have diarrhea. OV 11.29.23 pt reports a worsening cough from previous visit. States that she is not sleeping well due to cough and pain in her ribcage from cough as well. Pt reports 2 bm in the morning; denies blood in the stool. Continues with Creon and Omeprazole. modified barium swallow .08.13 OV 05.29.24 [facility] Medical History Cancer Low iron Injury of head and neck Back pain Dietary restriction Difficulty swallowing History of hiatal hernia History of IBS Gastric reflux Leg cramps History of pain when walking Osteopenia Hyperlipidemia Pancreatic divisum Pancreatic insufficiency Arthritis Breast cancer Diarrhea Constipation Home Medications ?Medication ?Instructions ?Recorded ?Last Taken ?Type cholecalciferol (vitamin D3) 50 2,000 unit PO DAILY VOGEL PPLEMENT 08/16/16 Unknown History mcg (2,000 unit) capsule montelukast 10 mg tablet 10 mg PO QHS ALLERGIES 08/16 Unknown History fluticasone propionate 50 2 spray intranasal QDAY OSORIO RGIES 01/12/18 Unknown History mcg/actuation nasal spray,suspension loratadine 5 mg-pseudoephedrine ER 1 ea PO DAILY ALLER GIES 03/17/20 Unknown History 120 mg tablet,extended release,12hr celecoxib 200 mg capsule 200 mg PO DAILY 02/19/22 Unk nown History omeprazole 20 mg capsule,delayed 40 mg PO BID Indigest ion 11/29/23 Unknown History release sennosides 8.6 mg-docusate sodium 1 tab-cap PO QDAY Unknown History 50 mg tablet nsaqwv-[id number] 2 cap PO .tidac 90 days #1,2 00 caps 03/11/24 Unknown Rx 36,000-114,000-180,000 unit capsule,delay rel (Creon) Allergy/AdvReac Type Severity Reaction Status Date / Time shellfish derived Allergy Intermediate Hives Verified 08/07/24 11:08 latex Allergy Rash Verified 08/07/24 11:08 oxycodone Allergy UTACARIA Verified 08/07/24 11:08 milk (cow milk) AdvReac Severe Diarrhea Verified 08/07/24 11:19 egg (egg whites) AdvReac Intermediate Diarrhea Verified 08/07/24 11:19 acetaminophen (From [place]) AdvReac Nausea Verified 08/07/24 11:08 atorvastatin (From Lipitor) AdvReac MUSCLE Verified 08/07/24 11:08 CRAMPS hydrocodone (From [place]) AdvReac Nausea Verified 08/07/24 11:08 pravastatin AdvReac MUSCLE Verified 08/07/24 11:08 CRAMPS Family History Mother Arthritis Bleeding disorder Breast cancer Cancer oral cancer Brother Arthritis Grandmother Bleeding disorder Surgical History Hx of spinal surgery hhistory left carpal tunnel release History of revision of total knee arthroplasty History of total knee replacement history knee scope and meniscal repair History of lumpectomy of left breast History of spinal fusion History of hysterectomy History of History of rhinoplasty History of tonsillectomy Social History Smoking Status: Never smoker alcohol intake: current alcohol intake frequency: a few times a month substance use type: does not use ROS Constitutional Constitutional: Denies fatigue, fever(s), poor appetite, weight gain or weight loss Gastrointestinal Gastrointestinal: Denies belching, bloating, change in bowel habits, change in stool character, chewing difficulty, coffee ground emesis, constipation, cramping, diarrhea, dyspepsia, dysphagia, early satiety, excessive flatus, fecal incontinence, heartburn, hematemesis, hematochezia, hemorrhoids, loose stools, melena, nausea, odynophagia, rectal bleeding, tenesmus, vomiting or weight changes Vital Signs Vital Signs Vital Signs: 08/09/24 07:48 08/09/24 07:48 08/09/24 08:23 Temperature 98.3 F 98.3 F Temperature Source Temporal Pulse Rate 88 88 Respiratory Rate 16 16 Respiratory Pattern Normal Blood Pressure 146/87 H 146/87 H Blood Pressure Mean 106 Blood Pressure Source Monitor Blood Pressure Position Sitting Blood Pressure Location Right Arm Pulse Ox 100 100 Oxygen Delivery Method Room Air Room Air Weight Weight: 152 lb 1.903 oz Body Mass Index (BMI) 25.3 Physical Exam Const alert, oriented x3, no apparent distress and healthy appearing General Appearance: cooperative GI normal to inspection, nondistended, normoactive bowel sounds, soft to palpation, non-tender and non-distended Percussion: normal to percussion Rectal Exam: deferred Assessment & Plan Assessment/Plan (1) Dysphagia: (2) Pancreas divisum: (3) Bloating: PLAN: Assessment and Plan Assessment and Plan (1) Exocrine pancreatic insufficiency: Status: Chronic Plan: Exocrine pancreatic insufficiency due to very low elastase that was seen on stool test. She is responding very well to pancreatic enzyme supplementation. She has no sign of small bacterial overgrowth, inflammatory bowel disease, small bowel vasculitis, chronic pancreatitis which all can lead to exocrine pancreatic insufficiency. She does have hemoglobin A1c of 5.9 which can be associated with mild exocrine pancreatic insufficiency. Did recommend strict glucose control and trying to maintain caloric intake of no more than 1500 kcal a day being mostly protein-based. She has increased her pancreatic enzymes to 2-3 with each meal and snacks. She feels like this has made a significant improvement in her symptoms of bloating, abdominal pain and diarrhea. We will continue that at current dosing until she is seen again in the office in approximately 4 months. (2) GERD (gastroesophageal reflux disease): Status: Chronic Qualifiers: Esophagitis presence: without esophagitis Qualified Code(s): K21.9 - Gastro-esophageal reflux disease without esophagitis Plan: She has been on antireflux diet and trying to eliminate as much trigger foods as possible. She did food allergy testing and does have allergies to whole milk and eggs and with reduction in those foods substances she has noticed decreased heartburn and regurgitation symptoms. She is known to have a small hiatal hernia but does not need intervention. It was defined as a sliding hiatal hernia. (3) Pancreas divisum: Status: Acute Plan: She does get occasional abdominal pain with bloating to the back. Her last MRCP was back in 2005. We will repeat her MRI to visualize her hepatobiliary system. (4) Dysphagia: Status: Acute Plan: She was complaining of intermittent esophageal dysphagia that sounded like either eosinophilic esophagitis with mild intermittent symptoms, esophageal spasm, esophageal dysmotility or esophageal diverticulum. At this time it is not bothering her enough to want to do any imaging studies or the regularization via endoscopy. We will see how she does further with subsequently food elimination and if his symptoms continue she may need a barium swallow or upper endoscopy. (5) Bloating: Status: Acute Plan: Secondary to bacteria overgrowth. Start doxycycline BID and baclofen. Coding
--- NOTE | 2024-08-09 09:43 | OP.CCLET_ITS ---
08/09/2024 Go Davis [address] [place] [address] Re : Upper GI endoscopy procedure for Keyla Atwood Dear Dr. Davis This procedure was performed on July. My impressions and recommendations are as follows: Impressions : - Abnormal esophageal motility, suspicious for scleroderma. - Chronic gastritis. Biopsied. - Erythematous duodenopathy. Biopsied. Recommendations : - Discharge patient to home. - Resume previous diet. - Continue present medications. - Await pathology results. My findings are described in the full procedure note, which is enclosed. If I can be of further assistance, please feel free to contact me at . Sincerely, José Miguel Nguyen, 08/09/2024 9:43:07 AM This report has been signed electronically.
--- NOTE | 2024-08-09 09:43 | OP.EGD_ITS ---
Patient Name: Keyla Atwood Procedure Date: 08/09/2024 8:59 AM Date of : 1950 Age: 73 Procedure: Upper GI endoscopy Indications: Epigastric abdominal pain, Functional Dyspepsia, Dysphagia Providers: José Miguel Nguyen DO Referring MD: Go Davis Medicines: Monitored Anesthesia Care Patient Profile: This is a 73 year old female. Refer to note in patient chart for documentation of history and physical. Patient has symptoms of chronic abdominal cramping, chronic epigastric abdominal pain and dysphagia with both liquids and solids. Complications: No immediate complications. Procedure: Pre-Anesthesia Assessment: - Prior to the procedure, a History and Physical was performed, and patient medications and allergies were reviewed. The patient is competent. The risks and benefits of the procedure and the sedation options and risks were discussed with the patient. All questions were answered and informed consent was obtained. Patient identification and proposed procedure were verified by the physician in the pre-procedure area. Mental Status Examination: alert and oriented. Airway Examination: normal oropharyngeal airway and neck mobility. Respiratory Examination: clear to auscultation. CV Examination: normal. Prophylactic Antibiotics: The patient does not require prophylactic antibiotics. Prior Anticoagulants: The patient has taken no anticoagulant or antiplatelet agents. ASA Grade Assessment: II - A patient with mild systemic disease. After reviewing the risks and benefits, the patient was deemed in satisfactory condition to undergo the procedure. The anesthesia plan was to use monitored anesthesia care (MAC). Immediately prior to administration of medications, the patient was re-assessed for adequacy to receive sedatives. The heart rate, respiratory rate, oxygen saturations, blood pressure, adequacy of pulmonary ventilation, and response to care were monitored throughout the procedure. The physical status of the patient was re-assessed after the procedure. After obtaining informed consent, the endoscope was passed under direct vision. Throughout the procedure, the patient's blood pressure, pulse, and oxygen saturations were monitored continuously. The colonoscope was introduced through the mouth, and advanced to the second part of duodenum. The upper GI endoscopy was accomplished without difficulty. The patient tolerated the procedure well. Scope In: 9:09:37 AM Scope Out: 9:14:19 AM Total Procedure Duration Time 0 hours 4 minutes 42 seconds Findings: Abnormal motility was noted in the lower third of the esophagus. The cricopharyngeus was abnormal. There is a decrease in motility of the esophageal body. The distal esophagus/lower esophageal sphincter is spastic, but gives up passage to the endoscope. Diffuse moderate inflammation characterized by congestion (edema) and erythema was found in the gastric body. Biopsies were taken with a cold forceps for histology. Verification of patient identification for the specimen was done. Estimated blood loss was minimal. Diffuse moderately erythematous mucosa without active bleeding and with no stigmata of bleeding was found in the duodenal bulb, in the first portion of the duodenum and in the second portion of the duodenum. Biopsies were taken with a cold forceps for histology. Verification of patient identification for the specimen was done. Estimated blood loss was minimal. A hiatal hernia was present. [Severity] erythematous mucosa [Bleeding] was found in the stomach. Impression: - Abnormal esophageal motility, suspicious for scleroderma. - Chronic gastritis. Biopsied. - Erythematous duodenopathy. Biopsied. Recommendation: - Discharge patient to home. - Resume previous diet. - Continue present medications. - Await pathology results. Procedure Code(s): --- Professional --- 02796, Esophagogastroduodenoscopy, flexible, transoral; with biopsy, single or multiple CPT copyright 2021 [employer]. All rights reserved. The codes documented in this report are preliminary and upon elevated motorman review may be revised to meet current compliance requirements. José Miguel Nguyen DO 08/09/2024 9:43:07 AM This report has been signed electronically. Number of Addenda: 0 Note Initiated On: 08/09/2024 8:59 AM
--- NOTE | 2024-08-09 09:43 | PCM.POST.ANE ---
Anesthesia: Postop Eval I Current Vital Signs Temperature: 97.8 F Pulse Rate: 80 Blood Pressure: 137/81 Respiratory Rate: 16 Pulse Ox: 96 Oxygen Delivery Method: Room Air Assessment Airway patent: Yes Spontaneous unlabored respirations: Yes Mental status: Awake and Calm nausea: No Vomiting: No Anesthesia Complication: No Fluid Hydration Crystalloid volume administer (ml): 60 Total IV fluid infused: 60 Progress Note Anesthesia document: Postop Eval 1 completed: Yes
--- NOTE | 2024-08-09 09:45 | OP.CCLET_ITS ---
08/09/2024 Go Davis [address] [place] [address] Re : Colonoscopy procedure for Keyla Atwood Dear Dr. Davis This procedure was performed on July. My impressions and recommendations are as follows: Impressions : - Diverticulosis in the recto-sigmoid colon and in the sigmoid colon. - Tortuous colon. - No specimens collected. Recommendations : - Discharge patient to home. - Resume previous diet. - Continue present medications. - Repeat colonoscopy in 5 years for surveillance. My findings are described in the full procedure note, which is enclosed. If I can be of further assistance, please feel free to contact me at . Sincerely, José Miguel Nguyen, 08/09/2024 9:45:36 AM This report has been signed electronically.
--- NOTE | 2024-08-09 09:45 | OP.COLON_ITS ---
Patient Name: Keyla Atwood Procedure Date: 08/09/2024 9:15 AM Date of : 1950 Age: 73 Procedure: Colonoscopy Indications: Screening for colorectal malignant neoplasm Providers: José Miguel Nguyen DO Referring MD: Go Davis Medicines: Monitored Anesthesia Care Patient Profile: This is a 73 year old female. Refer to note in patient chart for documentation of history and physical. Patient has symptoms of chronic abdominal cramping, chronic epigastric abdominal pain and dysphagia with both liquids and solids. Last Colonoscopy: date unknown. Unable to locate last colonoscopy report. Complications: No immediate complications. Procedure: Pre-Anesthesia Assessment: - Prior to the procedure, a History and Physical was performed, and patient medications and allergies were reviewed. The patient is competent. The risks and benefits of the procedure and the sedation options and risks were discussed with the patient. All questions were answered and informed consent was obtained. Patient identification and proposed procedure were verified by the physician in the pre-procedure area. Mental Status Examination: alert and oriented. Airway Examination: normal oropharyngeal airway and neck mobility. Respiratory Examination: clear to auscultation. CV Examination: normal. Prophylactic Antibiotics: The patient does not require prophylactic antibiotics. Prior Anticoagulants: The patient has taken no anticoagulant or antiplatelet agents. ASA Grade Assessment: II - A patient with mild systemic disease. After reviewing the risks and benefits, the patient was deemed in satisfactory condition to undergo the procedure. The anesthesia plan was to use monitored anesthesia care (MAC). Immediately prior to administration of medications, the patient was re-assessed for adequacy to receive sedatives. The heart rate, respiratory rate, oxygen saturations, blood pressure, adequacy of pulmonary ventilation, and response to care were monitored throughout the procedure. The physical status of the patient was re-assessed after the procedure. After I obtained informed consent, the scope was passed under direct vision. Throughout the procedure, the patient's blood pressure, pulse, and oxygen saturations were monitored continuously. The colonoscope was introduced through the anus and advanced to the cecum, identified by appendiceal orifice and ileocecal valve. The colonoscopy was performed without difficulty. The patient tolerated the procedure well. The quality of the bowel preparation was adequate. The ileocecal valve, appendiceal orifice, and rectum were photographed. Scope In: 9:16:03 AM Scope Withdrawal Time 0 hours 6 minutes 49 seconds Scope Out: 9:33:35 AM Total Procedure Duration Time 0 hours 17 minutes 32 seconds Findings: The perianal and digital rectal examinations were normal. Multiple small-mouthed diverticula were found in the recto-sigmoid colon and sigmoid colon. The sigmoid colon, descending colon and splenic flexure were significantly tortuous. Impression: - Diverticulosis in the recto-sigmoid colon and in the sigmoid colon. - Tortuous colon. - No specimens collected. Recommendation: - Discharge patient to home. - Resume previous diet. - Continue present medications. - Repeat colonoscopy in 5 years for surveillance. Procedure Code(s): --- Professional --- G0121, Colorectal cancer screening; colonoscopy on individual not meeting criteria for high risk CPT copyright 2021 [employer]. All rights reserved. The codes documented in this report are preliminary and upon pre coder review may be revised to meet current compliance requirements. José Miguel Nguyen DO 08/09/2024 9:45:36 AM This report has been signed electronically. Number of Addenda: 0 Note Initiated On: 08/09/2024 9:15 AM
--- NOTE | 2024-08-09 12:29 | PCM.POSTANE2 ---
Anesthesia Postop Eval I Sum Postop Eval Completion status Anesthesia document: Postop Eval 1 completed: Yes Anesthesia Postop Eval I Summary Anesthesia Postop Eval I Summary: Anesthesia Postop Eval I: Assessment Summary Airway patent Yes 08/09/24 09:44 [email or web address] Spontaneous unlabored Yes 08/09/24 09:44 [email or web address] respirations Mental status Awake,Calm 08/09/24 09:44 [email or web address] nausea No 08/09/24 09:44 [email or web address] Vomiting No 08/09/24 09:44 [email or web address] Anesthesia Postop Eval I: Fluid Summary Crystalloid volume administer 60 08/09/24 09:44 [email or web address] (ml) Colloids volume administered ( ml) Blood Product volume administered (ml) Total IV fluid infused 60 08/09/24 09:44 [email or web address] Anesthesia Postop Eval I: Summary Notes Anesthesia Complication No 08/09/24 09:44 [email or web address] Anesthesia Complication Comment: Post-operative progress note Anesthesia: Postop Eval II Evaluation Mental status: Awake and Calm Pain Level: 0 nausea: No Vomiting: No Complications Anesthesia Complication: No
== END 2024-08-09 10:22 | disposition home or self-care (01) ==
LOC: EN 07:32 → AC 07:33
PROVIDERS: PCP Family Medicine; Referring Provider Family Medicine; Visit Provider Internal Medicine Gastroenterology
PROC: 0DJD8ZZ Inspection of Lower Intestinal Tract, Via Natural or Artificial Opening Endoscopic (ICD-10-PCS; CPT 45378; principal; 2024-08-09 08:40)
DX: Z12.11 Encounter for screening for malignant neoplasm of colon (principal); E78.5 Hyperlipidemia, unspecified; K57.30 Diverticulosis of large intestine without perforation or abscess without bleeding; K21.00 Gastro-esophageal reflux disease with esophagitis, without bleeding; K29.50 Unspecified chronic gastritis without bleeding; Q45.3 Other congenital malformations of pancreas and pancreatic duct; K86.81 Exocrine pancreatic insufficiency; K44.9 Diaphragmatic hernia without obstruction or gangrene; Z87.19 Personal history of other diseases of the digestive system
CPT/HCPCS: 43239; G0121; 88305; 88312; 88342; A4216; J2405

== ENCOUNTER → 2024-08-13 | Outpatient (CLI) | payer MEDICARE, SELFPAY ==
[2024-08-13 17:48] LABS: Absolute Neutrophil Count 5.5 X10^3/uL (2.0-7.7); Basophil# 0.07 X10^3/uL; Basophil% 0.8 % (0-1); Eosinophil# 0.19 X10^3/uL; Eosinophils% 2.2 % (0-5); Hematocrit 40.6 % (37-47); Hemoglobin 13.2 g/dL (12.0-15.0); Lymphocyte % 24.6 % (19-41); Mean Corp Hgb Conc 32.5 g/dL (32-36); Mean Corpuscular Hgb 31.8 pg (27.0-32.0); Mean Corpuscular Volume 97.8 fL (81-99); Mean Platelet Vol. 11.1 fl (6.2-12.0); Monocyte# 0.63 X10^3/uL; Monocyte% 7.4 % (0-10); NRBC Flagged by Analyzer 0 % (0-5); Neutrophil # 5.52 X10^3/uL (2.7-7.7); Neutrophil % 64.6 % (47-70); Platelet Count 261 K/mm3 (150-450); RBC Distribution Width CV 12.3 % (11.6-14.6); RBC Distribution Width SD 44.3 fl (35.1-43.9); Red Blood Count 4.15 M/mm3 (4.2-5.4); White Blood Count 8.5 K/mm3 (4.4-11.0)
[2024-08-13 18:29] LABS: ALB/GLOB Ratio 1.1 RATIO (0.9-2.4); AST(SGOT) 24 U/L (15-37); Alanine Aminotransfer ALT/SGPT 29 U/L (13-56); Alkaline Phosphatase 95 U/L (45-117); Anion Gap 8 (5-15); BUN 11 mg/dL (7-18); BUN/Creat Ratio 14.6 RATIO (10-20); CRP < 2.90 mg/L (0.0-3.0); Calcium,Total 9.6 mg/dL (8.5-10.1); Chloride 106 mmol/L (98-107); Cholesterol 251 mg/dL (200); Creatinine, Serum 0.75 mg/dL (0.55-1.02); EST Glomerular Filtration Rate 80 mL/min (>60); Est Glom Filt Rate - Afr Amer 97 mL/min (>60); Globulin 3.7 g/dL (2.2-4.2); Glucose 84 mg/dL (74-106); High Density Lipoprotein 71 mg/dL; Potassium 3.7 mmol/L (3.5-5.1); Protein, Total 7.7 g/dL (6.4-8.2); Sodium Level 140 mmol/L (136-145); Triglycerides 174 mg/dL; Very Low Density Lipoprotein 35 mg/dL (5-40)
[2024-08-13 18:57] LABS: Erythrocyte Sedimentation Rate 9 mm/hr (0-30)
[2024-08-13 19:47] LABS: Hemoglobin A1c 5.7 % (3.8-5.6)
[2024-08-15 08:09] LABS: ANTINUCLEAR ANTIBODIES DIRECT Negative (Negative)
== END | disposition home or self-care (01) ==
LOC: BFHLAB 13:56
PROVIDERS: PCP Family Medicine; Visit Provider Family Medicine
DX: I10 Essential (primary) hypertension (principal); E78.5 Hyperlipidemia, unspecified; R73.03 Prediabetes; K22.4 Dyskinesia of esophagus; M25.50 Pain in unspecified joint; I73.00 Raynaud's syndrome without gangrene
CPT/HCPCS: 36415; 80053; 80061; 83036; 85025; 85652; 86038; 86140; 86225; 86235

== ENCOUNTER → 2024-10-15 | Outpatient (CLI) | payer MEDICARE, SELFPAY ==
--- NOTE | 2024-10-15 07:55 | CT_ITS ---
PROCEDURE: ABDOMEN/PELVIS WITH CONTRAST, 10/15/2024 REASON FOR EXAM: ABD PAIN TECHNIQUE: CT abdomen and pelvis was performed with IV contrast. Multiplanar reformats were generated. IV CONTRAST: Isovue-300 VOLUME: 87mL Oral contrast also administered, however type and dose information not provided. RADIATION DOSE SUMMARY: CTDlvol: 16.62+ 17.11 mGy DLP: 871.78 mGycm One or more dose reduction techniques were used (e.g., Automated exposure control, adjustment of the mA and/or kV according to patient size, use of iterative reconstruction technique). COMPARISON: None FINDINGS: Exam limited by streak artifact related to lumbar spinal fusion hardware as well as a spinal stimulator generator/lead. Lung bases: Atelectasis/scarring. Coronary atherosclerosis and/or stents. Mild aortic annular calcification.. Liver: Steatosis. Spleen: Unremarkable. Gallbladder: Unremarkable. Pancreas: Unremarkable. Adrenals: Unremarkable. Kidneys: Tiny hypodensity on the LEFT too small to characterize, likely a cyst.. Bowel: Malrotation is present, with failure of the duodenum to cross the midline inferior to the SMA as is typical. Majority of the colon is located in the LEFT abdomen and small bowel in the RIGHT abdomen. Cecum is located in the LEFT lower quadrant anteriorly. No bowel dilatation or convincing inflammation. Diverticulosis. Normal caliber appendix. Lymph nodes: Unremarkable. Vasculature: Mild atherosclerosis. Inversion of the SMA/SMV relationship is often seen with malrotation.. Peritoneum: Unremarkable. Bladder: Unremarkable. Reproductive Organs: Hysterectomy. Body Wall: Operative changes. Tiny fat containing umbilical hernia.. Bones: Demineralization. Multilevel spondylosis. Lumbar spinal fusion. Ascending thoracic spinal stimulator.. Trace thoracolumbar levoscoliosis. CT/Abdomen/Pelvis WITH Contrast IMPRESSION: 1. No acute findings. 2. Likely hepatic steatosis. Correlate for clinical and laboratory evidence of chronic liver disease. 3. Midgut malrotation. Note that this places the patient at risk for volvulus. 4. Additional description as above. Reading Location: [facility]
== END | disposition home or self-care (01) ==
LOC: CT 07:53
PROVIDERS: PCP Family Medicine; Referring Provider Internal Medicine Gastroenterology; Visit Provider Internal Medicine Gastroenterology
DX: R10.9 Unspecified abdominal pain (principal); R14.0 Abdominal distension (gaseous); K58.9 Irritable bowel syndrome, unspecified
CPT/HCPCS: 74177; Q9967; A4216

== ENCOUNTER → 2025-02-08 | Outpatient (CLI) | payer MEDICARE, SELFPAY ==
--- NOTE | 2025-02-08 10:19 | BI_ITS ---
EXAM: SCRN MAMM (CAD)W/MAURICE BILAT DATE: 02/08/2025 CLINICAL HISTORY: F, Age 74 y/o , SCREEN TECHNIQUE: SCRN MAMM (CAD)W/MAURICE BILAT COMPARISON: Prior exam(s) dated 02/08/2024, 02/03/2023, 02/02/2022. FINDINGS: TISSUE DENSITY: There are scattered areas of fibroglandular density. Bilateral Breast Mammographic Findings: No significant masses, calcifications or other abnormalities are identified. BI/SCRN MAMM (CAD)W/MAURICE BILAT IMPRESSION: There is no mammographic evidence of malignancy. OVERALL FINAL ASSESSMENT BI-RADS 1: NEGATIVE. RECOMMENDATION: Routine annual follow-up in 1 Year A letter with findings and recommendations will be mailed to the patient. Reading Location: [id number]
== END | disposition home or self-care (01) ==
LOC: OPBI 10:18
PROVIDERS: PCP Family Medicine; Referring Provider Family Medicine; Visit Provider Family Medicine
DX: Z12.31 Encounter for screening mammogram for malignant neoplasm of breast (principal)
CPT/HCPCS: 77063; 77067